=== PATIENT | female | born 1935 | race Caucasian/White ===

== ENCOUNTER → 2016-12-27 | Outpatient (CLI) | payer OTHER ==
[~2016-12-27] MED LIST: ASPI-435 PO; CALCTAB5 PO; CHOL100010 PO; FERR325T51 PO; GABA-112 PO; LSN/20125 PO; NIAC1TAB59 PO
--- NOTE | 2016-12-28 10:57 | MAMMOGRAPHY REPORT ---
BILATERAL DIGITAL SCREENING MAMMOGRAM WITH CAD: 12/27/2016 CLINICAL HISTORY: Routine screening. Patient has no complaints. TECHNIQUE: Bilateral CC and MLO views were obtained. Current study was also evaluated with a Comput er Aided Detection (CAD) system. COMPARISON: Comparison is made to exams dated: 11/27/2015 mammogram, 10/28/2014 mammogram, 10/25/2013 m ammogram, 11/07/2013 mammogram, 11/07/2013 ultrasound, and 10/24/2012 mammogram - [facility]. BREAST COMPOSITION: There are scattered areas of fibroglandular density in both breasts. FINDINGS: There are a few stable benign-appearing calcifications scattered in the breasts. Minimal vascular calcification. No suspicious mass, architectural distortion or cluster of suspicious micro calcifications is seen. IMPRESSION: ACR BI-RADS CATEGORY 1: NEGATIVE There is no mammographic evidence of malignancy. A 1 year screening mammogram is recommended. The p atient will receive written notification of the results. Approximately 10% of breast cancers are not detected with mammography. A negative mammographic repor t should not delay biopsy if a clinically suggestive mass is present. Mabel Sanchez M.D. ay/:12/27/2016 16:56:56 Boom Crane Operator: Danae ALONZO(Michael)(M), [facility] letter sent: Normal 1/2 BI-RADS Code: ACR BI-RADS Category 1: Negative
== END | disposition home or self-care (01) ==
LOC: C.MAMM 12:44
PROVIDERS: ATTEND Internal Medicine
DX: Z12.31 Encounter for screening mammogram for malignant neoplasm of breast (principal)

== ENCOUNTER → 2017-01-28 | Outpatient (CLI) | payer OTHER ==
[2017-01-28 12:38] LABS: BASO % 0.7 %; BASO ABS # 0.04 K/uL (0-0.2); COMPLETE YES; EOS % 3.6 %; HEMATOCRIT 34.2 % (37-47); IG% 0.2 %; LYMPH % 34.9 %; LYMPH ABS # 2.02 K/uL (1.2-3.4); MEAN CELL VOLUME 92.7 fL (80-100); MEAN CORPUSCULAR HEMOGLOBIN 30.1 pg (25-34); MEAN CORPUSCULAR HGB CONC 32.5 g/dl (32-36); MEAN PLATELET VOLUME 9.9 fL (7.4-10.4); MONO % 12.8 %; NEUT % 47.8 %; PLATELET COUNT 298 K/uL (130-400); RED BLOOD COUNT 3.69 M/uL (4.2-5.4); WHITE BLOOD COUNT 5.79 K/uL (4.8-10.8)
[2017-01-28 13:07] LABS: ALKALINE PHOSPHATASE 87 U/L (45-117); ALT/SGPT 17 U/L (12-78); AST/SGOT 15 U/L (15-37); BLOOD UREA NITROGEN 17 mg/dl (7-18); BUN/CREATININE RATIO 12.9 (10-20); CALCIUM 9.1 mg/dl (8.5-10.1); CARBON DIOXIDE 28 mmol/L (21-32); CHLORIDE 109 mmol/L (98-107); GLUCOSE 107 mg/dl (70-99); HDL CHOLESTEROL 74 mg/dl; POTASSIUM 3.9 mmol/L (3.5-5.1); SODIUM 142 mmol/L (136-145); TRIGLYCERIDES 126 mg/dl (0-150); VERY LOW DENSITY LIPOPROT CALC 25 mg/dl
[2017-01-28 13:12] LABS: CHOLESTEROL 200 mg/dl (0-200); CHOLESTEROL/HDL RATIO 2.7
[2017-01-28 13:34] LABS: ESTIMATED AVERAGE GLUCOSE 137 mg/dl; HA1C FLAG Normal (Normal)
== END | disposition home or self-care (01) ==
LOC: C.LABSPEC 12:22
PROVIDERS: ATTEND Internal Medicine
DX: D50.9 Iron deficiency anemia, unspecified (principal); N18.9 Chronic kidney disease, unspecified; I10 Essential (primary) hypertension; E11.9 Type 2 diabetes mellitus without complications; E78.5 Hyperlipidemia, unspecified

== ENCOUNTER → 2017-02-02 | Outpatient (CLI) | payer OTHER | END | disposition home or self-care (01) | LOC: C.PAPS 09:58 | PROVIDERS: ATTEND Internal Medicine | DX: Z12.4 Encounter for screening for malignant neoplasm of cervix (principal); Z78.0 Asymptomatic menopausal state ==

== ENCOUNTER → 2017-02-03 | Outpatient (CLI) | payer OTHER | END | disposition home or self-care (01) | LOC: C.LABSPEC 14:26 | PROVIDERS: ATTEND Internal Medicine | DX: Z12.11 Encounter for screening for malignant neoplasm of colon (principal) ==

== ENCOUNTER → 2017-07-28 | Outpatient (CLI) | payer OTHER ==
[2017-07-28 13:12] LABS: ALT/SGPT 17 U/L (12-78); AST/SGOT 17 U/L (15-37); BLOOD UREA NITROGEN 27 mg/dl (7-18); BUN/CREATININE RATIO 22.3 (10-20); CALCIUM 9.3 mg/dl (8.5-10.1); CARBON DIOXIDE 22 mmol/L (21-32); CHLORIDE 110 mmol/L (98-107); CHOLESTEROL 200 mg/dl (0-200); GLUCOSE 115 mg/dl (70-99); POTASSIUM 3.3 mmol/L (3.5-5.1); SODIUM 141 mmol/L (136-145); TRIGLYCERIDES 80 mg/dl (0-150); VERY LOW DENSITY LIPOPROT CALC 16 mg/dl
[2017-07-28 13:14] LABS: ALB/GLOB RATIO 1.1 (0.9-2); ALKALINE PHOSPHATASE 68 U/L (45-117); CHOLESTEROL/HDL RATIO 2.6; HDL CHOLESTEROL 78 mg/dl
[2017-07-28 14:15] LABS: ESTIMATED AVERAGE GLUCOSE 134 mg/dl; HA1C FLAG Normal (Normal)
== END | disposition home or self-care (01) ==
LOC: C.LABSPEC 12:19
PROVIDERS: ATTEND Internal Medicine
DX: I10 Essential (primary) hypertension (principal); E11.9 Type 2 diabetes mellitus without complications; N17.9 Acute kidney failure, unspecified

== ENCOUNTER → 2017-11-29 | Outpatient (CLI) | payer OTHER ==
[2017-11-29 14:16] LABS: ALBUMIN 3.5 gm/dl (3.4-5.0); ALT/SGPT 19 U/L (12-78); AST/SGOT 15 U/L (15-37); BLOOD UREA NITROGEN 35 mg/dl (7-18); CALCIUM 9.3 mg/dl (8.5-10.1); CARBON DIOXIDE 23 mmol/L (21-32); CREATININE 1.55 mg/dl (0.60-1.20); GLUCOSE 110 mg/dl (70-99); POTASSIUM 3.9 mmol/L (3.5-5.1); SODIUM 140 mmol/L (136-145)
[2017-11-29 14:17] LABS: HEMOGLOBIN A1C 6.6 % (4.5-5.6)
[2017-11-29 14:22] LABS: ALKALINE PHOSPHATASE 86 U/L (45-117); CHOLESTEROL 193 mg/dl (0-200); LDL CHOLESTEROL (DIRECT) 109 mg/dl; TOTAL PROTEIN 7.3 gm/dl (6.4-8.2)
== END | disposition home or self-care (01) ==
LOC: C.LABSPEC 12:38
PROVIDERS: ATTEND Internal Medicine
DX: I10 Essential (primary) hypertension (principal); E11.9 Type 2 diabetes mellitus without complications; N17.9 Acute kidney failure, unspecified

== ENCOUNTER → 2017-12-29 | Outpatient (CLI) | payer OTHER ==
--- NOTE | 2017-12-29 15:17 | MAMMOGRAPHY REPORT ---
BILATERAL DIGITAL SCREENING MAMMOGRAM TOMOSYNTHESIS WITH CAD: 12/29/2017 CLINICAL HISTORY: Routine screening. Patient has no complaints. TECHNIQUE: Breast tomosynthesis in addition to standard 2D mammography was performed. Current study was also evaluated with a Computer Aided Detection (CAD) system. COMPARISON: Comparison is made to exams dated: 12/27/2016 mammogram, 12/04/2015 mammogram, 11/27/2015 m ammogram, 10/28/2014 mammogram, 05/08/2014 mammogram, and 11/07/2013 mammogram - [facility]. BREAST COMPOSITION: There are scattered areas of fibroglandular density in both breasts. FINDINGS: No suspicious masses, calcifications, or areas of architectural distortion are noted in ei ther breast. There has been no significant interval change compared to prior exams. Scattered bilater al benign-appearing calcifications are not significantly changed. IMPRESSION: ACR BI-RADS CATEGORY 2: BENIGN There is no mammographic evidence of malignancy. A 1 year screening mammogram is recommended. The pa tient will receive written notification of the results. Approximately 10% of breast cancers are not detected with mammography. A negative mammographic report should not delay biopsy if a clinically suggestive mass is present. Margoth Dawson M.D. /:12/29/2017 12:40:50 Delivery Room Clerk: Didi BAER)(M), [facility] letter sent: Normal 1/2 BI-RADS Code: ACR BI-RADS Category 2: Benign
== END | disposition home or self-care (01) ==
LOC: C.MAMM 08:28
PROVIDERS: ATTEND Internal Medicine
DX: Z12.31 Encounter for screening mammogram for malignant neoplasm of breast (principal)

== ENCOUNTER → 2018-06-09 | Outpatient (CLI) | payer OTHER ==
[~2018-06-09] MED LIST changes: +LISI20TA8 PO; -LSN/20125 PO
--- NOTE | 2018-06-09 10:27 | DIAGNOSTIC IMAGING REPORT ---
R VENOUS DOPP LOWER EXT UNILAT CLINICAL HISTORY: 82 years-old Female presenting with RT LEG PAIN. TECHNIQUE: Real-time grayscale and color and spectral Doppler ultrasound imaging of the veins of the right lower extremity was performed. Compression and augmentation were also utilized. COMPARISON: None. FINDINGS: RIGHT: Common femoral vein: Patent. Greater saphenous vein: Patent. Deep femoral vein: Patent. Femoral vein: Patent. Popliteal vein: Patent. Calf veins: Patent. Other: None. IMPRESSION: No evidence of deep venous thrombosis. Electronically signed by: Americo Henson M.D. 06/09/2018 10:25 AM Dictated Date/Time: 06/09/2018 10:24 AM
== END | disposition home or self-care (01) ==
LOC: C.ULTR 09:48
PROVIDERS: ATTEND Internal Medicine
DX: M79.604 Pain in right leg (principal)

== ENCOUNTER 2022-06-04 17:34 | Inpatient (IN) ==
[2022-06-04 18:58] LABS: Basophils # (auto) 0.04 K/uL (0-0.2); Basophils % (auto) 0.5 %; Eosinophils # (auto) 0.02 K/uL (0-0.50); Eosinophils % (auto) 0.3 %; Hematocrit (blood only) 35.2 % (34.1-44.9); Hemoglobin 11.4 g/dl (12.0-16.0); Immature Granulocytes # (auto) 0.08 K/uL (0.00-0.02); Immature Granulocytes % (auto) 1.1 %; Lymphocytes # (auto) 0.71 K/uL (1.2-3.4); Lymphocytes % (auto) 9.8 %; Mean Corpuscular Hemoglobin 28.8 pg (25.0-34.0); Mean Corpuscular Hgb Conc 32.4 g/dL (32.0-36.0); Mean Corpuscular Volume 88.9 fL (80.0-100.0); Mean Platelet Volume 9.7 fL (9.4-12.3); Monocytes # (auto) 0.51 K/uL (0.24-0.82); Neutrophils # (auto) 5.92 K/uL (1.4-6.5); Neutrophils % (auto) 81.3 %; Platelet Count 302 K/uL (130-400); RDW Coefficient of Variation 14.1 % (11.5-14.5); RDW Standard Deviation 46.1 fL (36.4-46.3); Red Blood Count 3.96 M/uL (3.93-5.22); White Blood Count 7.28 K/ul (4.8-10.8)
[2022-06-04 19:20] LABS: INR 1.1 (0.9-1.1); Prothrombin Time 11.3 Seconds (9.0-12.0)
[2022-06-04] MEDS ORDERED: ACETAMINOPHEN 1,000 MG/100 ML VIAL IV STA (19:24)
[2022-06-04] MEDS ORDERED: SODIUM CHLORIDE 0.9% 1000ML 1,000 ML IV ONE ×2 (19:24→20:57)
[2022-06-04 19:26] LABS: Troponin I High Sensitivity 36.1 pg/ml (0-14)
[2022-06-04 19:32] LABS: Alanine Aminotransferase 19 U/L (7-52); Albumin Globulin Ratio 1.2 (0.9-2); Alkaline Phosphatase 80 U/L (34-104); Anion Gap 14 (3-11); Aspartate Aminotransferase 30 U/L (13-39); BUN Creatinine Ratio 19.5 (10-20); Bilirubin,Total 0.9 mg/dl (0.2-1.0); Blood Urea Nitrogen 25 mg/dl (6-23); Calcium 9.6 mg/dl (8.5-10.1); Carbon Dioxide 20 mmol/L (21-32); Chloride 102 mmol/L (98-107); Est GFR (African American) 44.5 ml/min; Est GFR (Non-African American) 38.4 ml/min; Globulin 3.4 gm/dl (2.5-4.0); Glucose 130 mg/dl (70-99(Fasting)); Magnesium 1.6 mg/dl (1.7-2.4); Phosphorus 2.2 mg/dl (2.5-4.9); Potassium 3.3 mmol/L (3.5-5.1); Sodium 136 mmol/L (136-145); Total Protein 7.4 gm/dl (6.0-8.3)
[2022-06-04 20:01] LABS: Appearance Urine Cloudy (Clear); Bacteria Urine Automated 4+ (Negative); Bilirubin Urine Negative (Negative); Blood Urine 2+ (Negative); Color Urine Yellow; Glucose Urine UA Negative (Negative); Ketones Urine 1+ (Negative); Leukocyte Esterase Urine 1+ (Negative); Nitrite Urine Positive (Negative); Protein Urine 3+ (Negative); RBC Urine Automated 0-4 /hpf (0-4); Specific Gravity Urine 1.012 (1.000-1.030); Urobilinogen Urine Negative (Negative); WBC Urine Automated >30 /hpf (0-5); pH Urine 5.5 (4.5-7.5)
[2022-06-04] MEDS ORDERED: cefTRIAXone SODIUM 2,000 MG/70 ML BAG IV STA (20:08)
--- NOTE | 2022-06-04 20:26 | XRay Report ---
XR chest 1V portable HISTORY: SEPSIS COMPARISON: Chest 07/25/2013. FINDINGS: There are low lung volumes. There are dense mitral anus calcifications. No focal lung conso lidations to suggest pneumonia. No evidence for pulmonary edema. The heart is top normal in size. No pleural effusions. No pneumothorax. Calcifications within the aortic knob. IMPRESSION: No acute process. ACT 112: Negative or not required by law. Electronically signed by: Júnior Lopez M.D. 06/04/2022 8:24 PM
[2022-06-04 20:48] LABS: Lyme Ab IgG w/WB Rflx Negative (Negative); Lyme Ab IgM w/WB Rflx Negative (Negative)
[2022-06-04] MEDS ORDERED: SODIUM CHLORIDE 0.9% 250 ML IV ONE (20:57)
[2022-06-04] MEDS ORDERED: ACETAMINOPHEN 325 MG TAB PO PRN (21:49)
[2022-06-04] MEDS ORDERED: POLYETHYLENE (MIRALAX) 17 GM PACK PO PRN (21:49)
[2022-06-04] MEDS ORDERED: ONDANSETRON INJ 2 MG/ML 2 ML VIAL IV PRN (21:49)
[2022-06-04] MEDS ORDERED: SODIUM CHLORIDE 0.9% 1000ML 1,000 ML IV SCH ×2 (22:00→23:54)
--- NOTE | 2022-06-04 22:21 | History & Physical Report ---
Date of Service June 04, 2022 Assessment & Plan (1) Sepsis: Plan: Patient is an 86-year-old female with past medical history of CKD, hyperlipidemia, diabetes, hypertension, gout, lower extremity edema, restless legs admitted for urinary tract infection. Sepsis likely secondary to urinary tract infection Patient meeting SIRS criteria due to tachycardia, tachypnea, fever Pro-Juan elevated to 7.12, UA consistent with likely infection Received ceftriaxone 2 g x 1 in ED continue daily NSS 1 L bolus x3 in ED continue IVF at 100 cc/h (1 bag ordered) Blood and urine cultures ordered Acetaminophen as needed for fevers Monitor daily CBC Elevated troponin Mild elevation to 36.1 Likely demand, no chest pain or cardiac complaints Monitor levels until downtrend Electrolyte disturbances Potassium 3.3, magnesium 1.6, Phos 2.2 Repleted upon admission Monitor levels in a.m. CKD Creatinine very slightly above baseline at 1.28 Likely due to dehydration in the setting of infection IV fluids as above Avoid nephrotoxins Hold Lasix at this time Leg edema Hold home Lasix as above Diabetes Hold home glipizide Sliding scale while admitted Hypertension Continue metoprolol tartrate 50 mg p.o. twice daily Hyperlipidemia Continue rosuvastatin 5 mg p.o. daily Restless legs Continue home pramipexole DVT prophylaxis: Heparin SQ Diet: Heart healthy, DM 2 Dispo: Admit to med telemetry CODE STATUS: Full (2) UTI (urinary tract infection): (3) Chronic kidney disease: (4) Hyperlipidemia: (5) Diabetes: (6) Hypertension: History of Present Illness Primary Care Provider: Gianna Ochoa MD Patient is an 86-year-old female with past medical history of CKD, hyperlipidemia, diabetes, hypertension, gout, lower extremity edema, restless legs who presents today for generalized malaise of several days duration. She states that she felt tired, somewhat weak, and had chills. Also reported some bilateral leg muscle aches. When asked about urinary symptoms, she states that she had been urinating more often but had thought nothing of it. Of note, the patient incidentally found out in her 70s that she had been born with only 1 kidney. Upon arrival to the ED, patient was found to be tachycardic, tachypneic, and febrile. She was given normal saline 1 L bolus x3 and acetaminophen 1000 mg IV x1. Work-up significant for procalcitonin of 7.12, potassium 3.3, Phos 2.2, mag 1.6, mild creatinine elevation to 1.28 with BUN of 25, mild high-sensitivity t roponin elevation of 36.1. UA showing cloudy appearance, 3+ protein, 1+ ketones, 2+ blood, positive nitrites, 1+ leuk esterase, 4+ bacteria. Chest x- ray showing no acute process. After UA, patient administered ceftriaxone 2 g x 1. At the time of my evaluation, patient is resting comfortably with well- controlled blood pressure, tachycardia and tachypnea resolved Still feels somewhat chilly, but denies nausea, vomiting, chest pain, palpitations, shortness of breath, headache, dizziness, neuro deficits. Allergies Allergy/AdvReac Type Severity Reaction Status Date / Time No Known Allergies Allergy Verified 06/04/22 18:22 Home Medications Medication Instructions Recorded Confirmed Type aspirin 81 mg tablet,delayed 81 mg PO DAILY 06/11/19 06/04/22 History release cholecalciferol (vitamin D3) 50 2,000 units PO DAILY 06/11/19 06/04/22 History mcg (2,000 unit) tablet potassium chloride 10 mEq 10 meq PO DAILY 06/11/19 06/04/22 History tablet,extended release furosemide 20 mg tablet 20 mg PO DAILY 04/27/22 06/04/22 History pramipexole 0.125 mg tablet 0.25 mg PO BID 04/27/22 06/04/22 History rosuvastatin 5 mg tablet 5 mg PO DAILY 04/27/22 06/04/22 History calcium carbonate 600 mg-vitamin 1 tab PO DAILY 06/04/22 06/04/22 History D3 10 mcg (400 unit) tablet (Calcium 600 + D(3)) glipizide 5 mg tablet 2.5 mg PO DAILY 06/04/22 06/04/22 History metoprolol tartrate 50 mg tablet 50 mg PO BID 06/04/22 06/04/22 History Past Med/Surg History Medical History (Updated 06/05/22 @ 03:58 by Bhargav Carter MD) Chronic kidney disease Diabetes Gout Hyperlipidemia Hypertension Peripheral neuropathy Family History Other No pertinent family history Social History Smoking Status: Never smoker Hx Alcohol Use: No Hx Substance Use: No Preferred Language: Croatian Visual Impairment: Partially Limited Hearing Ability: Use of Hearing Aid Tin Plater Required: No Beliefs That Will Affect Care: None Current Living Situation: Spouse current occupational status: retired Other Information That Helps Us Care for You: No Feels Safe at Home: Yes Safety Concerns: Feels Safe At This Time Assistive Devices: Hearing Aid - Bilateral Review of Systems Review of Systems: Per HPI Physical Exam Physical Exam: GENERAL: A&Ox3. NAD. HEENT: PERRL, EOMI. Moist mucous membranes. NECK: No JVD. No lymphadenopathy. CHEST/LUNGS: CTAB A/P. No crackles, wheezes, rales, rhonchi. HEART: RRR. No m/g/r. No carotid bruits. ABDOMEN: NT/ND, soft. BS+ x4 EXTREMITIES: No cyanosis, no clubbing, no edema SKIN: Warm and dry. No rashes or lesions. PSYCHIATRIC: Euthymic affect, no SI, no pressured speech, no hallucinations NEUROLOGIC: No FND. CN II-XII grossly intact. Results & Data Results & Data ([facility]) Vital Signs (Past 12 Hours) Vital Signs Temp Pulse Pulse Resp BP BP Pulse Ox 06/04/22 20:30 90 29 H 94 06/04/22 20:30 109/63 06/04/22 20:20 92 H 18 94 06/04/22 20:10 107 H 14 95 06/04/22 20:00 110 H 30 H 93 06/04/22 20:00 146/70 H 06/04/22 19:50 116 H 25 H 94 06/04/22 19:40 118 H 19 93 06/04/22 19:36 120 H 30 H 94 06/04/22 20:39 90 21 109/63 95 06/04/22 18:47 06/04/22 18:06 38 C H 150 H 18 182/84 H 94 O2 Del Method 06/04/22 20:30 06/04/22 20:30 06/04/22 20:20 06/04/22 20:10 06/04/22 20:00 06/04/22 20:00 06/04/22 19:50 06/04/22 19:40 06/04/22 19:36 06/04/22 20:39 Room Air 06/04/22 18:47 Room Air 06/04/22 18:06 Room Air Code Status & VTE Plan VTE Prophylaxis Plan VTE Prophylaxis will be ordered: Yes Supervising Physician Co-Signing Physician Notes Attending addendum: I have physically seen this patient, have supervised the medical residents activities, and agree with the H&P unless as otherwise noted. Assessment and Plan: Sepsis due to UTI- Follow urine culture and sensitivity Status post 3 L normal saline bolus in the ED Continue NSS at 100 mils per hour Follow blood culture sensitivity Ceftriaxone 2 g IV daily Follow serial CBC with differential and basic metabolic panel Elevated troponin- Highly sensitive troponin of 36.1 on admission Follow-up per protocol Likely supply demand mismatch Electrolyte disturbances/CKD Potassium 3.3, magnesium 1.6, phosphorus 2.2 on admission Creatinine 1.28 upon admission, with base 0.95 Replete IV and recheck Remaining orders and notations as noted Resident Activity Tracking Resident Involvement: Resident Care Provided Care Provided: Adult Hospital Medicine
[2022-06-04] MEDS ORDERED: GLUCOSE 10 TAB/TUBE PO PRN (22:47)
[2022-06-04] MEDS ORDERED: CARBOHYDRATES FOR HYPOGLYCEMIA PO PRN (22:47)
[2022-06-04] MEDS ORDERED: DEXTROSE 50% 50 ML SYRINGE IV PRN (22:47)
[2022-06-04] MEDS ORDERED: GLUCAGON FOR INJ 1 MG VIAL SQ PRN (22:47)
[2022-06-04] MEDS ORDERED: GLUCOSE 40% GEL 15 GM TUBE PO PRN (22:47)
[2022-06-04] MEDS ORDERED: POTASSIUM PHOS 3 MMOL/1 ML INFUSION IV STA (23:54)
[2022-06-04] MEDS ORDERED: POTASSIUM CHLORIDE CRTAB 20 MEQ TABCR PO STA (23:54)
--- NOTE | 2022-06-05 00:24 | Emergency Department Note ---
Impression & Plan Sepsis, Chronic kidney disease, UTI (urinary tract infection), KATY (acute kidney injury), Elevated troponin ED Provider Note NAME: CALE YADAV AGE: 86 SEX: F ARRIVES VIA: Walk-In INFORMANT: Patient ED PROVIDER(S): Bhargav Carter MD CHIEF COMPLAINT: fever, weakness, bodyaches PLAN: Disposition: Admit MEDICAL DECISION MAKING: The patient is a pleasant 86-year-old woman with a past medical history of hypertension, hyperlipidemia who presents to the emergency department accompanied by her for evaluation of fevers, weakness, and body aches that has been ongoing for the past 4 days. She denies any cough, congestion, nausea, vomiting, diarrhea or urinary symptoms. On arrival, the patient is uncomfortable but no acute distress, febrile to 38 with heart rate in the 150s and sinus tachycardia and blood pressure 180s/80s. She appears clinically dry. EKG without overt acute ischemia. CXR negative for acute cardiopulmonary proce ss. WBC and platelets within normal limits. H/H similar to prior range values. Chemistry without significant acidosis with bicarbonate of 20. Creatinine 1.28 increased from prior values consistent with patient's clinically dry appearance. Lactic acid 1.1, within normal limits. Potassium 3.3, phosphorus 2.2 magnesium 1.6. LFTs without significant abnormality. High-sensitivity troponin 36.1, nonspecific. Procalcitonin is elevated at 7. Patient's urinalysis is suspicious for infection with positive nitrites, leukoesterase and 4+. Lyme screen was negative. COVID-19 PCR was negative. The patient was treated with IV ceftriaxone as she has no history of resistant organisms. She was given 30 cc/kg for suspected sepsis though she is remained hemodynamically stable. The patient agrees with plan for admission for further management. Case was discussed with Dr. Abdul, [facility] [place], who will evaluate the patient for admission. Triage Nursing notes reviewed and agree them. Prior medical records reviewed Vital Signs: reviewed and remarkable for fever and tachycardia. Differential diagnosis: Viral syndrome, otitis, pharyngitis, pneumonia, influenza, meningitis, urinary tract infection, sepsis, bacteremia, as well as other pathologies. ER treatment provided: See below. Diagnostics interpreted by me: ECG: Sinus tachycardia, 127 bpm, no ectopy, LVH, no overt ST elevation or depression, QTC 453, QRS 76 Cardiac Monitoring: An order for continuous cardiac monitoring was placed and demonstrated Sinus tachycardia, 127 bpm, no ectopy. Laboratory studies: See below Imaging studies: See below Consultation(s): Case was discussed with Dr. Abdul, [facility] [place]ist, who will evaluate the patient for admission. HPI: The patient is a pleasant 86-year-old woman with a past medical history of hypertension, hyperlipidemia who presents to the emergency department accompanied by her for evaluation of fevers, weakness, and body aches that has been ongoing for the past 4 days. She denies any cough, congestion, nausea, vomiting, diarrhea or urinary symptoms. ROS: See above HPI for pertinent positives & negatives. A total of 10 systems reviewed and were otherwise negative. VITALS:See Below PHYSICAL EXAMINATION: GENERAL: Awake, alert, uncomfortable-appearing, in no distress HENT: Normocephalic, atraumatic. Oropharynx with dry mucous membranes and otherwise unremarkable. EYES: Normal conjunctiva. Sclera non-icteric. NECK: Supple. No nuchal rigidity. FROM. No JVD. RESPIRATORY: Clear to auscultation. CARDIAC: Tachycardic rate, normal rhythm. Extremities warm and well perfused. Pulses equal. ABDOMEN: Soft, non-distended. No tenderness to palpation. No rebound or guarding. No masses. RECTAL: Deferred. MUSCULOSKELETAL: Chest examination reveals no tenderness. The back is symmetrical on inspection without obvious abnormality. There is no CVA tenderness to palpation. Right knee with mild effusion with FROM intact. No significant warmth. Able to bear weight. LOWER EXTREMITIES: Calves are equal size bilaterally and non-tender. No edema. No discoloration. NEURO: Normal sensorium. No sensory or motor deficits noted. SKIN: No rash or jaundice noted. ED COURSE: Critical Care: I have personally spent greater than 35 minutes of critical care time in the direct management of this patient. This includes bedside care, interpretation of diagnostic studies, and testing, discussion with consultants, patient, and family members, and other required patient management activities. This 35 minutes is in excess of all separately billable procedures. 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 Beliefs That Will Affect Care: None Current Living Situation: Spouse current occupational status: retired Other Information That Helps Us Care for You: No Feels Safe at Home: Yes Safety Concerns: Feels Safe At This Time Assistive Devices: Hearing Aid - Bilateral Allergies Allergies Allergy/AdvReac Type Severity Reaction Status Date / Time No Known Allergies Allergy Verified 06/04/22 18:22 Home Meds Home Medications Medication Instructions Recorded Confirmed aspirin 81 mg tablet,delayed 81 mg PO DAILY 06/11/19 06/04/22 release cholecalciferol (vitamin D3) 50 2,000 units PO DAILY 06/11/19 06/04/22 mcg (2,000 unit) tablet potassium chloride 10 mEq 10 meq PO DAILY 06/11/19 06/04/22 tablet,extended release furosemide 20 mg tablet 20 mg PO DAILY 04/27/22 06/04/22 pramipexole 0.125 mg tablet 0.25 mg PO BID 04/27/22 06/04/22 rosuvastatin 5 mg tablet 5 mg PO DAILY 04/27/22 06/04/22 calcium carbonate 600 mg-vitamin 1 tab PO DAILY 06/04/22 06/04/22 D3 10 mcg (400 unit) tablet (Calcium 600 + D(3)) glipizide 5 mg tablet 2.5 mg PO DAILY 06/04/22 06/04/22 metoprolol tartrate 50 mg tablet 50 mg PO BID 06/04/22 06/04/22 Results & Data (ED) Vital Signs Vital Signs - 24 hr 06/04/22 18:06 06/04/22 18:47 06/04/22 20:39 Temperature 38 C H Temperature Source Temporal Artery Scan Pulse Rate 150 H Pulse Rate [Apical] 90 Pulse Rate from SpO2 Sensor Respiratory Rate 18 21 Respiratory Effort / Characteristics Non-Labored Spontaneous Respiratory Depth Normal Respiratory Pattern Regular Blood Pressure 182/84 H Blood Pressure [Right Arm] 109/63 Blood Pressure Mean 116 Blood Pressure Mean [Right Arm] 78 Pulse Oximetry 94 95 Oxygen Delivery Method Room Air Room Air Room Air Sepsis Recent Fever Within 48 Hours Yes Sepsis New/Unexplained Change in Mental Status No Sepsis Action Taken by Nursing No Action Required 06/04/22 19:36 06/04/22 19:40 06/04/22 19:50 Temperature Temperature Source Pulse Rate 120 H 118 H 116 H Pulse Rate [Apical] Pulse Rate from SpO2 Sensor 119 H 118 H 116 H Respiratory Rate 30 H 19 25 H Respiratory Effort / Characteristics Respiratory Depth Respiratory Pattern Blood Pressure Blood Pressure [Right Arm] Blood Pressure Mean Blood Pressure Mean [Right Arm] Pulse Oximetry 94 93 94 Oxygen Delivery Method Sepsis Recent Fever Within 48 Hours Sepsis New/Unexplained Change in Mental Status Sepsis Action Taken by Nursing 06/04/22 20:00 06/04/22 20:00 06/04/22 20:10 Temperature Temperature Source Pulse Rate 110 H 107 H Pulse Rate [Apical] Pulse Rate from SpO2 Sensor 110 H 107 H Respiratory Rate 30 H 14 Respiratory Effort / Characteristics Respiratory Depth Respiratory Pattern Blood Pressure 146/70 H Blood Pressure [Right Arm] Blood Pressure Mean 95 Blood Pressure Mean [Right Arm] Pulse Oximetry 93 95 Oxygen Delivery Method Sepsis Recent Fever Within 48 Hours Sepsis New/Unexplained Change in Mental Status Sepsis Action Taken by Nursing 06/04/22 20:20 06/04/22 20:30 06/04/22 20:30 Temperature Temperature Source Pulse Rate 92 H 90 Pulse Rate [Apical] Pulse Rate from SpO2 Sensor 93 H 90 Respiratory Rate 18 29 H Respiratory Effort / Characteristics Respiratory Depth Respiratory Pattern Blood Pressure 109/63 Blood Pressure [Right Arm] Blood Pressure Mean 78 Blood Pressure Mean [Right Arm] Pulse Oximetry 94 94 Oxygen Delivery Method Sepsis Recent Fever Within 48 Hours Sepsis New/Unexplained Change in Mental Status Sepsis Action Taken by Nursing 06/04/22 21:10 06/04/22 21:20 06/04/22 21:30 Temperature Temperature Source Pulse Rate 90 79 Pulse Rate [Apical] Pulse Rate from SpO2 Sensor 90 79 Respiratory Rate 20 25 H Respiratory Effort / Characteristics Respiratory Depth Respiratory Pattern Blood Pressure 100/45 L Blood Pressure [Right Arm] Blood Pressure Mean 63 Blood Pressure Mean [Right Arm] Pulse Oximetry 95 94 Oxygen Delivery Method Sepsis Recent Fever Within 48 Hours Sepsis New/Unexplained Change in Mental Status Sepsis Action Taken by Nursing 06/04/22 21:30 06/04/22 21:40 06/04/22 21:50 Temperature Temperature Source Pulse Rate 74 81 76 Pulse Rate [Apical] Pulse Rate from SpO2 Sensor 73 81 76 Respiratory Rate 26 H 27 H 19 Respiratory Effort / Characteristics Respiratory Depth Respiratory Pattern Blood Pressure Blood Pressure [Right Arm] Blood Pressure Mean Blood Pressure Mean [Right Arm] Pulse Oximetry 93 94 94 Oxygen Delivery Method Sepsis Recent Fever Within 48 Hours Sepsis New/Unexplained Change in Mental Status Sepsis Action Taken by Nursing Laboratory Data Attestation: I reviewed the patient's lab results. Result diagrams: 06/04/22 18:42 06/04/22 18:42 Lab Results 06/04/22 06/04/22 06/04/22 Range/Units 18:42 18:42 18:42 WBC 7.28 (4.8-10.8) K/ul RBC 3.96 (3.93-5.22) M/uL Hgb 11.4 L (12.0-16.0) g/dl Hct 35.2 (34.1-44.9) % MCV 88.9 (80.0-100.0) fL MCH 28.8 (25.0-34.0) pg MCHC 32.4 (32.0-36.0) g/dL RDW Std Deviation 46.1 (36.4-46.3) fL RDW Coeff of [place] 14.1 (11.5-14.5) % Plt Count 302 (130-400) K/uL MPV 9.7 (9.4-12.3) fL Immature Gran % (Auto) 1.1 % Neut % (Auto) 81.3 % Lymph % (Auto) 9.8 % [place] % (Auto) 7.0 % Eos % (Auto) 0.3 % Baso % (Auto) 0.5 % Neut # (Auto) 5.92 (1.4-6.5) K/uL Lymph # (Auto) 0.71 L (1.2-3.4) K/uL [place] # (Auto) 0.51 (0.24-0.82) K/uL Eos # (Auto) 0.02 (0-0.50) K/uL Baso # (Auto) 0.04 (0-0.2) K/uL Immature Gran # (Auto) 0.08 H (0.00-0.02) K/uL PT (9.0-12.0) Seconds INR (0.9-1.1) APTT (21.0-31.0) Seconds PTT Ratio Sodium 136 (136-145) mmol/L Potassium 3.3 L (3.5-5.1) mmol/L Chloride 102 (98-107) mmol/L Carbon Dioxide 20 L (21-32) mmol/L Anion Gap 14 H (3-11) BUN 25 H (6-23) mg/dl Creatinine 1.28 H (0.6-1.2) mg/dl Est Cr Clr Drug Dosing Not Reportable Est GFR ( Amer) 44.5 ml/min Est GFR (Non-Af Amer) 38.4 ml/min BUN/Creatinine Ratio 19.5 (10-20) Glucose 130 H (70-99(Fasting)) mg/dl Lactate (0.4-2.0) mmol/L Calcium 9.6 (8.5-10.1) mg/dl Phosphorus 2.2 L (2.5-4.9) mg/dl Magnesium 1.6 L (1.7-2.4) mg/dl Total Bilirubin 0.9 (0.2-1.0) mg/dl AST 30 (13-39) U/L ALT 19 (7-52) U/L Alkaline Phosphatase 80 (34-104) U/L Troponin I High Sens 36.1 H (0-14) pg/ml Total Protein 7.4 (6.0-8.3) gm/dl Albumin 4.0 (3.4-5.0) gm/dl Globulin 3.4 (2.5-4.0) gm/dl Albumin/Globulin Ratio 1.2 (0.9-2) Procalcitonin 7.12 H (0-0.5) ng/ml Urine Color Urine Appearance (Clear) Urine pH (4.5-7.5) Ur Specific [place] (1.000-1.030) Urine Protein (Negative) Urine Glucose (UA) (Negative) Urine Ketones (Negative) Urine Blood (Negative) Urine Nitrite (Negative) Urine Bilirubin (Negative) Urine Urobilinogen (Negative) Ur Leukocyte Esterase (Negative) Urine WBC (Auto) (0-5) /hpf Urine RBC (Auto) (0-4) /hpf U Hyaline Cast (Auto) (0-5) /lpf U Epithel Cells (Auto) (0-5) /lpf Urine Bacteria (Auto) (Negative) Lyme Disease IgG Ab (Negative) Lyme Disease IgM Ab (Negative) SARS-CoV-2 (PCR) (Negative) 06/04/22 06/04/22 06/04/22 Range/Units 18:42 18:42 18:42 WBC (4.8-10.8) K/ul RBC (3.93-5.22) M/uL Hgb (12.0-16.0) g/dl Hct (34.1-44.9) % MCV (80.0-100.0) fL MCH (25.0-34.0) pg MCHC (32.0-36.0) g/dL RDW Std Deviation (36.4-46.3) fL RDW Coeff of [place] (11.5-14.5) % Plt Count (130-400) K/uL MPV (9.4-12.3) fL Immature Gran % (Auto) % Neut % (Auto) % Lymph % (Auto) % [place] % (Auto) % Eos % (Auto) % Baso % (Auto) % Neut # (Auto) (1.4-6.5) K/uL Lymph # (Auto) (1.2-3.4) K/uL [place] # (Auto) (0.24-0.82) K/uL Eos # (Auto) (0-0.50) K/uL Baso # (Auto) (0-0.2) K/uL Immature Gran # (Auto) (0.00-0.02) K/uL PT 11.3 (9.0-12.0) Seconds INR 1.1 (0.9-1.1) APTT 28.0 (21.0-31.0) Seconds PTT Ratio 1.0 Sodium (136-145) mmol/L Potassium (3.5-5.1) mmol/L Chloride (98-107) mmol/L Carbon Dioxide (21-32) mmol/L Anion Gap (3-11) BUN (6-23) mg/dl Creatinine (0.6-1.2) mg/dl Est Cr Clr Drug Dosing Est GFR ( Amer) ml/min Est GFR (Non-Af Amer) ml/min BUN/Creatinine Ratio (10-20) Glucose (70-99(Fasting)) mg/dl Lactate 1.1 (0.4-2.0) mmol/L Calcium (8.5-10.1) mg/dl Phosphorus (2.5-4.9) mg/dl Magnesium (1.7-2.4) mg/dl Total Bilirubin (0.2-1.0) mg/dl AST (13-39) U/L ALT (7-52) U/L Alkaline Phosphatase (34-104) U/L Troponin I High Sens (0-14) pg/ml Total Protein (6.0-8.3) gm/dl Albumin (3.4-5.0) gm/dl Globulin (2.5-4.0) gm/dl Albumin/Globulin Ratio (0.9-2) Procalcitonin (0-0.5) ng/ml Urine Color Urine Appearance (Clear) Urine pH (4.5-7.5) Ur Specific [place] (1.000-1.030) Urine Protein (Negative) Urine Glucose (UA) (Negative) Urine Ketones (Negative) Urine Blood (Negative) Urine Nitrite (Negative) Urine Bilirubin (Negative) Urine Urobilinogen (Negative) Ur Leukocyte Esterase (Negative) Urine WBC (Auto) (0-5) /hpf Urine RBC (Auto) (0-4) /hpf U Hyaline Cast (Auto) (0-5) /lpf U Epithel Cells (Auto) (0-5) /lpf Urine Bacteria (Auto) (Negative) Lyme Disease IgG Ab Negative (Negative) Lyme Disease IgM Ab Negative (Negative) SARS-CoV-2 (PCR) (Negative) 06/04/22 06/04/22 Range/Units 19:20 19:20 WBC (4.8-10.8) K/ul RBC (3.93-5.22) M/uL Hgb (12.0-16.0) g/dl Hct (34.1-44.9) % MCV (80.0-100.0) fL MCH (25.0-34.0) pg MCHC (32.0-36.0) g/dL RDW Std Deviation (36.4-46.3) fL RDW Coeff of [place] (11.5-14.5) % Plt Count (130-400) K/uL MPV (9.4-12.3) fL Immature Gran % (Auto) % Neut % (Auto) % Lymph % (Auto) % [place] % (Auto) % Eos % (Auto) % Baso % (Auto) % Neut # (Auto) (1.4-6.5) K/uL Lymph # (Auto) (1.2-3.4) K/uL [place] # (Auto) (0.24-0.82) K/uL Eos # (Auto) (0-0.50) K/uL Baso # (Auto) (0-0.2) K/uL Immature Gran # (Auto) (0.00-0.02) K/uL PT (9.0-12.0) Seconds INR (0.9-1.1) APTT (21.0-31.0) Seconds PTT Ratio Sodium (136-145) mmol/L Potassium (3.5-5.1) mmol/L Chloride (98-107) mmol/L Carbon Dioxide (21-32) mmol/L Anion Gap (3-11) BUN (6-23) mg/dl Creatinine (0.6-1.2) mg/dl Est Cr Clr Drug Dosing Est GFR ( Amer) ml/min Est GFR (Non-Af Amer) ml/min BUN/Creatinine Ratio (10-20) Glucose (70-99(Fasting)) mg/dl Lactate (0.4-2.0) mmol/L Calcium (8.5-10.1) mg/dl Phosphorus (2.5-4.9) mg/dl Magnesium (1.7-2.4) mg/dl Total Bilirubin (0.2-1.0) mg/dl AST (13-39) U/L ALT (7-52) U/L Alkaline Phosphatase (34-104) U/L Troponin I High Sens (0-14) pg/ml Total Protein (6.0-8.3) gm/dl Albumin (3.4-5.0) gm/dl Globulin (2.5-4.0) gm/dl Albumin/Globulin Ratio (0.9-2) Procalcitonin (0-0.5) ng/ml Urine Color Yellow Urine Appearance Cloudy A (Clear) Urine pH 5.5 (4.5-7.5) Ur Specific [place] 1.012 (1.000-1.030) Urine Protein 3+ H (Negative) Urine Glucose (UA) Negative (Negative) Urine Ketones 1+ H (Negative) Urine Blood 2+ H (Negative) Urine Nitrite Positive A (Negative) Urine Bilirubin Negative (Negative) Urine Urobilinogen Negative (Negative) Ur Leukocyte Esterase 1+ H (Negative) Urine WBC (Auto) >30 H (0-5) /hpf Urine RBC (Auto) 0-4 (0-4) /hpf U Hyaline Cast (Auto) 1-5 (0-5) /lpf U Epithel Cells (Auto) 5-10 H (0-5) /lpf Urine Bacteria (Auto) 4+ H (Negative) Lyme Disease IgG Ab (Negative) Lyme Disease IgM Ab (Negative) SARS-CoV-2 (PCR) NEGATIVE (Negative) Administered Medications Magnesium Sulfate/Dextrose (Magnesium Sulfate / D5w) 1 gm in 100 mls @ 50 mls/hr IV Q2H JULIETTE Stop: 06/05/22 04:14 Last Admin: 06/05/22 03:17 Dose: 50 mls/hr Documented By: MED Sodium Chloride (Nss 1000ml) 1,000 mls @ 100 mls/hr IV .Q10H JULIETTE Stop: 06/05/22 09:53 Last Admin: 06/05/22 00:20 Dose: 100 mls/hr Documented By: MED Discontinued Medications Sodium Chloride (Nss 1000ml) 1,000 mls @ 999 mls/hr IV .Q1H1M ONE Stop: 06/04/22 20:24 Last Admin: 06/04/22 19:39 Dose: 999 mls/hr Documented By: MED Acetaminophen (Ofirmev) 1,000 mg in 100 mls @ 400 mls/hr IV NOW STA Stop: 06/04/22 19:38 Last Infusion: 06/04/22 20:30 Dose: 0 mls/hr Documented By: food server: 06/04/22 19:38 Dose: 400 mls/hr Documented By: MED Ceftriaxone Sodium (Rocephin) 2,000 mg in 70 mls @ 140 mls/hr IV NOW STA Stop: 06/04/22 20:37 Last Infusion: 06/04/22 23:33 Dose: 0 mls/hr Documented By: food server: 06/04/22 20:28 Dose: 140 mls/hr Documented By: MED Sodium Chloride (Nss 1000ml) 1,000 mls @ 999 mls/hr IV .Q1H1M ONE Stop: 06/04/22 21:57 Last Infusion: 06/04/22 23:33 Dose: 0 mls/hr Documented By: food server: 06/04/22 22:10 Dose: 999 mls/hr Documented By: MED Sodium Chloride (Nss) 250 mls @ 999 mls/hr IV .Q16M ONE Stop: 06/04/22 21:12 Last Infusion: 06/05/22 03:31 Dose: 0 mls/hr Documented By: food server: 06/04/22 23:30 Dose: 999 mls/hr Documented By: MED Potassium Phosphate 9 mmol/ (Sodium Chloride) 253 mls @ 170 mls/hr IV 0030 ONE Stop: 06/05/22 01:59 Last Infusion: 06/05/22 03:31 Dose: 0 mls/hr Documented By: food server: 06/05/22 01:32 Dose: 170 mls/hr Documented By: MED Potassium Chloride (Potassium Chloride Crtab 20 Meq Tabcr) 20 meq PO NOW STA Stop: 06/04/22 23:55 Last Admin: 06/05/22 00:19 Dose: 20 meq Documented By: MED Imaging Data Radiologist's Impression: Chest X-Ray 06/04/22 18:32 XR chest 1V portable HISTORY: SEPSIS COMPARISON: Chest 07/25/2013. FINDINGS: There are low lung volumes. There are dense mitral anus calcifications. No focal lung consolidations to suggest pneumonia. No evidence for pulmonary edema. The heart is top normal in size. No pleural effusions. No pneumothorax. Calcifications within the aortic knob. IMPRESSION: No acute process. ACT 112: Negative or not required by law. Electronically signed by: Júnior Lopez M.D. 06/04/2022 8:24 PM Discharge Plan Visit Data Chief Complaint: Illness Stated Complaint: COLD, WEAKNESS ED Provider: Bhargav Carter Discharge Problem: Sepsis, Chronic kidney disease, UTI (urinary tract infection), KATY (acute kidney injury), Elevated troponin Patient Disposition: Admitted As Inpatient Discharge Instructions Interventions: ED Discharge Assessment Last Done: 06/05/22 02:49 : Sepsis Qualifiers: Sepsis type: sepsis due to unspecified organism Sepsis acute organ dysfunction status: with acute organ dysfunction Severe sepsis acute organ dysfunction type: acute renal failure Acute renal failure type: unspecified Severe sepsis shock status: without septic shock Qualified Code(s): A41.9 - Sepsis, unspecified organism Chronic kidney disease Qualifiers: Chronic kidney disease stage: unspecified stage Qualified Code(s): N18.9 - Chronic kidney disease, unspecified
[2022-06-05] MEDS ORDERED: POTASSIUM PHOSPHATE 9 MMOL in SODIUM CHLORIDE 0.9% 250 ML IV ONE (00:30)
[2022-06-05] MEDS: MAGNESIUM SULFATE / D5W 1 GM/100 ML BAG IV SCH ×2 (03:17→05:14)
[2022-06-05 06:19] LABS: Basophils # (auto) 0.04 K/uL (0-0.2); Basophils % (auto) 0.3 %; Eosinophils # (auto) 0.01 K/uL (0-0.50); Eosinophils % (auto) 0.1 %; Hematocrit (blood only) 30.9 % (34.1-44.9); Hemoglobin 9.8 g/dl (12.0-16.0); Immature Granulocytes # (auto) 0.07 K/uL (0.00-0.02); Immature Granulocytes % (auto) 0.6 %; Lymphocytes # (auto) 1.28 K/uL (1.2-3.4); Lymphocytes % (auto) 10.9 %; Mean Corpuscular Hemoglobin 28.7 pg (25.0-34.0); Mean Corpuscular Hgb Conc 31.7 g/dL (32.0-36.0); Mean Corpuscular Volume 90.6 fL (80.0-100.0); Mean Platelet Volume 9.6 fL (9.4-12.3); Monocytes # (auto) 1.37 K/uL (0.24-0.82); Monocytes % (auto) 11.6 %; Neutrophils # (auto) 9.02 K/uL (1.4-6.5); Neutrophils % (auto) 76.5 %; Platelet Count 294 K/uL (130-400); RDW Coefficient of Variation 14.6 % (11.5-14.5); RDW Standard Deviation 48.8 fL (36.4-46.3); Red Blood Count 3.41 M/uL (3.93-5.22); White Blood Count 11.79 K/ul (4.8-10.8)
[2022-06-05 06:44] LABS: Calcium 8.3 mg/dl (8.5-10.1); Creatinine Clr Calc Pharmacy 38.8 ml/min; Est GFR (African American) 56.5 ml/min; Est GFR (Non-African American) 48.7 ml/min; Magnesium 2.2 mg/dl (1.7-2.4); Phosphorus 3.8 mg/dl (2.5-4.9); Potassium 3.2 mmol/L (3.5-5.1)
[2022-06-05] MEDS: ROSUVASTATIN CALCIUM 5 MG TAB PO SCH (08:02)
[2022-06-05] MEDS: POTASSIUM CHLORIDE 10 MEQ TABCR PO SCH (08:02)
[2022-06-05] MEDS: CHOLECALCIFEROL 1,000 UNITS 25 MCG TAB PO SCH (08:02)
[2022-06-05] MEDS: PRAMIPEXOLE DIHYDROCHLO 0.25 MG TAB PO SCH ×2 (08:02→21:51)
[2022-06-05] MEDS: CALCIUM 600MG + VIT D 400 IU TAB PO SCH (08:03)
[2022-06-05] MEDS: ASPIRIN 81 MG ECTAB PO SCH (08:03)
[2022-06-05] MEDS: HEPARIN SOD 5,000 UNIT/0.5 ML VIAL SQ SCH ×2 (08:03→22:24)
[2022-06-05] MEDS: METOPROLOL TARTRATE 50 MG TAB PO SCH ×2 (08:04→21:50)
[2022-06-05 08:06] LABS: A calco-baum cmplx NotReported Not Detected (NotDetected); Bact fragilis Not Reported Not Detected (NotDetected); C auris Not Reported Not Detected (NotDetected); CTX-M Resistant Gene Not Detected (NotDetected); Calbicans Not Reported Not Detected (NotDetected); Candida glabrata Not Reported Not Detected (NotDetected); Candida krusei Not Reported Not Detected (NotDetected); Cneoformans/gatti Not Reported Not Detected (NotDetected); Cparapsilosis Not Reported Not Detected (NotDetected); Ctropicalis Not Reported Not Detected (NotDetected); E cloacae compx Not Reported Not Detected (NotDetected); Efaecalis Not Reported Not Detected (NotDetected); Efaecium Not Reported Not Detected (NotDetected); Enterobacterales DETECTED (NotDetected); Enterobacterales Not Reported DETECTED (NotDetected); Escherichia coli Not Reported DETECTED (NotDetected); H influenzae Not Reported Not Detected (NotDetected); IMP Resistant Gene Not Detected (NotDetected); K aerogenes Not Reported Not Detected (NotDetected); KPC Resistant Gene Not Detected (NotDetected); Koxytoca Not Reported Not Detected (NotDetected); Kpneumoniae grp Not Reported Not Detected (NotDetected); Lmonocyt Not Reported Not Detected (NotDetected); N meningitidis Not Reported Not Detected (NotDetected); NDM Resistant Gene Not Detected (NotDetected); OXA 48 Like Resistant Gene Not Detected (NotDetected); P aeruginosa Not Reported Not Detected (NotDetected); Proteus spp Not Reported Not Detected (NotDetected); Salmonella spp Not Reported Not Detected (NotDetected); Smarcescens Not Reported Not Detected (NotDetected); Staph lugdunensis Not Reported Not Detected (NotDetected); Staph spp. Not Reported Not Detected (NotDetected); Staphaureus Not Reported Not Detected (NotDetected); Staphepi Not Reported Not Detected (NotDetected); Stenmaltophilia Not Reported Not Detected (NotDetected); Strep agal(GrpB) Not Reported Not Detected (NotDetected); Strep pneum Not Reported Not Detected (NotDetected); Strep pyog (GrpA) Not Reported Not Detected (NotDetected); Strep spp Not Reported Not Detected (NotDetected); VIM Resistant Gene Not Detected (NotDetected); mcr-1 Colistin Resistant Gene Not Detected (NotDetected)
[2022-06-05 08:16] LABS: Estimated Average Glucose 143 mg/dl; Hemoglobin A1C 6.6 % (4.5-5.6)
[2022-06-05] MEDS: INSULIN ASPART PER UNIT SC SCH ×4 (08:26→21:50)
--- NOTE | 2022-06-05 09:18 | Hospitalist Progress Note ---
Date of Service June 05, 2022 Assessment & Plan (1) Sepsis: Plan: Patient is an 86-year-old female with past medical history of CKD, hyperlipidemia, diabetes, hypertension, gout, lower extremity edema, restless legs admitted for urinary tract infection. Sepsis likely secondary to urinary tract infection Patient meeting SIRS criteria due to tachycardia, tachypnea, fever om admission; vital signs stable today afebrile, HR 60-80s, BP= 158/63 - Positive blood culture in both tubes: gram - bacilli - Urine culture also growing gram - bacilli Pro-Juan elevated to 7.12, UA consistent with likely infection Received ceftriaxone 2 g x 1 in ED continue daily NSS 1 L bolus x3 in ED, plus an additional 1L given at 100ml/hr - Maintenance fluids- NSS 60ml/hr Acetaminophen as needed for fevers Monitor daily CBC Elevated troponin Mild elevation to 36.1, peaked at 58.2 and now trending down. Most recent 37.5 Likely demand, no chest pain or cardiac complaints Electrolyte disturbances Potassium 3.2, magnesium 2.2, Phos 3.8 Potassium repleted. Mg and phosphorus were low on admission- were repleted. Continue to monitor CKD Creatinine on admission= 1.28, down to 1.05 with IV fluids Likely due to dehydration in the setting of infection Avoid nephrotoxins Hold Lasix at this time Leg edema Hold home Lasix as above Diabetes Hold home glipizide Sliding scale while admitted Hypertension Continue metoprolol tartrate 50 mg p.o. twice daily Hyperlipidemia Continue rosuvastatin 5 mg p.o. daily Restless legs Continue home pramipexole DVT prophylaxis: Heparin SQ Diet: Heart healthy, DM 2 Dispo: Admit to med telemetry CODE STATUS: Full (2) UTI (urinary tract infection): (3) Chronic kidney disease: (4) Hyperlipidemia: (5) Diabetes: (6) Hypertension: Admission and Anticipated Discharge Date Admission Date: June 04, 2022 Supervising Physician Co-Signing Physician Notes I personally examined the patient and verified all matthews points of history and exam, discussed case, and agree with decision making with Dr Preston. Still feeling malaise and occasional rigors Vitals noted, in general she is fatigued does have a rigor while I am in the room, but otherwise in no distress. HEENT normocephalic atraumatic mucous membranes moist. Abdomen soft nondistended nontender no masses organomegaly. SepsisUTI with subsequent gram-negative bacteremiastabilizing. Continue Rocephin pending ID and S. Continue supportive care Melena by historyabdominal exam benign vitals good, last colonoscopy within the last few yearscontinue to follow closely, otherwise outpatient follow-up DVT proph heparin SQ Subjective 86 year old female with a past medical history of CKD, HLD, diabetes, HTN, gout, LE edema, restless leg syndrome. She presented to the ED yesterday with generalized fatigue for the past several days. Upon presentation she was found to be tachycardic , tachypneic and febrile. She was given NS 1L bolus x3. Work- up significant for procalcitonin of 7.12, potassium 3.3, Phos 2.2, mag 1.6, mild creatinine elevation to 1.28 with BUN of 25, mild high-sensitivity troponin elevation of 36.1. UA showing cloudy appearance, 3+ protein, 1+ ketones, 2+ blood, positive nitrites, 1+ leuk esterase, 4+ bacteria. Chest x-ray showing no acute process. After UA, patient administered ceftriaxone 2 g x 1. She was resting comfortably this morning. She states that she has been having chills and increased urinary frequency. Denies nausea, vomiting, chest pain, dyspnea, abdominal/flank pain, hematuria, dysuria. Physical Exam Physical Exam: Constitutional: well-appearing, no acute distress HEENT: NCAT, no conjunctival injection CV: regular rhythm, no murmur appreciated, extremities well-perfused, no LE edema Resp: CTABL, no wheezes/rales/rhonchi appreciated, no increased work of breathing GI: soft, nondistended, nontender, BS normoactive, no CVA tenderness MSK: no gross deformities appreciated Skin: warm, dry, no rash appreciated Neuro: alert, oriented, no focal neurologic deficit appreciated Results & Data Results & Data ([facility]) Vital Signs (Past 12 Hours) Vital Signs Temp Pulse Pulse Resp BP BP Pulse Ox 06/05/22 06:23 36.7 C 79 22 159/79 H 97 06/05/22 05:10 82 25 H 97 06/05/22 05:00 66 16 97 06/05/22 05:00 134/70 06/05/22 04:50 58 L 19 98 06/05/22 04:40 73 19 97 06/05/22 04:30 63 14 97 06/05/22 04:30 115/45 L 06/05/22 04:20 58 L 22 97 06/05/22 04:10 57 L 19 96 06/05/22 04:00 62 26 H 98 06/05/22 04:00 106/56 L 06/05/22 03:50 54 L 22 96 06/05/22 03:40 56 L 20 96 06/05/22 03:30 55 L 23 98 06/05/22 03:30 120/48 L 06/05/22 03:20 61 23 98 06/05/22 03:10 61 15 98 06/05/22 03:01 104/55 L 06/05/22 03:01 56 L 20 95 06/05/22 03:00 49 L 11 L 98 06/05/22 02:50 61 23 97 06/05/22 02:40 98 06/05/22 02:30 61 17 99 06/05/22 02:30 100/48 L 06/05/22 02:20 58 L 23 100 06/05/22 02:10 56 L 21 100 06/05/22 02:00 61 14 97 06/05/22 02:00 114/55 L 06/05/22 01:50 53 L 22 98 06/05/22 01:40 66 15 98 06/05/22 01:30 64 23 98 06/05/22 01:30 111/47 L 06/05/22 01:27 62 14 06/05/22 01:10 66 22 94 06/05/22 01:00 62 21 96 06/05/22 01:00 109/54 L 06/05/22 00:50 73 20 97 06/05/22 00:40 70 23 96 06/05/22 00:30 71 18 96 06/05/22 00:30 120/61 06/05/22 00:25 97 06/05/22 00:10 62 27 H 94 06/05/22 00:00 69 22 94 06/04/22 23:53 73 06/04/22 23:40 72 23 92 06/04/22 23:30 77 23 93 06/04/22 23:30 99/58 L 06/04/22 23:29 71 21 06/04/22 22:50 72 23 96 08/19/22 22:40 95 06/04/22 22:40 106/52 L 06/04/22 22:31 95 06/04/22 22:30 95/53 L 06/04/22 22:29 95 06/04/22 22:20 95 06/04/22 22:13 93 06/04/22 22:13 109/46 L 06/04/22 22:00 84 18 93 06/04/22 22:00 118/59 L 06/04/22 21:50 76 19 94 06/04/22 21:40 81 27 H 94 06/04/22 21:30 74 26 H 93 06/04/22 21:30 100/45 L 06/04/22 21:20 79 25 H 94 06/04/22 21:10 90 20 95 06/05/22 03:27 06/05/22 03:25 20 98 06/05/22 03:25 67 20 104/55 L 98 06/05/22 02:49 06/05/22 00:37 62 20 120/61 97 Pulse Ox O2 Del Method O2 Del Method 06/05/22 06:23 Room Air 06/05/22 05:10 06/05/22 05:00 06/05/22 05:00 06/05/22 04:50 06/05/22 04:40 06/05/22 04:30 06/05/22 04:30 06/05/22 04:20 06/05/22 04:10 06/05/22 04:00 06/05/22 04:00 06/05/22 03:50 06/05/22 03:40 06/05/22 03:30 06/05/22 03:30 06/05/22 03:20 06/05/22 03:10 06/05/22 03:01 06/05/22 03:01 06/05/22 03:00 06/05/22 02:50 06/05/22 02:40 06/05/22 02:30 06/05/22 02:30 06/05/22 02:20 06/05/22 02:10 06/05/22 02:00 06/05/22 02:00 06/05/22 01:50 06/05/22 01:40 06/05/22 01:30 06/05/22 01:30 06/05/22 01:27 06/05/22 01:10 06/05/22 01:00 06/05/22 01:00 06/05/22 00:50 06/05/22 00:40 06/05/22 00:30 06/05/22 00:30 06/05/22 00:25 06/05/22 00:10 06/05/22 00:00 06/04/22 23:53 06/04/22 23:40 06/04/22 23:30 06/04/22 23:30 06/04/22 23:29 06/04/22 22:50 06/04/22 22:40 06/04/22 22:40 06/04/22 22:31 06/04/22 22:30 06/04/22 22:29 06/04/22 22:20 06/04/22 22:13 06/04/22 22:13 06/04/22 22:00 06/04/22 22:00 06/04/22 21:50 06/04/22 21:40 06/04/22 21:30 06/04/22 21:30 06/04/22 21:20 06/04/22 21:10 06/05/22 03:27 97 Room Air 06/05/22 03:25 Room Air 06/05/22 03:25 Room Air 06/05/22 02:49 Room Air 06/05/22 00:37 Room Air Laboratory Results 06/05/22 06/05/22 06/05/22 Range/Units 11:39 08:09 06:07 WBC (4.8-10.8) K/ul RBC (3.93-5.22) M/uL Hgb (12.0-16.0) g/dl Hct (34.1-44.9) % MCV (80.0-100.0) fL MCH (25.0-34.0) pg MCHC (32.0-36.0) g/dL RDW Std Deviation (36.4-46.3) fL RDW Coeff of Chito (11.5-14.5) % Plt Count (130-400) K/uL MPV (9.4-12.3) fL Immature Gran % (Auto) % Neut % (Auto) % Lymph % (Auto) % Lipscomb % (Auto) % Eos % (Auto) % Baso % (Auto) % Neut # (Auto) (1.4-6.5) K/uL Lymph # (Auto) (1.2-3.4) K/uL [place]comb # (Auto) (0.24-0.82) K/uL Eos # (Auto) (0-0.50) K/uL Baso # (Auto) (0-0.2) K/uL Immature Gran # (Auto) (0.00-0.02) K/uL PT (9.0-12.0) Seconds INR (0.9-1.1) APTT (21.0-31.0) Seconds PTT Ratio Sodium (136-145) mmol/L Potassium (3.5-5.1) mmol/L Chloride (98-107) mmol/L Carbon Dioxide (21-32) mmol/L Anion Gap (3-11) BUN (6-23) mg/dl Creatinine (0.6-1.2) mg/dl Est Cr Clr Drug Dosing Est GFR ( Amer) ml/min Est GFR (Non-Af Amer) ml/min BUN/Creatinine Ratio (10-20) Glucose (70-99(Fasting)) mg/dl POC Glucose 150 H 114 H (70-99) mg/dl Estimat Average Glucose mg/dl Hemoglobin A1c (4.5-5.6) % Lactate (0.4-2.0) mmol/L Calcium (8.5-10.1) mg/dl Phosphorus (2.5-4.9) mg/dl Magnesium (1.7-2.4) mg/dl Total Bilirubin (0.2-1.0) mg/dl AST (13-39) U/L ALT (7-52) U/L Alkaline Phosphatase (34-104) U/L Troponin I High Sens 37.5 H D (0-14) pg/ml Total Protein (6.0-8.3) gm/dl Albumin (3.4-5.0) gm/dl Globulin (2.5-4.0) gm/dl Albumin/Globulin Ratio (0.9-2) Procalcitonin (0-0.5) ng/ml Urine Color Urine Appearance (Clear) Urine pH (4.5-7.5) Ur Specific [place] (1.000-1.030) Urine Protein (Negative) Urine Glucose (UA) (Negative) Urine Ketones (Negative) Urine Blood (Negative) Urine Nitrite (Negative) Urine Bilirubin (Negative) Urine Urobilinogen (Negative) Ur Leukocyte Esterase (Negative) Urine WBC (Auto) (0-5) /hpf Urine RBC (Auto) (0-4) /hpf U Hyaline Cast (Auto) (0-5) /lpf U Epithel Cells (Auto) (0-5) /lpf Urine Bacteria (Auto) (Negative) Lyme Disease IgG Ab (Negative) Lyme Disease IgM Ab (Negative) SARS-CoV-2 (PCR) (Negative) Enterobacterales (PCR) (NotDetected) E. coli (PCR) (NotDetected) mcr-1 Colistin Res Gene PCR (NotDetected) blaIMP Car res Gene PCR (NotDetected) KPC-Carbap Res Gene PCR (NotDetected) blaNDM Car Res Gene PCR (NotDetected) OXA-48 Carbapenem Resis Gene (PCR) (NotDetected) blaVIM Car Res Gene PCR (NotDetected) CTX-M Gene Resistance (PCR) (NotDetected) Bld Cult ID Panel PCR (NotDetected) 06/05/22 06/05/22 06/05/22 Range/Units 06:07 06:07 06:07 WBC 11.79 H (4.8-10.8) K/ul RBC 3.41 L (3.93-5.22) M/uL Hgb 9.8 L (12.0-16.0) g/dl Hct 30.9 L (34.1-44.9) % MCV 90.6 (80.0-100.0) fL MCH 28.7 (25.0-34.0) pg MCHC 31.7 L (32.0-36.0) g/dL RDW Std Deviation 48.8 H (36.4-46.3) fL RDW Coeff of Chito 14.6 H (11.5-14.5) % Plt Count 294 (130-400) K/uL MPV 9.6 (9.4-12.3) fL Immature Gran % (Auto) 0.6 % Neut % (Auto) 76.5 % Lymph % (Auto) 10.9 % Lipscomb % (Auto) 11.6 % Eos % (Auto) 0.1 % Baso % (Auto) 0.3 % Neut # (Auto) 9.02 H (1.4-6.5) K/uL Lymph # (Auto) 1.28 (1.2-3.4) K/uL Lipscomb # (Auto) 1.37 H (0.24-0.82) K/uL Eos # (Auto) 0.01 (0-0.50) K/uL Baso # (Auto) 0.04 (0-0.2) K/uL Immature Gran # (Auto) 0.07 H (0.00-0.02) K/uL PT (9.0-12.0) Seconds INR (0.9-1.1) APTT (21.0-31.0) Seconds PTT Ratio Sodium 141 (136-145) mmol/L Potassium 3.2 L (3.5-5.1) mmol/L Chloride 110 H (98-107) mmol/L Carbon Dioxide 20 L (21-32) mmol/L Anion Gap 11 (3-11) BUN 21 (6-23) mg/dl Creatinine 1.05 (0.6-1.2) mg/dl Est Cr Clr Drug Dosing 38.8 Est GFR ( Amer) 56.5 ml/min Est GFR (Non-Af Amer) 48.7 ml/min BUN/Creatinine Ratio 20.0 (10-20) Glucose 122 H (70-99(Fasting)) mg/dl POC Glucose (70-99) mg/dl Estimat Average Glucose 143 mg/dl Hemoglobin A1c 6.6 H (4.5-5.6) % Lactate (0.4-2.0) mmol/L Calcium 8.3 L (8.5-10.1) mg/dl Phosphorus 3.8 D (2.5-4.9) mg/dl Magnesium 2.2 (1.7-2.4) mg/dl Total Bilirubin (0.2-1.0) mg/dl AST (13-39) U/L ALT (7-52) U/L Alkaline Phosphatase (34-104) U/L Troponin I High Sens (0-14) pg/ml Total Protein (6.0-8.3) gm/dl Albumin (3.4-5.0) gm/dl Globulin (2.5-4.0) gm/dl Albumin/Globulin Ratio (0.9-2) Procalcitonin (0-0.5) ng/ml Urine Color Urine Appearance (Clear) Urine pH (4.5-7.5) Ur Specific [place] (1.000-1.030) Urine Protein (Negative) Urine Glucose (UA) (Negative) Urine Ketones (Negative) Urine Blood (Negative) Urine Nitrite (Negative) Urine Bilirubin (Negative) Urine Urobilinogen (Negative) Ur Leukocyte Esterase (Negative) Urine WBC (Auto) (0-5) /hpf Urine RBC (Auto) (0-4) /hpf U Hyaline Cast (Auto) (0-5) /lpf U Epithel Cells (Auto) (0-5) /lpf Urine Bacteria (Auto) (Negative) Lyme Disease IgG Ab (Negative) Lyme Disease IgM Ab (Negative) SARS-CoV-2 (PCR) (Negative) Enterobacterales (PCR) (NotDetected) E. coli (PCR) (NotDetected) mcr-1 Colistin Res Gene PCR (NotDetected) blaIMP Car res Gene PCR (NotDetected) KPC-Carbap Res Gene PCR (NotDetected) blaNDM Car Res Gene PCR (NotDetected) OXA-48 Carbapenem Resis Gene (PCR) (NotDetected) blaVIM Car Res Gene PCR (NotDetected) CTX-M Gene Resistance (PCR) (NotDetected) Bld Cult ID Panel PCR (NotDetected) 06/05/22 06/04/22 06/04/22 Range/Units 00:24 19:20 19:20 WBC (4.8-10.8) K/ul RBC (3.93-5.22) M/uL Hgb (12.0-16.0) g/dl Hct (34.1-44.9) % MCV (80.0-100.0) fL MCH (25.0-34.0) pg MCHC (32.0-36.0) g/dL RDW Std Deviation (36.4-46.3) fL RDW Coeff of Chito (11.5-14.5) % Plt Count (130-400) K/uL MPV (9.4-12.3) fL Immature Gran % (Auto) % Neut % (Auto) % Lymph % (Auto) % [place]comb % (Auto) % Eos % (Auto) % Baso % (Auto) % Neut # (Auto) (1.4-6.5) K/uL Lymph # (Auto) (1.2-3.4) K/uL [place]comb # (Auto) (0.24-0.82) K/uL Eos # (Auto) (0-0.50) K/uL Baso # (Auto) (0-0.2) K/uL Immature Gran # (Auto) (0.00-0.02) K/uL PT (9.0-12.0) Seconds INR (0.9-1.1) APTT (21.0-31.0) Seconds PTT Ratio Sodium (136-145) mmol/L Potassium (3.5-5.1) mmol/L Chloride (98-107) mmol/L Carbon Dioxide (21-32) mmol/L Anion Gap (3-11) BUN (6-23) mg/dl Creatinine (0.6-1.2) mg/dl Est Cr Clr Drug Dosing Est GFR ( Amer) ml/min Est GFR (Non-Af Amer) ml/min BUN/Creatinine Ratio (10-20) Glucose (70-99(Fasting)) mg/dl POC Glucose (70-99) mg/dl Estimat Average Glucose mg/dl Hemoglobin A1c (4.5-5.6) % Lactate (0.4-2.0) mmol/L Calcium (8.5-10.1) mg/dl Phosphorus (2.5-4.9) mg/dl Magnesium (1.7-2.4) mg/dl Total Bilirubin (0.2-1.0) mg/dl AST (13-39) U/L ALT (7-52) U/L Alkaline Phosphatase (34-104) U/L Troponin I High Sens 58.2 H* D (0-14) pg/ml Total Protein (6.0-8.3) gm/dl Albumin (3.4-5.0) gm/dl Globulin (2.5-4.0) gm/dl Albumin/Globulin Ratio (0.9-2) Procalcitonin (0-0.5) ng/ml Urine Color Yellow Urine Appearance Cloudy A (Clear) Urine pH 5.5 (4.5-7.5) Ur Specific [place] 1.012 (1.000-1.030) Urine Protein 3+ H (Negative) Urine Glucose (UA) Negative (Negative) Urine Ketones 1+ H (Negative) Urine Blood 2+ H (Negative) Urine Nitrite Positive A (Negative) Urine Bilirubin Negative (Negative) Urine Urobilinogen Negative (Negative) Ur Leukocyte Esterase 1+ H (Negative) Urine WBC (Auto) >30 H (0-5) /hpf Urine RBC (Auto) 0-4 (0-4) /hpf U Hyaline Cast (Auto) 1-5 (0-5) /lpf U Epithel Cells (Auto) 5-10 H (0-5) /lpf Urine Bacteria (Auto) 4+ H (Negative) Lyme Disease IgG Ab (Negative) Lyme Disease IgM Ab (Negative) SARS-CoV-2 (PCR) NEGATIVE (Negative) Enterobacterales (PCR) (NotDetected) E. coli (PCR) (NotDetected) mcr-1 Colistin Res Gene PCR (NotDetected) blaIMP Car res Gene PCR (NotDetected) KPC-Carbap Res Gene PCR (NotDetected) blaNDM Car Res Gene PCR (NotDetected) OXA-48 Carbapenem Resis Gene (PCR) (NotDetected) blaVIM Car Res Gene PCR (NotDetected) CTX-M Gene Resistance (PCR) (NotDetected) Bld Cult ID Panel PCR (NotDetected) 06/04/22 06/04/22 06/04/22 Range/Units 18:42 18:42 18:42 WBC (4.8-10.8) K/ul RBC (3.93-5.22) M/uL Hgb (12.0-16.0) g/dl Hct (34.1-44.9) % MCV (80.0-100.0) fL MCH (25.0-34.0) pg MCHC (32.0-36.0) g/dL RDW Std Deviation (36.4-46.3) fL RDW Coeff of Chito (11.5-14.5) % Plt Count (130-400) K/uL MPV (9.4-12.3) fL Immature Gran % (Auto) % Neut % (Auto) % Lymph % (Auto) % [place] % (Auto) % Eos % (Auto) % Baso % (Auto) % Neut # (Auto) (1.4-6.5) K/uL Lymph # (Auto) (1.2-3.4) K/uL [place] # (Auto) (0.24-0.82) K/uL Eos # (Auto) (0-0.50) K/uL Baso # (Auto) (0-0.2) K/uL Immature Gran # (Auto) (0.00-0.02) K/uL PT (9.0-12.0) Seconds INR (0.9-1.1) APTT (21.0-31.0) Seconds PTT Ratio Sodium (136-145) mmol/L Potassium (3.5-5.1) mmol/L Chloride (98-107) mmol/L Carbon Dioxide (21-32) mmol/L Anion Gap (3-11) BUN (6-23) mg/dl Creatinine (0.6-1.2) mg/dl Est Cr Clr Drug Dosing Est GFR ( Amer) ml/min Est GFR (Non-Af Amer) ml/min BUN/Creatinine Ratio (10-20) Glucose (70-99(Fasting)) mg/dl POC Glucose (70-99) mg/dl Estimat Average Glucose mg/dl Hemoglobin A1c (4.5-5.6) % Lactate 1.1 (0.4-2.0) mmol/L Calcium (8.5-10.1) mg/dl Phosphorus (2.5-4.9) mg/dl Magnesium (1.7-2.4) mg/dl Total Bilirubin (0.2-1.0) mg/dl AST (13-39) U/L ALT (7-52) U/L Alkaline Phosphatase (34-104) U/L Troponin I High Sens (0-14) pg/ml Total Protein (6.0-8.3) gm/dl Albumin (3.4-5.0) gm/dl Globulin (2.5-4.0) gm/dl Albumin/Globulin Ratio (0.9-2) Procalcitonin (0-0.5) ng/ml Urine Color Urine Appearance (Clear) Urine pH (4.5-7.5) Ur Specific [place] (1.000-1.030) Urine Protein (Negative) Urine Glucose (UA) (Negative) Urine Ketones (Negative) Urine Blood (Negative) Urine Nitrite (Negative) Urine Bilirubin (Negative) Urine Urobilinogen (Negative) Ur Leukocyte Esterase (Negative) Urine WBC (Auto) (0-5) /hpf Urine RBC (Auto) (0-4) /hpf U Hyaline Cast (Auto) (0-5) /lpf U Epithel Cells (Auto) (0-5) /lpf Urine Bacteria (Auto) (Negative) Lyme Disease IgG Ab Negative (Negative) Lyme Disease IgM Ab Negative (Negative) SARS-CoV-2 (PCR) (Negative) Enterobacterales (PCR) DETECTED A (NotDetected) E. coli (PCR) DETECTED A (NotDetected) mcr-1 Colistin Res Gene PCR Not Detected (NotDetected) blaIMP Car res Gene PCR Not Detected (NotDetected) KPC-Carbap Res Gene PCR Not Detected (NotDetected) blaNDM Car Res Gene PCR Not Detected (NotDetected) OXA-48 Carbapenem Resis Gene (PCR) Not Detected (NotDetected) blaVIM Car Res Gene PCR Not Detected (NotDetected) CTX-M Gene Resistance (PCR) Not Detected (NotDetected) Bld Cult ID Panel PCR See PCR Comment (NotDetected) 06/04/22 06/04/22 06/04/22 Range/Units 18:42 18:42 18:42 WBC 7.28 (4.8-10.8) K/ul RBC 3.96 (3.93-5.22) M/uL Hgb 11.4 L (12.0-16.0) g/dl Hct 35.2 (34.1-44.9) % MCV 88.9 (80.0-100.0) fL MCH 28.8 (25.0-34.0) pg MCHC 32.4 (32.0-36.0) g/dL RDW Std Deviation 46.1 (36.4-46.3) fL RDW Coeff of Chito 14.1 (11.5-14.5) % Plt Count 302 (130-400) K/uL MPV 9.7 (9.4-12.3) fL Immature Gran % (Auto) 1.1 % Neut % (Auto) 81.3 % Lymph % (Auto) 9.8 % [place]comb % (Auto) 7.0 % Eos % (Auto) 0.3 % Baso % (Auto) 0.5 % Neut # (Auto) 5.92 (1.4-6.5) K/uL Lymph # (Auto) 0.71 L (1.2-3.4) K/uL [place] # (Auto) 0.51 (0.24-0.82) K/uL Eos # (Auto) 0.02 (0-0.50) K/uL Baso # (Auto) 0.04 (0-0.2) K/uL Immature Gran # (Auto) 0.08 H (0.00-0.02) K/uL PT 11.3 (9.0-12.0) Seconds INR 1.1 (0.9-1.1) APTT 28.0 (21.0-31.0) Seconds PTT Ratio 1.0 Sodium (136-145) mmol/L Potassium (3.5-5.1) mmol/L Chloride (98-107) mmol/L Carbon Dioxide (21-32) mmol/L Anion Gap (3-11) BUN (6-23) mg/dl Creatinine (0.6-1.2) mg/dl Est Cr Clr Drug Dosing Est GFR ( Amer) ml/min Est GFR (Non-Af Amer) ml/min BUN/Creatinine Ratio (10-20) Glucose (70-99(Fasting)) mg/dl POC Glucose (70-99) mg/dl Estimat Average Glucose mg/dl Hemoglobin A1c (4.5-5.6) % Lactate (0.4-2.0) mmol/L Calcium (8.5-10.1) mg/dl Phosphorus (2.5-4.9) mg/dl Magnesium (1.7-2.4) mg/dl Total Bilirubin (0.2-1.0) mg/dl AST (13-39) U/L ALT (7-52) U/L Alkaline Phosphatase (34-104) U/L Troponin I High Sens (0-14) pg/ml Total Protein (6.0-8.3) gm/dl Albumin (3.4-5.0) gm/dl Globulin (2.5-4.0) gm/dl Albumin/Globulin Ratio (0.9-2) Procalcitonin 7.12 H (0-0.5) ng/ml Urine Color Urine Appearance (Clear) Urine pH (4.5-7.5) Ur Specific [place] (1.000-1.030) Urine Protein (Negative) Urine Glucose (UA) (Negative) Urine Ketones (Negative) Urine Blood (Negative) Urine Nitrite (Negative) Urine Bilirubin (Negative) Urine Urobilinogen (Negative) Ur Leukocyte Esterase (Negative) Urine WBC (Auto) (0-5) /hpf Urine RBC (Auto) (0-4) /hpf U Hyaline Cast (Auto) (0-5) /lpf U Epithel Cells (Auto) (0-5) /lpf Urine Bacteria (Auto) (Negative) Lyme Disease IgG Ab (Negative) Lyme Disease IgM Ab (Negative) SARS-CoV-2 (PCR) (Negative) Enterobacterales (PCR) (NotDetected) E. coli (PCR) (NotDetected) mcr-1 Colistin Res Gene PCR (NotDetected) blaIMP Car res Gene PCR (NotDetected) KPC-Carbap Res Gene PCR (NotDetected) blaNDM Car Res Gene PCR (NotDetected) OXA-48 Carbapenem Resis Gene (PCR) (NotDetected) blaVIM Car Res Gene PCR (NotDetected) CTX-M Gene Resistance (PCR) (NotDetected) Bld Cult ID Panel PCR (NotDetected) 06/04/22 Range/Units 18:42 WBC (4.8-10.8) K/ul RBC (3.93-5.22) M/uL Hgb (12.0-16.0) g/dl Hct (34.1-44.9) % MCV (80.0-100.0) fL MCH (25.0-34.0) pg MCHC (32.0-36.0) g/dL RDW Std Deviation (36.4-46.3) fL RDW Coeff of Chito (11.5-14.5) % Plt Count (130-400) K/uL MPV (9.4-12.3) fL Immature Gran % (Auto) % Neut % (Auto) % Lymph % (Auto) % [place]comb % (Auto) % Eos % (Auto) % Baso % (Auto) % Neut # (Auto) (1.4-6.5) K/uL Lymph # (Auto) (1.2-3.4) K/uL [place]comb # (Auto) (0.24-0.82) K/uL Eos # (Auto) (0-0.50) K/uL Baso # (Auto) (0-0.2) K/uL Immature Gran # (Auto) (0.00-0.02) K/uL PT (9.0-12.0) Seconds INR (0.9-1.1) APTT (21.0-31.0) Seconds PTT Ratio Sodium 136 (136-145) mmol/L Potassium 3.3 L (3.5-5.1) mmol/L Chloride 102 (98-107) mmol/L Carbon Dioxide 20 L (21-32) mmol/L Anion Gap 14 H (3-11) BUN 25 H (6-23) mg/dl Creatinine 1.28 H (0.6-1.2) mg/dl Est Cr Clr Drug Dosing Not Reportable Est GFR ( Amer) 44.5 ml/min Est GFR (Non-Af Amer) 38.4 ml/min BUN/Creatinine Ratio 19.5 (10-20) Glucose 130 H (70-99(Fasting)) mg/dl POC Glucose (70-99) mg/dl Estimat Average Glucose mg/dl Hemoglobin A1c (4.5-5.6) % Lactate (0.4-2.0) mmol/L Calcium 9.6 (8.5-10.1) mg/dl Phosphorus 2.2 L (2.5-4.9) mg/dl Magnesium 1.6 L (1.7-2.4) mg/dl Total Bilirubin 0.9 (0.2-1.0) mg/dl AST 30 (13-39) U/L ALT 19 (7-52) U/L Alkaline Phosphatase 80 (34-104) U/L Troponin I High Sens 36.1 H (0-14) pg/ml Total Protein 7.4 (6.0-8.3) gm/dl Albumin 4.0 (3.4-5.0) gm/dl Globulin 3.4 (2.5-4.0) gm/dl Albumin/Globulin Ratio 1.2 (0.9-2) Procalcitonin (0-0.5) ng/ml Urine Color Urine Appearance (Clear) Urine pH (4.5-7.5) Ur Specific [place] (1.000-1.030) Urine Protein (Negative) Urine Glucose (UA) (Negative) Urine Ketones (Negative) Urine Blood (Negative) Urine Nitrite (Negative) Urine Bilirubin (Negative) Urine Urobilinogen (Negative) Ur Leukocyte Esterase (Negative) Urine WBC (Auto) (0-5) /hpf Urine RBC (Auto) (0-4) /hpf U Hyaline Cast (Auto) (0-5) /lpf U Epithel Cells (Auto) (0-5) /lpf Urine Bacteria (Auto) (Negative) Lyme Disease IgG Ab (Negative) Lyme Disease IgM Ab (Negative) SARS-CoV-2 (PCR) (Negative) Enterobacterales (PCR) (NotDetected) E. coli (PCR) (NotDetected) mcr-1 Colistin Res Gene PCR (NotDetected) blaIMP Car res Gene PCR (NotDetected) KPC-Carbap Res Gene PCR (NotDetected) blaNDM Car Res Gene PCR (NotDetected) OXA-48 Carbapenem Resis Gene (PCR) (NotDetected) blaVIM Car Res Gene PCR (NotDetected) CTX-M Gene Resistance (PCR) (NotDetected) Bld Cult ID Panel PCR (NotDetected) Resident Activity Tracking Resident Involvement: Resident Care Provided Care Provided: Adult Hospital Medicine (1) Chronic kidney disease Chronic kidney disease stage: unspecified stage Qualified Code(s): N18.9 - Chronic kidney disease, unspecified (2) Sepsis Acute renal failure type: unspecified Sepsis acute organ dysfunction status: with acute organ dysfunction Sepsis type: sepsis due to unspecified organism Severe sepsis acute organ dysfunction type: acute renal failure Severe sepsis shock status: without septic shock Qualified Code(s): A41.9 - Sepsis, unspecified organism; R65.20 - Severe sepsis without septic shock; N17.9 - Acute kidney failure, unspecified
[2022-06-05] MEDS ORDERED: POTASSIUM CHLORIDE CRTAB 20 MEQ TABCR PO STA (10:29)
[2022-06-05] MEDS: SODIUM CHLORIDE 0.9% 1000ML 1,000 ML IV SCH (12:52)
--- NOTE | 2022-06-05 19:54 | Billing Data ---
Date of Service June 05, 2022 Coding Level of Care Code 39243 Subseq Hosp Care Lvl 3
[2022-06-05] MEDS ORDERED: cefTRIAXone SODIUM 2,000 MG in DEXTROSE 5% 50 ML IV SCH (20:00)
--- NOTE | 2022-06-05 20:28 | Billing Data ---
Date of Service June 05, 2022 Coding Level of Care Code 12376 Initial Inpt Care Lvl 3
--- NOTE | 2022-06-05 22:33 | Electrocardiogram Report ---
Test Reason : Blood Pressure : / mmHG Vent. Rate : 127 BPM Atrial Rate : 127 BPM P-R Int : 148 ms QRS Dur : 076 ms QT Int : 312 ms P-R-T Axes : 009 -22 018 degrees QTc Int : 453 ms Poor data quality, interpretation may be adversely affected Sinus tachycardia Possible Left atrial enlargement Left ventricular hypertrophy Abnormal ECG When compared with ECG of 25-JUL-2013 10:37, Vent. rate has increased BY 74 BPM Confirmed by Tremaine Zeng ([id number]) on 06/05/2022 10:33:44 PM Referred By: REFERRED SELF Confirmed By:Tremaine Zeng
[2022-06-06 05:35] LABS: Basophils # (auto) 0.05 K/uL (0-0.2); Basophils % (auto) 0.4 %; Eosinophils # (auto) 0.02 K/uL (0-0.50); Eosinophils % (auto) 0.2 %; Hematocrit (blood only) 29.7 % (34.1-44.9); Hemoglobin 9.8 g/dl (12.0-16.0); Immature Granulocytes # (auto) 0.05 K/uL (0.00-0.02); Immature Granulocytes % (auto) 0.4 %; Lymphocytes # (auto) 1.31 K/uL (1.2-3.4); Lymphocytes % (auto) 10.9 %; Mean Corpuscular Hemoglobin 29.1 pg (25.0-34.0); Mean Corpuscular Volume 88.1 fL (80.0-100.0); Mean Platelet Volume 10.3 fL (9.4-12.3); Monocytes # (auto) 1.48 K/uL (0.24-0.82); Monocytes % (auto) 12.3 %; Neutrophils # (auto) 9.13 K/uL (1.4-6.5); Neutrophils % (auto) 75.8 %; Platelet Count 278 K/uL (130-400); RDW Coefficient of Variation 14.5 % (11.5-14.5); RDW Standard Deviation 46.8 fL (36.4-46.3); Red Blood Count 3.37 M/uL (3.93-5.22); White Blood Count 12.04 K/ul (4.8-10.8)
[2022-06-06 06:11] LABS: BUN Creatinine Ratio 13.5 (10-20); Calcium 8.5 mg/dl (8.5-10.1); Creatinine Clr Calc Pharmacy 39.2 ml/min; Est GFR (African American) 57.1 ml/min; Est GFR (Non-African American) 49.3 ml/min; Magnesium 1.9 mg/dl (1.7-2.4)
[2022-06-06] MEDS ORDERED: POTASSIUM CHLORIDE CRTAB 20 MEQ TABCR PO STA (06:44)
[2022-06-06] MEDS: SODIUM CHLORIDE 0.9% 1000ML 1,000 ML IV SCH (08:40)
[2022-06-06] MEDS: ROSUVASTATIN CALCIUM 5 MG TAB PO SCH (08:41)
[2022-06-06] MEDS: PRAMIPEXOLE DIHYDROCHLO 0.25 MG TAB PO SCH ×2 (08:41→20:14)
[2022-06-06] MEDS: CHOLECALCIFEROL 1,000 UNITS 25 MCG TAB PO SCH (08:41)
[2022-06-06] MEDS: CALCIUM 600MG + VIT D 400 IU TAB PO SCH (08:42)
[2022-06-06] MEDS: POTASSIUM CHLORIDE 10 MEQ TABCR PO SCH (08:42)
[2022-06-06] MEDS: HEPARIN SOD 5,000 UNIT/0.5 ML VIAL SQ SCH ×2 (08:43→20:16)
[2022-06-06] MEDS: METOPROLOL TARTRATE 50 MG TAB PO SCH ×2 (08:43→20:14)
[2022-06-06] MEDS: ASPIRIN 81 MG ECTAB PO SCH (08:49)
[2022-06-06] MEDS: INSULIN ASPART PER UNIT SC SCH ×4 (09:00→22:14)
--- NOTE | 2022-06-06 13:00 | Hospitalist Progress Note ---
Date of Service June 06, 2022 Assessment & Plan (1) Sepsis: Plan: Patient is an 86-year-old female with past medical history of CKD, hyperlipidemia, diabetes, hypertension, gout, lower extremity edema, restless legs admitted for urinary tract infection. Sepsis likely secondary to urinary tract infection Patient meeting SIRS criteria due to tachycardia, tachypnea, fever om admission; vital signs stable today afebrile, HR 60-80s, BP= 158/63 - Positive blood culture in both tubes:gram - bacilli - Urine culture also growing E coli, resistant to Rocephin, will switch to Ertapenem 1g q24 Pro-Juan elevated to 7.12, UA consistent with likely infection NSS 1 L bolus x3 in ED, plus an additional 1L given at 100ml/hr - Improving clinically, tolerating oral intake, plan to stop maintenance fluids Acetaminophen as needed for fevers Monitor daily CBC Elevated troponin Mild elevation to 36.1, peaked at 58.2 and now trending down. Most recent 37.5 Likely demand, no chest pain or cardiac complaints Electrolyte disturbances Potassium= 3.0, replete: gave 60meq this morning in admission to her 10meq she receives daily Mg and phosphorus were low on admission- were repleted. Continue to monitor CKD Creatinine on admission= 1.28, down to 1.04 with IV fluids Likely due to dehydration in the setting of infection Avoid nephrotoxins Hold Lasix at this time Leg edema Hold home Lasix as above Diabetes Hold home glipizide Sliding scale while admitted Hypertension Continue metoprolol tartrate 50 mg p.o. twice daily Hyperlipidemia Continue rosuvastatin 5 mg p.o. daily Restless legs Continue home pramipexole DVT prophylaxis: Heparin SQ Diet: Heart healthy, DM 2 Dispo: Admit to med telemetry CODE STATUS: Full (2) UTI (urinary tract infection): (3) Chronic kidney disease: (4) Hyperlipidemia: (5) Diabetes: (6) Hypertension: Admission and Anticipated Discharge Date Admission Date: June 04, 2022 Supervising Physician Co-Signing Physician Notes I personally examined the patient and verified all matthews points of history and exam, discussed case, and agree with decision making with Dr Preston. Malaise and rigors persistsbut less intense, less long-lasting, and less often. Vitals noted, in general she is fatigued but less ill-appearing, and in no distress. HEENT normocephalic atraumatic mucous membranes moist. Breathing unlabored no accessory muscle use good effort. Skin shows no rashes no pallor or icterus. Neuro without focal deficits. SepsisUTI with subsequent gram-negative bacteremiacultures yielded ESBL, and resistant to ceftriaxonewhich was surprising given her clinical improvement and spite of ceftriaxone treatment. That said, changing to ertapenem, continue supportive care otherwise. Melena by historyabdominal exam benign vitals good, last colonoscopy within the last few yearsno complaints of this today, and her hemoglobin is now stable, follow clinically and follow Hgb, otherwise outpatient follow-up DVT proph heparin SQ Subjective 86 year old female with a past medical history of CKD, HLD, diabetes, HTN, gout, LE edema, restless leg syndrome that presents with bacteremia secondary to UTI. She was resting comfortably this morning. No longer having chills. Urinary frequency has decreased. Denies nausea, vomiting, chest pain, dyspnea, abdominal/flank pain, hematuria, dysuria. Physical Exam Physical Exam: Constitutional: well-appearing, no acute distress HEENT: NCAT, no conjunctival injection CV: regular rhythm, no murmur appreciated, extremities well-perfused, no LE edema Resp: CTABL, no wheezes/rales/rhonchi appreciated, no increased work of breathing GI: soft, nondistended, nontender, BS normoactive, no CVA tenderness MSK: no gross deformities appreciated Skin: warm, dry, no rash appreciated Neuro: alert, oriented, no focal neurologic deficit appreciated Results & Data Results & Data ([facility]) Vital Signs (Past 12 Hours) Vital Signs Temp Pulse Resp BP BP Pulse Ox O2 Del Method 06/06/22 11:15 Room Air 06/06/22 11:00 36.7 C 76 18 155/68 H 97 Room Air 06/06/22 08:50 80 18 145/72 H 98 Room Air 06/06/22 07:00 58 L 16 95 Room Air 06/06/22 07:00 95 Room Air 06/06/22 05:00 90 06/06/22 04:30 93 06/06/22 04:30 119/47 L 06/06/22 04:00 91 06/06/22 04:00 121/52 L 06/06/22 03:30 93 06/06/22 03:30 121/49 L 06/06/22 03:00 90 06/06/22 03:00 120/47 L 06/06/22 02:30 16 122/50 L 94 Room Air 06/06/22 02:00 11 L 139/64 94 Room Air 06/06/22 01:53 139/62 93 Room Air 06/06/22 01:56 37.1 C 64 24 139/62 93 Room Air Laboratory Results 06/06/22 06/06/22 06/06/22 Range/Units 11:58 08:39 05:07 WBC (4.8-10.8) K/ul RBC (3.93-5.22) M/uL Hgb (12.0-16.0) g/dl Hct (34.1-44.9) % MCV (80.0-100.0) fL MCH (25.0-34.0) pg MCHC (32.0-36.0) g/dL RDW Std Deviation (36.4-46.3) fL RDW Coeff of Chito (11.5-14.5) % Plt Count (130-400) K/uL MPV (9.4-12.3) fL Immature Gran % (Auto) % Neut % (Auto) % Lymph % (Auto) % Carver % (Auto) % Eos % (Auto) % Baso % (Auto) % Neut # (Auto) (1.4-6.5) K/uL Lymph # (Auto) (1.2-3.4) K/uL Carver # (Auto) (0.24-0.82) K/uL Eos # (Auto) (0-0.50) K/uL Baso # (Auto) (0-0.2) K/uL Immature Gran # (Auto) (0.00-0.02) K/uL Sodium 137 (136-145) mmol/L Potassium 3.0 L (3.5-5.1) mmol/L Chloride 107 (98-107) mmol/L Carbon Dioxide 18 L (21-32) mmol/L Anion Gap 12 H (3-11) BUN 14 (6-23) mg/dl Creatinine 1.04 (0.6-1.2) mg/dl Est Cr Clr Drug Dosing 39.2 ml/min Est GFR ( Amer) 57.1 ml/min Est GFR (Non-Af Amer) 49.3 ml/min BUN/Creatinine Ratio 13.5 (10-20) Glucose 103 H (70-99(Fasting)) mg/dl POC Glucose 135 H 90 (70-99) mg/dl Calcium 8.5 (8.5-10.1) mg/dl Magnesium 1.9 (1.7-2.4) mg/dl 06/06/22 06/05/22 06/05/22 Range/Units 05:07 21:48 16:33 WBC 12.04 H (4.8-10.8) K/ul RBC 3.37 L (3.93-5.22) M/uL Hgb 9.8 L (12.0-16.0) g/dl Hct 29.7 L (34.1-44.9) % MCV 88.1 (80.0-100.0) fL MCH 29.1 (25.0-34.0) pg MCHC 33.0 (32.0-36.0) g/dL RDW Std Deviation 46.8 H (36.4-46.3) fL RDW Coeff of Chito 14.5 (11.5-14.5) % Plt Count 278 (130-400) K/uL MPV 10.3 (9.4-12.3) fL Immature Gran % (Auto) 0.4 % Neut % (Auto) 75.8 % Lymph % (Auto) 10.9 % Carver % (Auto) 12.3 % Eos % (Auto) 0.2 % Baso % (Auto) 0.4 % Neut # (Auto) 9.13 H (1.4-6.5) K/uL Lymph # (Auto) 1.31 (1.2-3.4) K/uL Carver # (Auto) 1.48 H (0.24-0.82) K/uL Eos # (Auto) 0.02 (0-0.50) K/uL Baso # (Auto) 0.05 (0-0.2) K/uL Immature Gran # (Auto) 0.05 H (0.00-0.02) K/uL Sodium (136-145) mmol/L Potassium (3.5-5.1) mmol/L Chloride (98-107) mmol/L Carbon Dioxide (21-32) mmol/L Anion Gap (3-11) BUN (6-23) mg/dl Creatinine (0.6-1.2) mg/dl Est Cr Clr Drug Dosing ml/min Est GFR ( Amer) ml/min Est GFR (Non-Af Amer) ml/min BUN/Creatinine Ratio (10-20) Glucose (70-99(Fasting)) mg/dl POC Glucose 96 93 (70-99) mg/dl Calcium (8.5-10.1) mg/dl Magnesium (1.7-2.4) mg/dl Resident Activity Tracking Resident Involvement: Resident Care Provided Care Provided: Adult Hospital Medicine (1) Chronic kidney disease Chronic kidney disease stage: unspecified stage Qualified Code(s): N18.9 - Chronic kidney disease, unspecified (2) Sepsis Acute renal failure type: unspecified Sepsis acute organ dysfunction status: with acute organ dysfunction Sepsis type: sepsis due to unspecified organism Severe sepsis acute organ dysfunction type: acute renal failure Severe sepsis shock status: without septic shock Qualified Code(s): A41.9 - Sepsis, unspecified organism; R65.20 - Severe sepsis without septic shock; N17.9 - Acute kidney failure, unspecified
[2022-06-06] MEDS: ERTAPENEM SODIUM 1,000 MG in SYRINGE 0 ML IV SCH (14:21)
--- NOTE | 2022-06-06 17:51 | Billing Data ---
Date of Service June 06, 2022 Coding Level of Care Code 05457 Subseq Hosp Care Lvl 3
--- NOTE | 2022-06-06 17:51 | Billing Data ---
Date of Service June 06, 2022 Coding Level of Care Code 07605 Subseq Hosp Care Lvl 3
[2022-06-07 06:30] LABS: Basophils # (auto) 0.04 K/uL (0-0.2); Basophils % (auto) 0.6 %; Eosinophils % (auto) 1.4 %; Hematocrit (blood only) 29.2 % (34.1-44.9); Hemoglobin 9.5 g/dl (12.0-16.0); Immature Granulocytes # (auto) 0.07 K/uL (0.00-0.02); Lymphocytes % (auto) 16.7 %; Mean Corpuscular Hemoglobin 28.4 pg (25.0-34.0); Mean Corpuscular Hgb Conc 32.5 g/dL (32.0-36.0); Mean Corpuscular Volume 87.4 fL (80.0-100.0); Mean Platelet Volume 9.9 fL (9.4-12.3); Monocytes # (auto) 1.13 K/uL (0.24-0.82); Monocytes % (auto) 15.8 %; Neutrophils # (auto) 4.63 K/uL (1.4-6.5); Neutrophils % (auto) 64.5 %; Platelet Count 287 K/uL (130-400); RDW Coefficient of Variation 14.5 % (11.5-14.5); RDW Standard Deviation 46.3 fL (36.4-46.3); Red Blood Count 3.34 M/uL (3.93-5.22); White Blood Count 7.17 K/ul (4.8-10.8)
[2022-06-07 06:55] LABS: BUN Creatinine Ratio 14.7 (10-20); Calcium 8.8 mg/dl (8.5-10.1); Creatinine Clr Calc Pharmacy 42.9 ml/min; Est GFR (African American) 63.7 ml/min; Magnesium 1.7 mg/dl (1.7-2.4); Potassium 3.1 mmol/L (3.5-5.1)
--- NOTE | 2022-06-07 07:04 | Hospitalist Progress Note ---
Date of Service June 07, 2022 Assessment & Plan (1) Sepsis: Plan: Pt is an 86 yo female with past medical history of CKD, hyperlipidemia, diabetes, hypertension, gout, lower extremity edema, restless legs admitted for UTI. Bacteremia likely secondary to UTI + SIRS criteria on admission - Blood cx E.coli x 2 - Urine culture also growing E coli, resistant to Rocephin, switched to ertapenem 1g q24 yesterday (x7 days) - Received second dose of ertapenem at 13:39 today Significant urinary frequency last night. Never had it before admission. anticipate improvement with continued abx. Acetaminophen as needed for fevers Monitor daily CBC Demand ischemia in the setting of suspected sepsis, UTI, and dehydration Mild elevation to 36.1, peaked at 58.2 and now trending down. Most recent 37.5 no chest pain or cardiac complaints - stable Electrolyte disturbances Potassium= 3.1, replete: gave 40meq this morning in addition to her 10meq she receives daily Mg and phosphorus were low on admission- were repleted. Stable today. Continue to monitor CKD Creatinine on admission= 1.28, down to 0.95 today Likely due to dehydration in the setting of infection Avoid nephrotoxins Hold Lasix at this time Leg edema - stable - Hold home Lasix as above Diabetes Hold home glipizide Sliding scale while admitted Hypertension Continue metoprolol tartrate 50 mg PO twice daily Hyperlipidemia Continue rosuvastatin 5 mg PO daily Restless legs Continue home pramipexole DVT prophylaxis: Heparin SQ Diet: Heart healthy, DM 2 Dispo: Med telemetry, consider d/c tomorrow. will need to arrange IV abx at home. CODE STATUS: Full (2) UTI (urinary tract infection): (3) Chronic kidney disease: (4) Hyperlipidemia: (5) Diabetes: (6) Hypertension: Admission and Anticipated Discharge Date Admission Date: June 04, 2022 Supervising Physician Co-Signing Physician Notes Resident Physician Supervision Note: I independently interviewed and examined the patient and verified the matthews history and physical, reviewed labs and image studies and agree with resident Dr. Trimble findings and care plan. Subjective Pt is an 86 yo female with a PMH of CKD, HLD, diabetes, HTN, gout, LE edema, restless leg syndrome that presents with bacteremia most likely secondary to UTI. 06/07/2022: Pt feeling well this morning but not "back to her normal self." No longer having chills as bad as before but they still occur infrequently. Urinary frequency had decreased over the last two days but last night it seemed to increase again. She went to the bathroom 9-10x overnight. She never had issues w ith urinary frequency before this infection. She denies nausea, vomiting, chest pain, dyspnea, abdominal/flank pain, hematuria, dysuria. Physical Exam Constitutional: NAD, afebrile, vitals WNL Respiratory: CTA bilaterally. no rhonchi, rales, or crackles. No increased work of breathing Cardiovascular: RRR. No murmurs. Normal S1 and S2. No LL edema. Gastrointestinal (Abdomen): Nontender, + BS. No masses noted. Results & Data Results & Data ([facility]) Vital Signs (Past 12 Hours) Vital Signs Temp Pulse Pulse Resp BP BP Pulse Ox 06/07/22 01:49 36.8 C 71 20 131/57 L 93 06/07/22 00:34 59 L 06/06/22 22:59 36.8 C 69 20 125/68 95 06/06/22 19:21 37.4 C 74 18 137/70 91 O2 Del Method 06/07/22 01:49 Room Air 06/07/22 00:34 06/06/22 22:59 Room Air 06/06/22 19:21 Room Air Resident Activity Tracking Resident Involvement: Resident Care Provided Care Provided: Adult Hospital Medicine (1) Chronic kidney disease Chronic kidney disease stage: unspecified stage Qualified Code(s): N18.9 - Chronic kidney disease, unspecified (2) Sepsis Acute renal failure type: unspecified Sepsis acute organ dysfunction status: with acute organ dysfunction Sepsis type: sepsis due to unspecified organism Severe sepsis acute organ dysfunction type: acute renal failure Severe sepsis shock status: without septic shock Qualified Code(s): A41.9 - Sepsis, unspecified organism; R65.20 - Severe sepsis without septic shock; N17.9 - Acute kidney failure, unspecified
[2022-06-07] MEDS ORDERED: POTASSIUM CHLORIDE CRTAB 20 MEQ TABCR PO STA (07:07)
[2022-06-07] MEDS: ASPIRIN 81 MG ECTAB PO SCH (09:06)
[2022-06-07] MEDS: CHOLECALCIFEROL 1,000 UNITS 25 MCG TAB PO SCH (09:06)
[2022-06-07] MEDS: ROSUVASTATIN CALCIUM 5 MG TAB PO SCH (09:06)
[2022-06-07] MEDS: PRAMIPEXOLE DIHYDROCHLO 0.25 MG TAB PO SCH ×2 (09:07→22:09)
[2022-06-07] MEDS: CALCIUM 600MG + VIT D 400 IU TAB PO SCH (09:07)
[2022-06-07] MEDS: METOPROLOL TARTRATE 50 MG TAB PO SCH ×2 (09:07→22:09)
[2022-06-07] MEDS: INSULIN ASPART PER UNIT SC SCH ×4 (09:13→22:19)
[2022-06-07] MEDS: POTASSIUM CHLORIDE 10 MEQ TABCR PO SCH (09:13)
[2022-06-07] MEDS: HEPARIN SOD 5,000 UNIT/0.5 ML VIAL SQ SCH ×2 (10:10→22:10)
[2022-06-07] MEDS: ERTAPENEM SODIUM 1,000 MG in SYRINGE 0 ML IV SCH (13:39)
--- NOTE | 2022-06-08 07:32 | Hospitalist Progress Note ---
Date of Service June 08, 2022 Assessment & Plan (1) Sepsis: Plan: Pt is an 86 yo female with past medical history of CKD, hyperlipidemia, diabetes, hypertension, gout, lower extremity edema, restless legs admitted for UTI. Bacteremia secondary to UTI + SIRS criteria on admission - Blood cx E.coli x 2 - Urine culture also growing E coli, resistant to Rocephin, switched to ertapenem 1g q24 (x7 days) - Received third dose of ertapenem today, plan for 4th dose tomorrow before discharge Improved urinary frequency from previous night, no remaining urinary symptoms Acetaminophen as needed for fevers - ABX set up for outpatient administration x3 days through peripheral site at [facility] CKD Cr on admission: 1.28 - Cr 1.07 today (baseline) Hold Lasix at this time Electrolyte disturbances Potassium repleted previous 2 days - Potassium= 3.9 today. No repletion necessary. Mg and phosphorus were low on admission- were repleted. Stable today. Continue to monitor Demand ischemia in the setting of suspected sepsis, UTI, and dehydration Mild elevation to 36.1, peaked at 58.2 and now trending down. Most recent 37.5 no chest pain or cardiac complaints - stable Leg edema - stable - Hold home Lasix as above Diabetes Hold home glipizide Sliding scale while admitted Hypertension Continue metoprolol tartrate 50 mg PO twice daily Hyperlipidemia Continue rosuvastatin 5 mg PO daily Restless legs Continue home pramipexole DVT prophylaxis: Heparin SQ Diet: Heart healthy, DM 2 Dispo: Med telemetry, plan to d/c home tomorrow. Arranging for IV abx at [facility]. CODE STATUS: Full (2) UTI (urinary tract infection): (3) Chronic kidney disease: (4) Hyperlipidemia: (5) Diabetes: (6) Hypertension: Admission and Anticipated Discharge Date Admission Date: June 04, 2022 Supervising Physician Co-Signing Physician Notes Resident Physician Supervision Note: I independently interviewed and examined the patient and verified the matthews history and physical, reviewed labs and image studies and agree with resident Dr. Trimble findings and care plan. Subjective Pt is an 86 yo female with a PMH of CKD, HLD, diabetes, HTN, gout, LE edema, restless leg syndrome that presents with bacteremia most likely secondary to UTI. 06/07/2022: Pt feeling well this morning but not "back to her normal self." No longer having chills as bad as before but they still occur infrequently. Urinary frequency had decreased over the last two days but last night it seemed to increase again. She went to the bathroom 9-10x overnight. She never had issues with urinary frequency before this infection. She denies nausea, vomiting, chest pain, dyspnea, abdominal/flank pain, hematuria, and dysuria. 06/08/2022: Pt feeling better this morning. She did not have as many overnight bathroom trips as the night before. No more fevers or chills. She denies nausea, vomiting, chest pain, dyspnea, abdominal/flank pain, hematuria, and dysuria. Pt is eager to go home but she does not have a ride today as her is home waiting for a repair man and he will be unable to pick her up. She agrees with discharge tomorrow. Physical Exam Constitutional: NAD, afebrile. Vitals WNL. Respiratory: CTA, no rhonchi, rales, or wheezing. No increased work of breathing. Cardiovascular: RRR. No murmur noted. Normal S1 and S2. Gastrointestinal (Abdomen): Nontender, +BS. No masses noted. Results & Data Results & Data ([facility]) Vital Signs (Past 12 Hours) Vital Signs Temp Pulse Pulse Resp BP Pulse Ox O2 Del Method 06/08/22 07:06 58 L 06/08/22 03:50 37.0 C 65 18 129/56 L 96 Room Air 06/07/22 23:59 88 06/07/22 22:08 36.8 C 84 20 131/69 96 Resident Activity Tracking Resident Involvement: Resident Care Provided Care Provided: Adult Hospital Medicine (1) Chronic kidney disease Chronic kidney disease stage: unspecified stage Qualified Code(s): N18.9 - Chronic kidney disease, unspecified (2) Sepsis Acute renal failure type: unspecified Sepsis acute organ dysfunction status: with acute organ dysfunction Sepsis type: sepsis due to unspecified organism Severe sepsis acute organ dysfunction type: acute renal failure Severe sepsis shock status: without septic shock Qualified Code(s): A41.9 - Sepsis, unspecified organism; R65.20 - Severe sepsis without septic shock; N17.9 - Acute kidney failure, unspecified
[2022-06-08] MEDS: INSULIN ASPART PER UNIT SC SCH ×4 (08:33→21:17)
[2022-06-08] MEDS: HEPARIN SOD 5,000 UNIT/0.5 ML VIAL SQ SCH ×2 (08:34→21:40)
[2022-06-08] MEDS: ASPIRIN 81 MG ECTAB PO SCH (08:35)
[2022-06-08] MEDS: METOPROLOL TARTRATE 50 MG TAB PO SCH ×2 (08:35→21:39)
[2022-06-08] MEDS: PRAMIPEXOLE DIHYDROCHLO 0.25 MG TAB PO SCH ×2 (08:36→21:39)
[2022-06-08] MEDS: CHOLECALCIFEROL 1,000 UNITS 25 MCG TAB PO SCH (08:36)
[2022-06-08] MEDS: ROSUVASTATIN CALCIUM 5 MG TAB PO SCH (08:36)
[2022-06-08] MEDS: CALCIUM 600MG + VIT D 400 IU TAB PO SCH (08:37)
[2022-06-08] MEDS: POTASSIUM CHLORIDE 10 MEQ TABCR PO SCH (08:45)
[2022-06-08 11:09] LABS: Basophils # (auto) 0.03 K/uL (0-0.2); Basophils % (auto) 0.5 %; Eosinophils # (auto) 0.11 K/uL (0-0.50); Eosinophils % (auto) 1.8 %; Hematocrit (blood only) 31.9 % (34.1-44.9); Hemoglobin 10.4 g/dl (12.0-16.0); Immature Granulocytes # (auto) 0.06 K/uL (0.00-0.02); Lymphocytes # (auto) 1.22 K/uL (1.2-3.4); Lymphocytes % (auto) 20.1 %; Mean Corpuscular Hemoglobin 28.4 pg (25.0-34.0); Mean Corpuscular Hgb Conc 32.6 g/dL (32.0-36.0); Mean Corpuscular Volume 87.2 fL (80.0-100.0); Mean Platelet Volume 9.8 fL (9.4-12.3); Monocytes # (auto) 0.75 K/uL (0.24-0.82); Monocytes % (auto) 12.4 %; Neutrophils % (auto) 64.2 %; Platelet Count 368 K/uL (130-400); RDW Coefficient of Variation 14.3 % (11.5-14.5); RDW Standard Deviation 45.8 fL (36.4-46.3); Red Blood Count 3.66 M/uL (3.93-5.22); White Blood Count 6.07 K/ul (4.8-10.8)
[2022-06-08 11:41] LABS: BUN Creatinine Ratio 16.8 (10-20); Calcium 9.3 mg/dl (8.5-10.1); Creatinine Clr Calc Pharmacy 38.1 ml/min; Est GFR (African American) 55.2 ml/min; Est GFR (Non-African American) 47.6 ml/min; Potassium 3.9 mmol/L (3.5-5.1)
[2022-06-08] MEDS: ERTAPENEM SODIUM 1,000 MG in SYRINGE 0 ML IV SCH (12:17)
[2022-06-09 06:54] LABS: Hematocrit (blood only) 31.9 % (34.1-44.9); Hemoglobin 10.3 g/dl (12.0-16.0); Mean Corpuscular Hemoglobin 28.8 pg (25.0-34.0); Mean Corpuscular Hgb Conc 32.3 g/dL (32.0-36.0); Mean Corpuscular Volume 89.1 fL (80.0-100.0); Mean Platelet Volume 9.9 fL (9.4-12.3); Platelet Count 384 K/uL (130-400); RDW Coefficient of Variation 14.3 % (11.5-14.5); RDW Standard Deviation 46.7 fL (36.4-46.3); Red Blood Count 3.58 M/uL (3.93-5.22); White Blood Count 6.54 K/ul (4.8-10.8)
[2022-06-09 07:26] LABS: BUN Creatinine Ratio 18.8 (10-20); Calcium 9.3 mg/dl (8.5-10.1); Creatinine Clr Calc Pharmacy 42.4 ml/min; Est GFR (African American) 62.9 ml/min; Est GFR (Non-African American) 54.3 ml/min; Potassium 4.1 mmol/L (3.5-5.1)
--- NOTE | 2022-06-09 07:44 | Discharge Summary ---
Date of Service June 09, 2022 Admission HPI Per Admitting Provider Patient is an 86-year-old female with past medical history of CKD, hyperlipidemia, diabetes, hypertension, gout, lower extremity edema, restless legs who presents today for generalized malaise of several days duration. She states that she felt tired, somewhat weak, and had chills. Also reported some bilateral leg muscle aches. When asked about urinary symptoms, she states that she had been urinating more often but had thought nothing of it. Of note, the patient incidentally found out in her 70s that she had been born with only 1 kidney. Upon arrival to the ED, patient was found to be tachycardic, tachypneic, and febrile. She was given normal saline 1 L bolus x3 and acetaminophen 1000 mg IV x1. Work-up significant for procalcitonin of 7.12, potassium 3.3, Phos 2.2, mag 1.6, mild creatinine elevation to 1.28 with BUN of 25, mild high-sensitivity troponin elevation of 36.1. UA showing cloudy appearance, 3+ protein, 1+ ketones, 2+ blood, positive nitrites, 1+ leuk esterase, 4+ bacteria. Chest x-ray showing no acute process. After UA, patient administered ceftriaxone 2 g x 1. At the time of my evaluation, patient is resting comfortably with well- controlled blood pressure, tachycardia and tachypnea resolved Still feels somewhat chilly, but denies nausea, vomiting, chest pain, palpitations, shortness of breath, headache, dizziness, neuro deficits. Principal Diagnosis sepsis secondary to UTI Discharge Exam Constitutional NAD, afebrile, vitals WNL Respiratory CTA bilaterally. No rhonchi, rales, or wheezing. No increased work of breathing. Cardiovascular RRR. No murmur noted. Gastrointestinal (Abdomen) Non tender, +BS. No masses noted. Musculoskeletal Right great toe tender to palpation and PROM. Restricted AROM. Minimal swelling compared to left toe. No skin changes. Discharge Data Allergies Allergy/AdvReac Type Severity Reaction Status Date / Time No Known Allergies Allergy Verified 06/04/22 18:22 Consultations 06/04/22 20:57 ED Decision to Admit Stat Hospital Course (1) Sepsis: Pt is an 86 yo female with past medical history of CKD, hyperlipidemia, d iabetes, hypertension, gout, lower extremity edema, restless legs who was admitted for UTI. Bacteremia secondary to UTI + SIRS criteria on admission - Blood cx E.coli x 2 - Urine cx with E coli, resistant to Rocephin, switched to ertapenem 1g q24 (x7 days) - Received 4th dose of ertapenem today before discharge, plan for 3 doses at [facility] outpatient - per IV team, pt will not go home with IV but a new one will be started at [facility] tomorrow and left in for the duration of her treatment Pain of right great toe - gout - Chart says hx of gout but pt does not recall and previous flare ups - Pt Cr 0.96 today, eGFR= 54.3- not a good candidate for NSAID treatment - Avoidance of steroids d/t DM and recent infection - Will send pt home with colchicine 0.6 mg BID for 2-3 days after the flare resolves - Also given Voltaren gel to use PRN up to 4x per day CKD Cr on admission: 1.28 Held Lasix during admission d/t elevation - Cr 0.96 upon discharge (baseline) Electrolyte disturbances- Resolved Potassium repleted multiple times throughout stay - Potassium= 4.1 upon discharge Mg and phosphorus were low on admission- were repleted. Stable afterwards. Demand ischemia in the setting of suspected sepsis, UTI, and dehydration Mild elevation to 36.1, peaked at 58.2 and now trending down. Most recent 37.5 no chest pain or cardiac complaints - stable Leg edema - stable - Held home Lasix as above while in hospital, resumed on discharge Diabetes Held home glipizide and kept on Sliding scale insulin while admitted - resumed on discharge Hypertension Continue metoprolol tartrate 50 mg PO twice daily Hyperlipidemia Continue rosuvastatin 5 mg PO daily Restless legs Continue home pramipexole DVT prophylaxis: Received Heparin SQ while admitted Diet: Heart healthy, DM 2 Dispo: home CODE STATUS: Full (2) UTI (urinary tract infection): (3) Chronic kidney disease: (4) Hyperlipidemia: (5) Diabetes: (6) Hypertension: (7) Pain of right great toe: Total Time Total Time Spent Total Time Spent (In Minutes): As per attending attestation Discharge Plan Discharge Items Patient Disposition: Home - Self-Care Reason For Visit: UTI Discharge Diagnosis: Sepsis secondary to UTI Activity: Per Instructions section Non-emergency contact: Primary Care Provider Call non-emergency contact if: you have any medication questions and your symptoms worsen Follow-up/Referrals: Gianna Ochoa MD [Primary Care Provider] - 06/18/22 3:00 pm Diet: Heart Healthy Addtl Attending Provider Instructions: You were admitted to the hospital for sepsis secondary to a urinary tract infection. You were treated with the antibiotic ceftriaxone originally but you were switched to ertapenem, a different antibiotic that was better suited for the bacteria causing your infection. A discharge summary will be sent to your primary care physician to ensure continuity of care. Please bring this discharge summary with you to your next office appointment so that your provider can review it at that time. Medications: - Your ertapenem medication is to be for 7 days total. You received 4 doses while in the hospital. - You have been set up at the [facility] Unit at [facility] to receive your ertapenem antibiotic. You will receive 3 doses (one each day) at this location beginning tomorrow (, 06/10/2022). - You were prescribed the medication colchicine 0.6 mg two times per day for a possible gout flare. Take this medication for 2-3 days after the pain seems to have resolved. - You were given Voltaren gel to use on your right big toe as well. Apply this gel as needed up to 4x per day. - Otherwise, continue your home medications as before your admission. Follow up appointments: Make a follow up appointment with your PCP within the next week. It is very important that you follow up with them shortly after discharge from the hospital. Don't forget to mention the status of your right big toe at this appointment. Call your primary care provider if: - you have a recurrence of your urinary symptoms without severe pain, fevers, chills, or back pain CALL 911 OR GO TO THE EMERGENCY DEPARTMENT if you experience any of the following: - Recurrence of your urinary symptoms with associated fevers/chills and/or back pain - Sudden, severe abdominal pain or nausea/vomiting - Severe chest pain or chest pain that radiates to your jaw or arm - Sudden, severe shortness of breath or difficulty breathing Pending Studies at Discharge: No Stand-Alone Forms: My [facility], Smoking Cessation Medications and DC Order Prescriptions: New colchicine 0.6 mg tablet 0.6 mg PO BID Qty: 14 1RF Rx Instructions: Continue 2-3 days after pain in right great toe (gout flare) has resolved diclofenac sodium [Voltaren Arthritis Pain] 1 % gel 4 g topical QID PRN (Reason: right great toe pain) Qty: 100 1RF Rx Instructions: apply to right big toe as need for pain Continued aspirin 81 mg tablet,delayed release (DR/EC) 81 mg PO DAILY cholecalciferol (vitamin D3) 2,000 unit tablet 2,000 units PO DAILY potassium chloride 10 mEq tablet extended release 10 meq PO DAILY rosuvastatin 5 mg tablet 5 mg PO DAILY pramipexole 0.125 mg tablet 0.25 mg PO BID Rx Instructions: 2 tablet dose furosemide 20 mg tablet 20 mg PO DAILY glipizide 5 mg tablet 2.5 mg PO DAILY Rx Instructions: 1/2 tablet dose metoprolol tartrate 50 mg tablet 50 mg PO BID calcium carbonate-vitamin D3 [Calcium 600 + D(3)] 600 mg-10 mcg (400 unit) Tablet 1 tab PO DAILY Discharge Orders: Discharge Order (Routine); Ordered 06/09/22 Ordered By: Yany Velasquez/Other Patient Handouts: High Blood Sugar (Hyperglycemia), Hypoglycemia (Low Blood Sugar), Managing Type 2 Diabetes Admission Data Admit Date/Time: 06/04/22 21:51 Attending Provider: Umm Mojica Admit Provider: Luis Boswell Primary Care Provider: Gianna Ochoa Other Providers: Librado Abdul ; Guy Gonzalez Other Interventions: Discharge Summary Assessment (RN) Last Done: 06/09/22 12:38 Supervising Physician Co-Signing Physician Notes Resident Physician Supervision Note: I independently interviewed and examined the patient and verified the matthews history and physical, reviewed labs and image studies and agree with resident Dr. Trimble findings and care plan. Resident Activity Tracking Resident Involvement: Resident Care Provided Care Provided: Adult Hospital Medicine
[2022-06-09] MEDS: METOPROLOL TARTRATE 50 MG TAB PO SCH (08:10)
[2022-06-09] MEDS: PRAMIPEXOLE DIHYDROCHLO 0.25 MG TAB PO SCH (08:10)
[2022-06-09] MEDS: CALCIUM 600MG + VIT D 400 IU TAB PO SCH (08:11)
[2022-06-09] MEDS: ROSUVASTATIN CALCIUM 5 MG TAB PO SCH (08:11)
[2022-06-09] MEDS: CHOLECALCIFEROL 1,000 UNITS 25 MCG TAB PO SCH (08:11)
[2022-06-09] MEDS: HEPARIN SOD 5,000 UNIT/0.5 ML VIAL SQ SCH (08:12)
[2022-06-09] MEDS: ASPIRIN 81 MG ECTAB PO SCH (08:12)
[2022-06-09] MEDS: INSULIN ASPART PER UNIT SC SCH ×2 (08:22→12:25)
[2022-06-09] MEDS: POTASSIUM CHLORIDE 10 MEQ TABCR PO SCH (08:22)
[2022-06-09 08:32] LABS: Basophils # (auto) 0.04 K/uL (0-0.2); Basophils % (auto) 0.6 %; Eosinophils # (auto) 0.22 K/uL (0-0.50); Eosinophils % (auto) 3.4 %; Immature Granulocytes % (auto) 1.5 %; Lymphocytes # (auto) 1.64 K/uL (1.2-3.4); Lymphocytes % (auto) 25.1 %; Monocytes # (auto) 0.72 K/uL (0.24-0.82); Neutrophils # (auto) 3.82 K/uL (1.4-6.5); Neutrophils % (auto) 58.4 %
[2022-06-09] MEDS: ERTAPENEM SODIUM 1,000 MG in SYRINGE 0 ML IV SCH (13:30)
== END 2022-06-09 14:37 | disposition home or self-care (01) | DRG 872 ==
LOC: ED 17:34 → EDINP 21:51 → SUATTDRO 21:51 → EDINP 06-06 02:49 → 2N 06-06 10:42

== ENCOUNTER 2024-07-20 09:02 | Inpatient (IN) ==
[2024-07-20] MEDS: SODIUM CHLORIDE 0.9% 1,000 ML IV ONE (09:57)
--- NOTE | 2024-07-20 10:00 | Emergency Department Note ---
ED Provider Note History of Present Illness Chief Complaint: Weakness Stated Complaint: WEAKNESS Time Seen by Provider: 07/20/24 09:36 Source: patient Mode of arrival: ambulatory Limitations: no limitations This patient is an 88-year-old female who presents to the emergency department for evaluation of generalized weakness. Patient reports that she feels very weak and like she is unable to get up and do anything. This has been worsening over the past week but is very severe today. She states that she has been having issues with a UTI over the past month. She has been on different medications for this but is unable to completely clear it. She reports she has been seeing [facility] in [place] for this. She states that she has not been eating or drinking much unless her son comes to give her something. She lives by herself and her is currently in [facility]. Her son lives nearby and does check on her frequently. He states that she has not been doing well this week. He says that someone called from [place] and was concerned that she was not drinking enough fluids. She had an appointment with them scheduled for today but came here instead. Patient denies any chest pain, shortness of breath, headaches, fevers or chills. She does note some diarrhea over the past few days. Denies any blood in her stool. Home Medications Medication Instructions Recorded Confirmed Type cholecalciferol (vitamin D3) 50 2,000 units PO DAILY 06/11/19 07/25/24 History mcg (2,000 unit) tablet calcium 600 mg (as 1 tab PO DAILY 06/04/22 07/25/24 History carbonate)-vitamin D3 10 mcg (400 unit) tablet (Calcium 600 + D(3)) multivitamin 1 tab PO DAILY 08/23/22 07/25/24 History metformin 500 mg tablet,extended 500 mg PO DAILY 90 days #90 tabs 12/20/23 07/25/24 Rx release 24hr (osmotic) metoprolol tartrate 50 mg tablet 50 mg PO BID #180 tabs 02/24/24 07/25/24 Rx gabapentin 300 mg capsule 300 mg PO DAILY #90 caps 03/13/24 07/25/24 Rx doxycycline hyclate 50 mg capsule 50 mg PO BID 30 days #60 caps 03/30/24 07/25/24 Rx potassium chloride 10 mEq 10 meq PO DAILY #90 tabs 05/17/24 07/25/24 Rx tablet,extended release rosuvastatin 5 mg tablet 5 mg PO DAILY 90 days #90 tabs 05/17/24 07/25/24 Rx cyanocobalamin (vitamin B-12) 1,000 mcg PO DAILY #30 caps 07/23/24 07/25/24 Rx 1,000 mcg capsule famotidine 20 mg tablet 20 mg PO DAILY #30 tabs 07/23/24 07/25/24 Rx magnesium chloride 64 mg 64 mg PO QAM #30 tabs 07/23/24 07/25/24 Rx (magnesium chloride) tablet,delayed release (Mag 64) methenamine hippurate 1 gram tablet 1 g PO BID #60 tabs 07/23/24 07/25/24 Rx phenazopyridine 100 mg tablet 100 mg PO Q8H PRN pain #20 tabs 07/23/24 07/25/24 Rx (Pyridium) sulfamethoxazole 800 1 tab PO BID 4 days #8 tabs 07/23/24 07/25/24 Rx mg-trimethoprim 160 mg tablet (Bactrim DS) Allergies Allergy/AdvReac Type Severity Reaction Status Date / Time No Known Allergies Allergy Verified 07/25/24 11:52 Past Med/Surg History Problem List (Updated 07/26/24 @ 00:09 by Serjio Hernandez) Pancolitis Hypomagnesemia Renal insufficiency Acute UTI Acute seborrheic otitis externa 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 Hypertension (Chronic) Peripheral neuropathy (Chronic) Hyperlipidemia (Chronic) Gout (Chronic) 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, right knee Right knee DJD Anemia Medical History Elevated troponin KATY (acute kidney injury) UTI (urinary tract infection) Sepsis Surgical History H/O bilateral oophorectomy S/P appendectomy Family History Father Stroke Son Tonsil cancer Mother Ovarian cancer Other No pertinent family history Denies family history of Sudden Prostate cancer Diabetes Coronary heart disease Cerebral aneurysm Depression Heart disease Breast cancer Lung cancer Colorectal cancer Lung disease Social History Smoking Status: Never smoker Second Hand Exposure: No; Do You Dip or Chew Tobacco: No; Hx Alcohol Use: No Hx Substance Use: No Preferred Language: Estonian Communication Ability: Effective Visual Impairment: Partially Limited Hearing Ability: Use of Hearing Aid [employer]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 Beliefs That Will Affect Care: None marital status: Current Living Situation: Alone current occupational status: retired Feels Safe at Home: Yes Childhood Exposure to Second-Hand Smoke: Yes Diet: regular caffeine: No Physical Activity Frequency: 1-2 Times per Week Seatbelt Use: always Sunscreen Use: Yes Assistive Devices: Walker Physical Exam Vital Signs Vital Signs - 24 hr 07/20/24 09:13 07/20/24 09:36 Temperature 36.3 C L Temperature Source Skin Pulse Rate 79 Respiratory Rate 20 Respiratory Effort / Characteristics Non-Labored Spontaneous Respiratory Depth Normal Respiratory Pattern Regular Blood Pressure 134/83 Blood Pressure Mean 100 Pulse Oximetry 100 100 Oxygen Delivery Method Room Air Room Air Oxygen Flow Rate 0 Sepsis Recent Fever Within 48 Hours No Sepsis New/Unexplained Change in Mental Status N/A Sepsis Action Taken by Nursing No Action Required VITALS: Vitals are noted on the nurse's note and reviewed by myself. GENERAL: This is an 88-year-old female, tearful, anxious appearing. SKIN: The skin was without rashes. EYES: Pupils equal round and reactive to light and accommodation. MOUTH: Mucous membranes dry. NECK: Supple without nuchal rigidity. No lymphadenopathy. HEART: Regular rate and rhythm without murmurs gallops or rubs. LUNGS: Clear to auscultation bilaterally without wheezes, rales or rhonchi. ABDOMEN: Positive bowel sounds x 4. Tenderness in the right upper quadrant. No guarding or rebound tenderness. NEURO: Patient was alert and oriented to person place and time. Course Administered Medications Discontinued Medications Acetaminophen (Acetaminophen 325 Mg Tab) 650 mg PO Q4H PRN PRN Reason: pain/fever Stop: 08/19/24 18:02 Last Admin: 07/22/24 08:25 Dose: 650 mg Documented By: N Cyanocobalamin (Cyanocobalamin (B-12) 500 Mcg Tablet) 500 mcg PO QAM [facility] Stop: 08/21/24 08:59 Last Admin: 07/23/24 09:34 Dose: 500 mcg Documented By: Admin: 07/22/24 12:31 Dose: 500 mcg Documented By: LEATHA Enoxaparin Sodium (Enoxaparin Inj 40 Mg/0.4 Ml Syr) 40 mg SQ Q24H J[facility]TE Stop: 08/19/24 18:02 Last Admin: 07/22/24 18:42 Dose: 40 mg Documented By: Admin: 07/21/24 18:44 Dose: 40 mg Documented By: Admin: 07/20/24 20:29 Dose: 40 mg Documented By: DAVID Famotidine (Famotidine 10 Mg Tablet) 10 mg PO BID JULIETTE Stop: 08/20/24 20:59 Last Admin: 07/23/24 09:35 Dose: 10 mg Documented By: Admin: 07/22/24 20:12 Dose: 10 mg Documented By: Admin: 07/22/24 08:23 Dose: 10 mg Documented By: Admin: 07/21/24 20:32 Dose: 10 mg Documented By: STAN Gabapentin (Gabapentin 300 Mg Cap) 300 mg PO DAILY JULIETTE Stop: 08/20/24 08:59 Last Admin: 07/23/24 09:35 Dose: 300 mg Documented By: Admin: 07/22/24 08:23 Dose: 300 mg Documented By: Admin: 07/21/24 08:16 Dose: 300 mg Documented By: LEATHA Sodium Chloride (Nss) 1,000 mls @ 999 mls/hr IV .Q1H1M ONE Stop: 07/20/24 10:51 Last Infusion: 07/20/24 11:54 Dose: Infused Documented By: Admin: 07/20/24 09:57 Dose: 999 mls/hr Documented By: TIESHA Magnesium Sulfate/Dextrose (Magnesium Sulfate / D5w) 1 gm in 100 mls @ 100 mls/hr IV NOW STA Stop: 07/20/24 13:25 Last Infusion: 07/20/24 13:50 Dose: Infused Documented By: Admin: 07/20/24 12:40 Dose: 100 mls/hr Documented By: SONIA Cefepime HCl (Maxipime 2000mg) 1,000 mg in 10 mls @ 5 mls/min IV NOW STA; Protocol Stop: 07/20/24 12:27 Last Admin: 07/20/24 12:50 Dose: Not Given Documented By: SONIA Magnesium Sulfate/Dextrose (Magnesium Sulfate / D5w) 1 gm in 100 mls @ 50 mls/hr IV ONE ONE Stop: 07/20/24 15:29 Last Infusion: 07/20/24 15:40 Dose: Infused Documented By: Admin: 07/20/24 13:43 Dose: 50 mls/hr Documented By: DENISE Ceftriaxone Sodium (Rocephin) 2,000 mg in 50 mls @ 100 mls/hr IV Q24H JULIETTE Stop: 07/30/24 20:59 Last Infusion: 07/22/24 21:18 Dose: Infused Documented By: Admin: 07/22/24 20:11 Dose: 100 mls/hr Documented By: Infusion: 07/21/24 21:02 Dose: Infused Documented By: Admin: 07/21/24 20:32 Dose: 100 mls/hr Documented By: Infusion: 07/20/24 21:04 Dose: Infused Documented By: Admin: 07/20/24 20:29 Dose: 100 mls/hr Documented By: DAVID Sodium Chloride (Nss) 1,000 mls @ 80 mls/hr IV .[id number] JULIETTE Stop: 07/22/24 07:32 Last Infusion: 07/21/24 09:40 Dose: Infused Documented By: Admin: 07/21/24 04:58 Dose: 80 mls/hr Documented By: Infusion: 07/21/24 04:58 Dose: Infused Documented By: Admin: 07/20/24 18:46 Dose: 80 mls/hr Documented By: BHUMIKA Magnesium Sulfate/Dextrose (Magnesium Sulfate / D5w) 1 gm in 100 mls @ 50 mls/hr IV Q2H JUL[facility]ETTE Stop: 07/21/24 13:14 Last Infusion: 07/21/24 14:31 Dose: Infused Documented By: Admin: 07/21/24 12:20 Dose: 50 mls/hr Documented By: Infusion: 07/21/24 11:36 Dose: Infused Documented By: Admin: 07/21/24 09:36 Dose: 50 mls/hr Documented By: LEATHA Magnesium Sulfate/Dextrose (Magnesium Sulfate / D5w) 1 gm in 100 mls @ 50 mls/hr IV ONE ONE Stop: 07/23/24 10:44 Last Infusion: 07/23/24 11:55 Dose: Infused Documented By: Admin: 07/23/24 09:25 Dose: 50 mls/hr Documented By: ALBERT Influenza Virus Vacc Triv Types A&B (Influenza Vacc [id number](65y+)/Pf (Iiv3) 0.5ml Syr) 0.5 ml IM .ONCE ONE Stop: 07/20/24 18:17 Last Admin: 07/23/24 13:30 Dose: 0.5 ml Documented By: ALBERT Ioversol (Optiray 320 100ml) 94 ml IV ONCE ONE Stop: 07/20/24 11:03 Last Admin: 07/20/24 11:02 Dose: 94 ml Documented By: SHANDRA Lactobacillus Acidophilus (Advanced Probiotic 625 Mg Capsule) 1,250 mg PO DAILY [facility]TE Stop: 08/20/24 10:59 Last Admin: 07/23/24 09:35 Dose: 1,250 mg Documented By: Admin: 07/22/24 08:23 Dose: 1,250 mg Documented By: Admin: 07/21/24 12:50 Dose: 1,250 mg Documented By: LEATHA Lidocaine (Lidocaine 5% 1 Patch) [facility] [place] Stop: 08/21/24 09:59 Last Admin: 07/23/24 09:39 Dose: 1 patch Documented By: Admin: 07/22/24 11:34 Dose: 1 patch Documented By: LEATHA Magnesium Chloride (Magnesium Chloride W/Calcium 64mg Delayed Rel Tab) 64 mg PO QAM [facility] Stop: 08/22/24 08:59 Last Admin: 07/23/24 10:17 Dose: 64 mg Documented By: ALBERT Metoprolol Tartrate (Metoprolol Tartrate 50 Mg Tab) 50 mg PO BID JUL[facility]ETTE Stop: 08/19/24 20:59 Last Admin: 07/23/24 09:35 Dose: 50 mg Documented By: Admin: 07/22/24 20:12 Dose: 50 mg Documented By: Admin: 07/22/24 08:24 Dose: 50 mg Documented By: Admin: 07/21/24 20:32 Dose: 50 mg Documented By: Admin: 07/21/24 08:16 Dose: 50 mg Documented By: Admin: 07/20/24 20:29 Dose: 50 mg Documented By: DAVID Miscellaneous (Remove Lidoderm Patch) 1 each N/A DAILY@2100 [facility] Stop: 08/21/24 21:59 Last Admin: 07/22/24 20:12 Dose: 1 each Documented By: LINSEY Phenazopyridine HCl (Phenazopyridine Hcl 200 Mg Tab) 200 mg PO NOW STA Stop: 07/20/24 17:15 Last Admin: 07/20/24 17:34 Dose: 200 mg Documented By: TIESHA Phenazopyridine HCl (Phenazopyridine Hcl 100 Mg Tab) 100 mg PO TID PRN PRN Reason: dysuria Stop: 08/19/24 22:15 Last Admin: 07/22/24 10:16 Dose: 100 mg Documented By: LEATHA Potassium Chloride (Potassium Chloride 10 Meq Tabcr) 10 meq PO DAILY [facility] Stop: 08/20/24 08:59 Last Admin: 07/23/24 09:24 Dose: 10 meq Documented By: Admin: 07/22/24 08:25 Dose: 10 meq Documented By: Admin: 07/21/24 08:19 Dose: 10 meq Documented By: LEATHA Potassium Chloride (Potassium Chloride 10 Meq Tabcr) 10 meq PO NOW STA Stop: 07/21/24 09:16 Last Admin: 07/21/24 09:36 Dose: 10 meq Documented By: LEATHA Potassium Chloride (Potassium Chloride 10 Meq Tabcr) 10 meq PO NOW STA Stop: 07/23/24 08:42 Last Admin: 07/23/24 09:24 Dose: 10 meq Documented By: ALBERT Rosuvastatin Calcium (Rosuvastatin Calcium 5 Mg Tab) 5 mg PO DAILY J[facility]ETTE Stop: 08/20/24 08:59 Last Admin: 07/23/24 09:35 Dose: 5 mg Documented By: Admin: 07/22/24 08:23 Dose: 5 mg Documented By: Admin: 07/21/24 08:16 Dose: 5 mg Documented By: LEATHA Vitamin D (Cholecalciferol 25 Mcg (1000 Units) Tab) 50 mcg PO DAILY J[facility]TE Stop: 08/20/24 08:59 Last Admin: 07/23/24 09:34 Dose: 50 mcg Documented By: Admin: 07/22/24 08:23 Dose: 50 mcg Documented By: Admin: 07/21/24 08:16 Dose: 50 mcg Documented By: LEATHA Medical Decision Making Differential Diagnosis Infection, dehydration, metabolic abnormality, hypo/hyperglycemia, electrolyte disturbance, anemia, hypoxia, cardiac sources, intracerebral event, toxicologic, neurologic, as well as other pathologies. Laboratory Data Attestation: I reviewed the patient's lab results. 07/22/24 06:58 07/23/24 07:39 Lab Results 07/20/24 07/20/24 07/20/24 Range/Units 09:49 09:57 11:39 WBC 10.37 (4.8-10.8) K/ul RBC 4.04 L (4.20-5.40) M/uL Hgb 12.0 (12.0-16.0) g/dl Hct 36.0 L (37.0-47.0) % MCV 89.1 (80.0-100.0) fL MCH 29.7 (25.0-34.0) pg MCHC 33.3 (32.0-36.0) g/dL RDW Std Deviation 47.4 H (36.4-46.3) fL RDW Coeff of Chito 14.6 H (11.5-14.5) % Plt Count 343 (130-400) K/uL MPV 10.6 (9.4-12.4) fL Immature Gran % (Auto) 0.7 % Neut % (Auto) 69.7 % Lymph % (Auto) 16.7 % [place] % (Auto) 12.0 % Eos % (Auto) 0.5 % Baso % (Auto) 0.4 % Neut # (Auto) 7.24 H (1.40-6.50) K/uL Lymph # (Auto) 1.73 (1.20-3.40) K/uL [place] # (Auto) 1.24 H (0.11-0.59) K/uL Eos # (Auto) 0.05 (0.00-0.50) K/uL Baso # (Auto) 0.04 (0.00-0.20) K/uL Immature Gran # (Auto) 0.07 (0.01-0.20) K/uL Sodium 139 (136-145) mmol/L Potassium 3.6 (3.5-5.1) mmol/L Chloride 105 (98-107) mmol/L Carbon Dioxide 22 (21-32) mmol/L Anion Gap 12 H (3-11) BUN 19 (6-23) mg/dl Creatinine 1.21 H (0.6-1.2) mg/dl Est Cr Clr Drug Dosing 32.5 ml/min eGFR 43.65 BUN/Creatinine Ratio 15.7 (10-20) Glucose 191 H (70-99(Fasting)) mg/dl Lactate 2.7 H* (0.4-2.0) mmol/L Calcium 9.6 (8.6-10.3) mg/dl Magnesium 1.2 L (1.7-2.4) mg/dl Total Bilirubin 1.6 H (0.2-1.0) mg/dl AST 20 (13-39) U/L ALT 18 (7-52) U/L Alkaline Phosphatase 61 (34-104) U/L Total Protein 6.8 (6.0-8.3) gm/dl Albumin 3.7 (3.4-5.0) gm/dl Globulin 3.1 (2.5-4.0) gm/dl Albumin/Globulin Ratio 1.2 (0.9-2) Urine Color Yellow Urine Appearance Turbid A (Clear) Urine pH 5.5 (4.5-7.5) Ur Specific [place] 1.029 (1.000-1.030) Urine Protein 1+ H (Negative) Urine Glucose (UA) Negative (Negative) Urine Ketones Negative (Negative) Urine Blood 2+ H (Negative) Urine Nitrite Negative (Negative) Urine Bilirubin Negative (Negative) Urine Urobilinogen Negative (Negative) Ur Leukocyte Esterase 3+ H (Negative) Urine WBC (Auto) >50 H (0-5) /hpf Urine RBC (Auto) 0-2 (0-2) /hpf U Hyaline Cast (Auto) 0-2 (0-2) /lpf U Epithel Cells (Auto) 6-10 H (0-2) /hpf Urine Bacteria (Auto) 2+ H (None Seen) Adenovirus (PCR) Not Detected (NotDetected) B. pertussis DNA (PCR) Not Detected (NotDetected) B.parapertussis DNA PCR Not Detected (NotDetected) C. pneumoniae DNA (PCR) Not Detected (NotDetected) Coronavirus OC43 (PCR) Not Detected (NotDetected) Coronavirus HKU1 (PCR) Not Detected (NotDetected) Coronavirus 229E (PCR) Not Detected (NotDetected) SARS-CoV-2 (PCR) Not Detected (NotDetected) Coronavirus NL63 (PCR) Not Detected (NotDetected) Human Metapneumovir PCR Not Detected (NotDetected) Influenza Type A (PCR) Not Detected (NotDetected) Influenza Type B (PCR) Not Detected (NotDetected) M. pneumoniae (PCR) Not Detected (NotDetected) Parainfluenza 1 (PCR) Not Detected (NotDetected) Parainfluenza 2 (PCR) Not Detected (NotDetected) Parainfluenza 3 (PCR) Not Detected (NotDetected) Parainfluenza 4 (PCR) Not Detected (NotDetected) RSV (PCR) Not Detected (NotDetected) Entero/Rhino (PCR) Not Detected (NotDetected) 07/20/24 Range/Units 11:52 WBC (4.8-10.8) K/ul RBC (4.20-5.40) M/uL Hgb (12.0-16.0) g/dl Hct (37.0-47.0) % MCV (80.0-100.0) fL MCH (25.0-34.0) pg MCHC (32.0-36.0) g/dL RDW Std Deviation (36.4-46.3) fL RDW Coeff of Chito (11.5-14.5) % Plt Count (130-400) K/uL MPV (9.4-12.4) fL Immature Gran % (Auto) % Neut % (Auto) % Lymph % (Auto) % [place] % (Auto) % Eos % (Auto) % Baso % (Auto) % Neut # (Auto) (1.40-6.50) K/uL Lymph # (Auto) (1.20-3.40) K/uL [place] # (Auto) (0.11-0.59) K/uL Eos # (Auto) (0.00-0.50) K/uL Baso # (Auto) (0.00-0.20) K/uL Immature Gran # (Auto) (0.01-0.20) K/uL Sodium (136-145) mmol/L Potassium (3.5-5.1) mmol/L Chloride (98-107) mmol/L Carbon Dioxide (21-32) mmol/L Anion Gap (3-11) BUN (6-23) mg/dl Creatinine (0.6-1.2) mg/dl Est Cr Clr Drug Dosing ml/min eGFR BUN/Creatinine Ratio (10-20) Glucose (70-99(Fasting)) mg/dl Lactate 0.9 (0.4-2.0) mmol/L Calcium (8.6-10.3) mg/dl Magnesium (1.7-2.4) mg/dl Total Bilirubin (0.2-1.0) mg/dl AST (13-39) U/L ALT (7-52) U/L Alkaline Phosphatase (34-104) U/L Total Protein (6.0-8.3) gm/dl Albumin (3.4-5.0) gm/dl Globulin (2.5-4.0) gm/dl Albumin/Globulin Ratio (0.9-2) Urine Color Urine Appearance (Clear) Urine pH (4.5-7.5) Ur Specific [place] (1.000-1.030) Urine Protein (Negative) Urine Glucose (UA) (Negative) Urine Ketones (Negative) Urine Blood (Negative) Urine Nitrite (Negative) Urine Bilirubin (Negative) Urine Urobilinogen (Negative) Ur Leukocyte Esterase (Negative) Urine WBC (Auto) (0-5) /hpf Urine RBC (Auto) (0-2) /hpf U Hyaline Cast (Auto) (0-2) /lpf U Epithel Cells (Auto) (0-2) /hpf Urine Bacteria (Auto) (None Seen) Adenovirus (PCR) (NotDetected) B. pertussis DNA (PCR) (NotDetected) B.parapertussis DNA PCR (NotDetected) C. pneumoniae DNA (PCR) (NotDetected) Coronavirus OC43 (PCR) (NotDetected) Coronavirus HKU1 (PCR) (NotDetected) Coronavirus 229E (PCR) (NotDetected) SARS-CoV-2 (PCR) (NotDetected) Coronavirus NL63 (PCR) (NotDetected) Human Metapneumovir PCR (NotDetected) Influenza Type A (PCR) (NotDetected) Influenza Type B (PCR) (NotDetected) M. pneumoniae (PCR) (NotDetected) Parainfluenza 1 (PCR) (NotDetected) Parainfluenza 2 (PCR) (NotDetected) Parainfluenza 3 (PCR) (NotDetected) Parainfluenza 4 (PCR) (NotDetected) RSV (PCR) (NotDetected) Entero/Rhino (PCR) (NotDetected) MDM Narrative This patient is an 88-year-old female who presents to the emergency department for evaluation of generalized weakness. Patient is extremely weak, not getting around well and not taking care of herself at home. Labs revealed an elevated lactate. Patient is hypomagnesemic. She does appear to have a UTI. Given the extent of her weakness I do feel she will require admission and possibly transfer to a rehab or skilled nerve at same facility. Patient treated with IV fluids and magnesium repletion. I did order cefepime for her UTI based on prior cultures, however this was canceled by the hospitalist service. Patient was evaluated by the hospitalist service and admitted for further care. Discharge Plan Visit Data Chief Complaint: Weakness Stated Complaint: WEAKNESS ED Provider: Allyn Moya ED Midlevel Provider: Suzi Ramsey Patient Disposition: Admitted As Inpatient Discharge Instructions Interventions: ED Discharge Assessment Last Done: 07/20/24 17:47
[2024-07-20 10:23] LABS: Basophils # (auto) 0.04 K/uL (0.00-0.20); Basophils % (auto) 0.4 %; Eosinophils # (auto) 0.05 K/uL (0.00-0.50); Eosinophils % (auto) 0.5 %; Immature Granulocytes # (auto) 0.07 K/uL (0.01-0.20); Immature Granulocytes % (auto) 0.7 %; Lymphocytes # (auto) 1.73 K/uL (1.20-3.40); Lymphocytes % (auto) 16.7 %; Mean Corpuscular Hemoglobin 29.7 pg (25.0-34.0); Mean Corpuscular Hgb Conc 33.3 g/dL (32.0-36.0); Mean Corpuscular Volume 89.1 fL (80.0-100.0); Mean Platelet Volume 10.6 fL (9.4-12.4); Monocytes # (auto) 1.24 K/uL (0.11-0.59); Neutrophils # (auto) 7.24 K/uL (1.40-6.50); Neutrophils % (auto) 69.7 %; Platelet Count 343 K/uL (130-400); RDW Coefficient of Variation 14.6 % (11.5-14.5); RDW Standard Deviation 47.4 fL (36.4-46.3); Red Blood Count 4.04 M/uL (4.20-5.40); White Blood Count 10.37 K/ul (4.8-10.8)
--- NOTE | 2024-07-20 10:31 | XRay Report ---
XR chest 1V portable HISTORY: 88 years-old Female weakness COMPARISON: 06/04/2022 TECHNIQUE: AP view of the chest FINDINGS: Cardiomediastinal and hilar silhouettes are within normal limits. Atherosclerosis of the aorta. No pn eumothorax, pleural effusion or airspace consolidation. Bones appear grossly intact. IMPRESSION: No acute process. ACT 112: Negative or not required by law. The above report was generated using voice recognition software. It may contain grammatical, syntax o r spelling errors. Electronically signed by: Liam Francis M.D. 07/20/2024 10:30 AM
[2024-07-20 10:42] LABS: Albumin Globulin Ratio 1.2 (0.9-2); Albumin Level 3.7 gm/dl (3.4-5.0); BUN Creatinine Ratio 15.7 (10-20); Bilirubin,Total 1.6 mg/dl (0.2-1.0); Calcium 9.6 mg/dl (8.6-10.3); Creatinine Clr Calc Pharmacy 32.5 ml/min; Globulin 3.1 gm/dl (2.5-4.0); Magnesium 1.2 mg/dl (1.7-2.4); Potassium 3.6 mmol/L (3.5-5.1); Total Protein 6.8 gm/dl (6.0-8.3)
[2024-07-20] MEDS: OPTIRAY 320 100ml IV ONE (11:02)
[2024-07-20 11:07] LABS: Adenovirus PCR Not Detected (NotDetected); Bordetella parapertussis PCR Not Detected (NotDetected); Bordetella pertussis PCR Not Detected (NotDetected); Chlamydia pneumoniae PCR Not Detected (NotDetected); Coronavirus 229E PCR Not Detected (NotDetected); Coronavirus CoV-2 (COVID19)PCR Not Detected (NotDetected); Coronavirus HKU1 PCR Not Detected (NotDetected); Coronavirus NL63 PCR Not Detected (NotDetected); Coronavirus OC43PCR Not Detected (NotDetected); Human Metapneumovirus PCR Not Detected (NotDetected); Influenza A PCR Not Detected (NotDetected); Influenza B PCR Not Detected (NotDetected); Mycoplasma pneumoniae PCR Not Detected (NotDetected); Parainfluenza Virus 1 PCR Not Detected (NotDetected); Parainfluenza Virus 2 PCR Not Detected (NotDetected); Parainfluenza Virus 3 PCR Not Detected (NotDetected); Parainfluenza Virus 4 PCR Not Detected (NotDetected); Respiratory Syncytial VirusPCR Not Detected (NotDetected); Rhinovirus/Enterovirus PCR Not Detected (NotDetected)
--- NOTE | 2024-07-20 11:51 | CT Scan Report ---
ABDOMEN AND PELVIS CT WITH IV CONTRAST CT DOSE: 868.75 mGy.cm HISTORY: Acute upper quadrant abdominal pain ruq pain TECHNIQUE: Multiaxial CT images of the abdomen and pelvis were performed following the IV administrat ion of 94 cc of Optiray, A dose lowering technique was utilized adhering to the principles of ALARA. COMPARISON STUDY: None. FINDINGS: Mild bibasilar atelectasis. No free air. 6 mm age-indeterminate, perisplenic collection pos teriorly. Atrophic pancreas. Unremarkable adrenal glands. Cholelithiasis without evidence of acute ch olecystitis. Unremarkable liver. The cortical thickening of the right kidney with subcentimeter indet erminate hypodense lesions in, likely cysts. Severely atrophic left kidney. Decompressed urinary blad darcie wall thickening. Atherosclerosis of the aorta and branch vessels with multifocal branch stenoses. Small hiatal hernia with distal esophageal wall thickening. Rectal varicosities. Circumferential wall thickening is noted throughout the majority of the rectum and sigmoid with mild adjacent inflammator y stranding. No acute fracture. IMPRESSION: 1. No bowel obstruction or pneumoperitoneum. 2. There is wall thickening of the majority of the large bowel and rectum which may represent a nonsp ecific proctocolitis. 3. Cholelithiasis. 4. Internal hemorrhoids. 5. Severely atrophic left kidney. 6. Additional findings as above. ACT 112: Negative or not required by law. The above report was generated using voice recognition software. It may contain grammatical, syntax o r spelling errors. Electronically signed by: Liam Francis M.D. 07/20/2024 11:48 AM
[2024-07-20 12:05] LABS: Appearance Urine Turbid (Clear); Bacteria Urine Automated 2+ (None Seen); Bilirubin Urine Negative (Negative); Blood Urine 2+ (Negative); Cast Urine Automated 0-2 /lpf (0-2); Color Urine Yellow; Glucose Urine UA Negative (Negative); Ketones Urine Negative (Negative); Leukocyte Esterase Urine 3+ (Negative); Nitrite Urine Negative (Negative); Protein Urine 1+ (Negative); RBC Urine Automated 0-2 /hpf (0-2); Specific Gravity Urine 1.029 (1.000-1.030); Urobilinogen Urine Negative (Negative); WBC Urine Automated >50 /hpf (0-5); pH Urine 5.5 (4.5-7.5)
[2024-07-20] MEDS: MAGNESIUM SULFATE / D5W 1 GM/100 ML BAG IV STA (12:40)
[2024-07-20] MEDS: CEFEPIME 1000MG 1,000 MG/10 ML SYR IV STA (12:50)
[2024-07-20] MEDS: MAGNESIUM SULFATE / D5W 1 GM/100 ML BAG IV ONE (13:43)
--- NOTE | 2024-07-20 13:50 | History & Physical Report ---
Date of Service July 20, 2024 Assessment & Plan (1) Acute UTI: Plan: Acute/recurrent with this being her 3rd UTI in the past 3 months - Admit to med/surg - Diabetic diet ordered - Vital signs per unit protocol - Based on prior cultures, will treat/cover for klebsiella which was sensitive to ceftriaxone, first dose to be given this evening (2100) - Stop bactrim ds, uncertain why she is taking doxycycline - Urine culture ordered/pending - Consider urology referral on d/c due to recurrent UTIs and consider methenamine hippurate 1g q12h on d/c for UTI ppx - Gently hydrate with NSS at 80 ml/hr (2) Renal insufficiency: Plan: Mildly elevated from baseline, but does not meet criteria for KATY - Gently hydrate as noted above with NSS at 80 ml/hr - Repeat BMP to trend creatinine in AM - Avoid nephrotoxic meds and renally adjust med where appropriate - received IV contrast with CTAP today, therefore hydrating to prevent contrast induced nephropathy (3) Pancolitis: Plan: Acute - In setting of watery diarrhea and multiple recent course of antibiotics - High-risk and high index of suspicion for c. diff - Toxin ordered and is pending - If positive, initiate Vancomycin 125mg PO q6 x10 days [address] place in isolation (4) Hypomagnesemia: Plan: Acute - Magnesium sulfate 1g x1 ordered/administered by ED - Ordered another gram of Mag Sulfate 1gx1 now - Repeat mag level in AM (5) Hyperbilirubinemia: Plan: Acute - With noted cholelithiasis on CT - Neg roldan's sign and not endorsing abd pain or n/v - Consider RUQ ultrasound if these symptoms should develop or develops transaminitis - Trend with hepatic function panel in AM Plan Chronic medical issues: 1. HTN - controlled, continue metoprolol tartrate 2. HLD - continue crestor 3. Peripheral neuropathy - resume gabapentin 4. DMT2 - hold metformin. diabetic diet ordered. Accuchecks ordered, add short acting coverage with meals if BSG >180 Lovenox ordered for VTE ppx. AM labs ordered including cbc, bmp, hepatic function panel, and mag level. PT/OT eval ordered. Above plan of care has been d/w Dr. Ta, further orders as warranted by attending. History of Present Illness Chief Complaint: Weakness Primary Care Provider: MD Janis Garcia is an 88 yo F with a pmhx of HLD, HTN, NIDDM, gout, congenital solitary functioning kidney and peripheral neuropathy who presents to the ER today c/o generalized weakness. She reports that this has been going on for the past few weeks but today her son came to the house and convinced her to seek evaluation in the ER. She endorses dysuria and frequency for the past few days in addition to watery diarrhea. She denies hematochezia or melena. She denies abdominal pain, fever, chills, nausea or vomiting. She reports poor oral intake. She has recently been treated twice for UTIs in the past 3 months, once in May and once in June of this year, both with klebsiella. Her work up in the ER today demonstrated a grossly infected appearing UA, normal wbc count, afebrile and otherwise hemodynamically stable. She is noted to have some renal insufficiency with a creatinine of 1.2 which is slightly above her baseline of 1.0. She has a mag of 1.2 and a total bilirubin of 1.6. Remaining LFTs normal. Her biofire was negative. She underwent CTAP and is noted to have bladder wall thickening in addition to pancolitis and cholelithiasis. She was treated with a dose of IV cefepime 1g x1, one liter of NSS, and a dose of Mag sulfate 1gx1. She is currently living alone as her was recently transitioned to a snf. She has been referred for admission to the hospital medicine team. Allergies Allergy/AdvReac Type Severity Reaction Status Date / Time No Known Allergies Allergy Verified 07/20/24 10:11 Home Medications Medication Instructions Recorded Confirmed Type cholecalciferol (vitamin D3) 50 2,000 units PO DAILY 06/11/19 07/20/24 History mcg (2,000 unit) tablet calcium 600 mg (as 1 tab PO DAILY 06/04/22 07/20/24 History carbonate)-vitamin D3 10 mcg (400 unit) tablet (Calcium 600 + D(3)) multivitamin 1 tab PO DAILY 08/23/22 07/20/24 History metformin 500 mg tablet,extended 500 mg PO DAILY 90 days #90 tabs 12/20/23 07/20/24 Rx release 24hr (osmotic) metoprolol tartrate 50 mg tablet 50 mg PO BID #180 tabs 02/24/24 07/20/24 Rx gabapentin 300 mg capsule 300 mg PO DAILY #90 caps 03/13/24 07/20/24 Rx doxycycline hyclate 50 mg capsule 50 mg PO BID 30 days #60 caps 03/30/24 07/20/24 Rx potassium chloride 10 mEq 10 meq PO DAILY #90 tabs 05/17/24 07/20/24 Rx tablet,extended release rosuvastatin 5 mg tablet 5 mg PO DAILY 90 days #90 tabs 05/17/24 07/20/24 Rx sulfamethoxazole 800 1 tab PO BID 10 days #20 tabs 06/21/24 07/20/24 Rx mg-trimethoprim 160 mg tablet (Bactrim DS) Past Med/Surg History Problem List (Updated 07/20/24 @ 13:45 by Viri Posada PA-C) Hyperbilirubinemia Pancolitis Hypomagnesemia Renal insufficiency Acute UTI Acute seborrheic otitis externa 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 Hypertension (Chronic) Peripheral neuropathy (Chronic) Hyperlipidemia (Chronic) Gout (Chronic) 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, right knee Right knee DJD Anemia Medical History Elevated troponin KATY (acute kidney injury) UTI (urinary tract infection) Sepsis Surgical History H/O bilateral oophorectomy S/P appendectomy Family History Father Stroke Son Tonsil cancer Mother Ovarian cancer Other No pertinent family history Denies family history of Sudden Prostate cancer Diabetes Coronary heart disease Cerebral aneurysm Depression Heart disease Breast cancer Lung cancer Colorectal cancer Lung disease Social History Smoking Status: Never smoker Second Hand Exposure: No; Do You Dip or Chew Tobacco: No; Hx Alcohol Use: No Hx Substance Use: No Preferred Language: Irish Communication Ability: Effective Visual Impairment: Partially Limited Hearing Ability: Use of Hearing Aid Screen Print Operator Required: No Beliefs That Will Affect Care: None marital status: Current Living Situation: Alone current occupational status: retired Other Information That Helps Us Care for You: No Feels Safe at Home: Yes Safety Concerns: Feels Safe At This Time Childhood Exposure to Second-Hand Smoke: Yes Diet: regular caffeine: No Physical Activity Frequency: 1-2 Times per Week Seatbelt Use: always Sunscreen Use: Yes Assistive Devices: Walker Review of Systems 2 Review of Systems: All systems reviewed and are unremarkable except as noted in HPI and below. Denies fever, chills, fatigue, headache, nasal congestion, sore throat, cough, chest pain, shortness of breath, palpitations, orthopnea, PND, abdominal pain, n/v, constipation, hematuria, frequency, back pain, joint pain or swelling, easy bruising or bleeding, skin lesions or rashes. Physical Exam 2 Physical Exam: GENERAL: 88 yo well-nourished elderly F. NAD. EYES: EOMI. PERRLA. Anicteric. HENT: Moist mucous membranes. No scleral icterus. No cervical lymphadenopathy. LUNGS: Clear to auscultation bilaterally. No W/R/R. CARDIOVASCULAR: Regular rate and rhythm. ABDOMEN: Soft, non-tender and non-distended. BS normoactive x 4 quad. -CVA tenderness. EXTREMITIES: No edema. Non-tender. Peripheral pulses +2/4. NEUROLOGIC: A&O x3. No focal neurological deficits. CN II-XII grossly intact. PSYCHIATRIC: Cooperative. Appropriate mood and affect. SKIN: Warm, dry, intact. No rashes or lesions. Results & Data Results & Data Vital Signs (Past 12 Hours) Vital Signs Temp Pulse Pulse Resp BP BP Pulse Ox 07/20/24 12:30 78 21 125/67 96 07/20/24 11:22 77 28 H 117/57 L 96 07/20/24 10:28 70 07/20/24 09:56 78 18 97 07/20/24 09:36 100 07/20/24 09:13 36.3 C L 79 20 134/83 100 O2 Del Method O2 Flow Rate 07/20/24 12:30 Room Air 07/20/24 11:22 Room Air 07/20/24 10:28 07/20/24 09:56 Room Air 07/20/24 09:36 Room Air 0 07/20/24 09:13 Room Air Laboratory Results 07/20/24 09:49 07/20/24 09:49 Diagnostic Findings Chest X-Ray 07/20/24 09:54 XR chest 1V portable HISTORY: 88 years-old Female weakness COMPARISON: 06/04/2022 TECHNIQUE: AP view of the chest FINDINGS: Cardiomediastinal and hilar silhouettes are within normal limits. Atherosclerosis of the aorta. No pneumothorax, pleural effusion or airspace consolidation. Bones appear grossly intact. IMPRESSION: No acute process. ACT 112: Negative or not required by law. The above report was generated using voice recognition software. It may contain grammatical, syntax or spelling errors. Electronically signed by: Liam Francis M.D. 07/20/2024 10:30 AM Abdomen/Pelvis CT 07/20/24 10:[address] WITH IV CONTRAST CT DOSE: 868.75 mGy.cm HISTORY: Acute upper quadrant abdominal pain ruq pain TECHNIQUE: Multiaxial CT images of the abdomen and pelvis were performed following the IV administration of 94 cc of Optiray, A dose lowering technique was utilized adhering to the principles of ALARA. COMPARISON STUDY: None. FINDINGS: Mild bibasilar atelectasis. No free air. 6 mm age-indeterminate, perisplenic collection posteriorly. Atrophic pancreas. Unremarkable adrenal glands. Cholelithiasis without evidence of acute cholecystitis. Unremarkable liver. The cortical thickening of the right kidney with subcentimeter indeterminate hypodense lesions in, likely cysts. Severely atrophic left kidney. Decompressed urinary bladder wall thickening. Atherosclerosis of the aorta and branch vessels with multifocal branch stenoses. Small hiatal hernia with distal esophageal wall thickening. Rectal varicosities. Circumferential wall thickening is noted throughout the majority of the rectum and sigmoid with mild adjacent inflammatory stranding. No acute fracture. IMPRESSION: 1. No bowel obstruction or pneumoperitoneum. 2. There is wall thickening of the majority of the large bowel and rectum which may represent a nonspecific proctocolitis. 3. Cholelithiasis. 4. Internal hemorrhoids. 5. Severely atrophic left kidney. 6. Additional findings as above. ACT 112: Negative or not required by law. The above report was generated using voice recognition software. It may contain grammatical, syntax or spelling errors. Electronically signed by: Liam Francis M.D. 07/20/2024 11:48 AM Code Status & VTE Plan Code Status Full - confirmed with patient VTE Prophylaxis Plan VTE Prophylaxis will be ordered: Yes Supervising Physician Co-Signing Physician Notes I personally saw and examined the patient. I independently reviewed the labs, EKG, imaging, problem list, medication list, past medical history and family history. I verified all matthews points and agree with Viri Posada PA-C with the following exceptions and/or additions: 88 year old female presents to the ER with ongoing dysuria and now a few days of diarrhea. O/E HS RRR, no murmurs, Chest CTAB, Abdo SNT, no CVA tenderness A/P UTI - ceftriaxone, follow up culture, prior ESBL although this was only one culture and not septic therefore no need to empirically treat for this. Note she was not given cefepime in the ER, this was cancelled prior to being given Pancolitis - suspected antibiotic associated, c. diff remains in differential but not clear enough picture to empirically treat, will await c. diff and stool PCR testing PG Care Time/CCT Total # of Minutes Spent Total Time Spent with Patient: Total time spent is greater than 50% in coordination of care (as documented) at patient's floor/unit and/or counseling patient: 77 minutes Coding Level of Care Code 23325 INT INP/OBS CARE 3/75MIN Diagnoses Acute UTI N39.0 Renal insufficiency N28.9 Pancolitis K51.00 Hypomagnesemia E83.42 Hyperbilirubinemia E80.6
--- NOTE | 2024-07-20 15:32 | Emergency Department Note ---
ED Visit Note I was consulted by the Advanced Practice Provider. I personally approved the management plan and take responsibility for the patient management. This includes the aspects of: -History/Physical/Personally seeing the patient -MDM -I independently interpreted the following studies:Studies and results .
[2024-07-20] MEDS: PHENAZOPYRIDINE HCL 200 MG TAB PO STA (17:34)
[2024-07-20] MEDS ORDERED: CARBOHYDRATES FOR HYPOGLYCEMIA PO PRN (18:03)
[2024-07-20] MEDS ORDERED: GLUCOSE 10 TAB/TUBE PO PRN (18:03)
[2024-07-20] MEDS ORDERED: MELATONIN 3 MG TAB PO PRN (18:03)
[2024-07-20] MEDS ORDERED: GLUCAGON FOR INJ 1 MG VIAL SQ PRN (18:03)
[2024-07-20] MEDS ORDERED: ALUMINUM/MAGNESIUM SUSP 30 ML UDC PO PRN (18:03)
[2024-07-20] MEDS ORDERED: DEXTROSE 50% 50 ML SYRINGE IV PRN (18:03)
[2024-07-20] MEDS ORDERED: GLUCOSE 40% GEL 15 GM TUBE PO PRN (18:03)
[2024-07-20] MEDS: SODIUM CHLORIDE 0.9% 1,000 ML IV SCH (18:46)
--- NOTE | 2024-07-20 18:49 | Electrocardiogram Report ---
Test Reason : Blood Pressure : */* mmHG Vent. Rate : 93 BPM Atrial Rate : 93 BPM P-R Int : 144 ms QRS Dur : 66 ms QT Int : 378 ms P-R-T Axes : 24 -10 31 degrees QTcB Int : 469 ms Normal sinus rhythm with sinus arrhythmia Minimal voltage criteria for LVH, may be normal variant possible Inferior infarct , age undetermined Abnormal ECG When compared with ECG of 04-Jun-2022 18:33, No significant change was found Confirmed by Camilo Wood ([id number]) on 07/20/2024 6:49:18 PM Referred By: REFERRED SELF Confirmed By: Camilo Wood
[2024-07-20] MEDS: METOPROLOL TARTRATE 50 MG TAB PO SCH (20:29)
[2024-07-20] MEDS: cefTRIAXone SODIUM 2,000 MG/50 ML BAG IV SCH (20:29)
[2024-07-20] MEDS: ENOXAPARIN INJ 40 MG/0.4 ML SYR SQ SCH (20:29)
[2024-07-21 00:57] LABS: Adenovirus F 40/41 PCR Not Detected (NotDetected); Astrovirus PCR Not Detected (NotDetected); Campylobacter PCR Not Detected (NotDetected); Cryptosporidium PCR Not Detected (NotDetected); Cyclospora cayetanensis PCR Not Detected (NotDetected); Entamoeba histolytica PCR Not Detected (NotDetected); Enteroaggregative E.coli(EAEC) Not Detected (NotDetected); Enteropathogenic E.coli (EPEC) Not Detected (NotDetected); Enterotoxigenic E.coli (ETEC) Not Detected (NotDetected); Giardia lamblia PCR Not Detected (NotDetected); Norovirus GI/GII PCR Not Detected (NotDetected); Plesiomonas shigelloides PCR Not Detected (NotDetected); Rotavirus A PCR Not Detected (NotDetected); Salmonella PCR Not Detected (NotDetected); Sapovirus PCR Not Detected (NotDetected); Shiga-like Toxin E.coli (STEC) Not Detected (NotDetected); Shigella/Enteroinvasive E.coli Not Detected (NotDetected); Vibrio cholerae PCR Not Detected (NotDetected); Vibrio species PCR Not Detected (NotDetected); Yersinia enterocolitica PCR Not Detected (NotDetected)
[2024-07-21 08:02] LABS: Basophils # (auto) 0.05 K/uL (0.00-0.20); Basophils % (auto) 0.6 %; Eosinophils # (auto) 0.13 K/uL (0.00-0.50); Eosinophils % (auto) 1.5 %; Hematocrit (blood only) 30.3 % (37.0-47.0); Hemoglobin 9.5 g/dl (12.0-16.0); Immature Granulocytes # (auto) 0.08 K/uL (0.01-0.20); Immature Granulocytes % (auto) 0.9 %; Lymphocytes # (auto) 1.62 K/uL (1.20-3.40); Lymphocytes % (auto) 18.7 %; Mean Corpuscular Hgb Conc 31.4 g/dL (32.0-36.0); Mean Corpuscular Volume 92.4 fL (80.0-100.0); Mean Platelet Volume 10.7 fL (9.4-12.4); Monocytes # (auto) 1.09 K/uL (0.11-0.59); Monocytes % (auto) 12.6 %; Neutrophils # (auto) 5.68 K/uL (1.40-6.50); Neutrophils % (auto) 65.7 %; Platelet Count 294 K/uL (130-400); RDW Coefficient of Variation 14.7 % (11.5-14.5); RDW Standard Deviation 50.1 fL (36.4-46.3); Red Blood Count 3.28 M/uL (4.20-5.40); White Blood Count 8.65 K/ul (4.8-10.8)
[2024-07-21] MEDS: ROSUVASTATIN CALCIUM 5 MG TAB PO SCH (08:16)
[2024-07-21] MEDS: CHOLECALCIFEROL 25 MCG (1000 UNITS) TAB PO SCH (08:16)
[2024-07-21] MEDS: GABAPENTIN 300 MG CAP PO SCH (08:16)
--- NOTE | 2024-07-21 08:16 | Hospitalist Progress Note ---
Date of Service July 21, 2024 Assessment & Plan (1) Acute UTI: Plan: Reported generalized weakness for several weeks, convinced by son to come to ER for evaluation Acute/recurrent with this being her 3rd UTI in the past 3 months. -->Had been given abx w/ Keflex for UTI on 06/05, Bactrim on 06/21 and both cx w/ klebsiella x 2 (resistant to Unasyn, nitrofurantoin) On admission, WBC 10.3k with left shift. Lactic 2.7--> 0.9 following 1L NSS on admission. Does report poor PO intake at baseline but does try and stay hydrated CTAP noting thickening of the majority of the large bowel and rectum which may represent a nonspecific proctocolitis. Cholelithiasis. Internal hemorrhoids. Severely atrophic left kidney. No bowel obstruction or pneumoperitoneum. Biofire/cdiff testing NEGATIVE given abx use Ordered dose Cefepime on admission but notable NOT GIVEN and instead placed on Ceftriaxone IV. NSS @ 80cc/hr for hydration given contrast w/ CT, 1gm IV mag for mag 1.5 . BUN/Cr 14/1.12 on repeat, tolerating PO intake and will STOP IVF given ordered x 3 bags to prevent overload. Anion gap closed Mag 1.5 and additional 2gm IV ordered and K 3.3 and additional 10meq with usual qam 10meq to be provided Will monitor repeat labs/electrolyte replacement as indicated but hopefully with normalization of magnesium potassium in normal range. Will add phos to AM labs/consult nutrition as well Did add procal to AM labs, blood cx x 1 but noting did get 1 dose IV Ceftriaxone and discussed with patient if repeat infection would recommend those be obtained prior to antibiotic therapy initiation but will monitor given prior bacteremia was resistant to CTX and will grow if any continued infection with that regard given bacteremia in May 2022 required carbapenem for treatment given ESBL/resistance and given repeat infections/not appearing to clear, ?underlying stone vs possible bacteremia Pyridium prn for spasm/dysuria w/ improvement and can continue as needed PT/OT consulted given weakness in elderly female with UTI to ensure no needs at dischrge DVT Proph: Lovenox SQ Monitor labs in AM At discharge, likely benefit from referral to Urology given recurrent UTIs/consideration for methenamine hippurate 1g q12h on d/c for UTI ppx (2) Renal insufficiency: Plan: BUN/Cr 19/1.21 on admission with anion gap 12, possible related to poor PO intake/infection as above IV abx for UTI, IVF provided but will discontinue further as given to prevent worsening KATY w/ contrast for CT as BUN/Cr improved 14/1.12 and dose not appear significantly dehydrated/able to tolerate PO intake with improvement in pain control from dysuria Renal dose meds/avoid nephrotoxins BMP in AM (3) Pancolitis: Plan: Noted on CTAP on admission Given repeat abx for UTI as above, obtained Cdiff testing which was NEGATIVE. Stool biofire/respiratory biofire negative BM x 2 overnight, added probiotic while on continued abx for above Monitor/repeat testing if any new/worsening diarrhea (4) Hypomagnesemia: Plan: LOW, suspect 2nd to POOR po intake/diarrheal losses on admission at 1.5 . Not on PPI at baseline s/p 1gm IV but only improved to 1.6 and ordered additonal 2gm IV and will continue to monitor/replete as needed. Suspect (5) Hyperbilirubinemia: Plan: TB elevated w/ noted cholelithiasis on CTAP on admission. ?related to infection as no RUQ pain and normalized with IVF/abx for UTI. LFTs normalized on repeat but will need to monitor for any RUQ pain/issues for further eval Plan Chronic medical issues: 1. HTN - controlled, continue metoprolol tartrate 2. HLD - continue crestor 3. Peripheral neuropathy - gabapentin continued 300mg daily. given on metformin and prior B12 borderline in 2021 not on supplementation will check w/ AM labs 4. DMT2 - hold metformin. diabetic diet ordered. Accuchecks ordered, add short acting coverage with meals if BSG >180 Dispo: continued inpatient stay on IV abx, monitor final urine cx (and added blood culture). PT/OT consults pending DVT proph: Lovenox SQ ordered while inpatient (monitor w/ renal function if any issues can switch) Admission and Anticipated Discharge Date Admission Date: July 20, 2024 Supervising Physician Co-Signing Physician Notes The patient was not seen by me. The chart was reviewed. Case discussed with JOHN Howard. Agree with assessment and plan Subjective Evaluated this morning, resting in bed. Reports feeling better than on admission, less suprapubic pain/burning. Loose stools x 2 overnight, cdiff to be collected given antibiotics for recent infections but discussed obtaining blood cultures but if not positive and having any repeat infection would please request cultures prior to repeat antibiotics. Will add probiotic in the meantime. Discussed mag/K replacement. She inquires what is causing repeat infections -- did discuss has poor PO intake despite her efforts, but has been having. Physical Exam 2 Physical Exam: General: 88 yo female resting in bed, NAD, reports feeling better than yesterday HEENT: head atraumatic, normocephalic, mm slightly dry but improved, trachea midline Resp: even/unlabored, slightly diminished in the bases, no w/c/r, on room air CV: RRR, no significant m/r/g, no LE edema/calf tenderness GI: +BS, soft but slight distension, +suprapubic discomfort reported improved MSK/Neuro: generalized weakness but nonfocal and answering questions appropriately, moving all extremities, nonfocal Psych: AOx3, cooperative with exam Results & Data Results & Data Vital Signs (Past 12 Hours) Vital Signs Temp Pulse Resp BP Pulse Ox O2 Del Method 07/21/24 07:52 36.7 C 69 16 149/78 H 96 Room Air 07/20/24 20:42 36.8 C 89 18 151/78 H 92 Room Air 07/20/24 20:30 Room Air Laboratory Results 07/21/24 07:27 07/21/24 07:27 Mag 1.5 TB 0.6 AST 24 ALT 17 ALP 50 Albumin 3.0 Procalcitonin pending Lactic 2.7--> 0.9 Diagnostic Findings Chest X-Ray 07/20/24 09:54 XR chest 1V portable HISTORY: 88 years-old Female weakness COMPARISON: 06/04/2022 TECHNIQUE: AP view of the chest FINDINGS: Cardiomediastinal and hilar silhouettes are within normal limits. Atherosclerosis of the aorta. No pneumothorax, pleural effusion or airspace consolidation. Bones appear grossly intact. IMPRESSION: No acute process. ACT 112: Negative or not required by law. The above report was generated using voice recognition software. It may contain grammatical, syntax or spelling errors. Electronically signed by: Liam Francis M.D. 07/20/2024 10:30 AM Abdomen/Pelvis CT 07/20/24 10:[address] WITH IV CONTRAST CT DOSE: 868.75 mGy.cm HISTORY: Acute upper quadrant abdominal pain ruq pain TECHNIQUE: Multiaxial CT images of the abdomen and pelvis were performed following the IV administration of 94 cc of Optiray, A dose lowering technique was utilized adhering to the principles of ALARA. COMPARISON STUDY: None. FINDINGS: Mild bibasilar atelectasis. No free air. 6 mm age-indeterminate, perisplenic collection posteriorly. Atrophic pancreas. Unremarkable adrenal glands. Cholelithiasis without evidence of acute cholecystitis. Unremarkable liver. The cortical thickening of the right kidney with subcentimeter indeterminate hypodense lesions in, likely cysts. Severely atrophic left kidney. Decompressed urinary bladder wall thickening. Atherosclerosis of the aorta and branch vessels with multifocal branch stenoses. Small hiatal hernia with distal esophageal wall thickening. Rectal varicosities. Circumferential wall thickening is noted throughout the majority of the rectum and sigmoid with mild adjacent inflammatory stranding. No acute fracture. IMPRESSION: 1. No bowel obstruction or pneumoperitoneum. 2. There is wall thickening of the majority of the large bowel and rectum which may represent a nonspecific proctocolitis. 3. Cholelithiasis. 4. Internal hemorrhoids. 5. Severely atrophic left kidney. 6. Additional findings as above. ACT 112: Negative or not required by law. The above report was generated using voice recognition software. It may contain grammatical, syntax or spelling errors. Electronically signed by: Liam Francis M.D. 07/20/2024 11:48 AM PG Care Time/CCT Total # of Minutes Spent Total Time Spent with Patient: Total time spent is greater than 50% in coordination of care (as documented) at patient's floor/unit and/or counseling patient: Coding Level of Care Code 20419 SUB INP/OBS CARE 3/50MIN Diagnoses Acute UTI N39.0 Renal insufficiency N28.9 Pancolitis K51.00 Hypomagnesemia E83.42 Hyperbilirubinemia E80.6
[2024-07-21] MEDS: POTASSIUM CHLORIDE 10 MEQ TABCR PO SCH (08:19)
[2024-07-21 08:21] LABS: Estimated Average Glucose 146 mg/dl; Hemoglobin A1C 6.7 % (4.5-5.6)
[2024-07-21 08:39] LABS: BUN Creatinine Ratio 12.5 (10-20); Bilirubin Direct 0.1 mg/dl (0-0.2); Bilirubin,Total 0.6 mg/dl (0.2-1.0); Calcium 8.1 mg/dl (8.6-10.3); Creatinine Clr Calc Pharmacy 33.8 ml/min; Magnesium 1.5 mg/dl (1.7-2.4); Potassium 3.3 mmol/L (3.5-5.1); Total Protein 5.6 gm/dl (6.0-8.3)
[2024-07-21] MEDS: MAGNESIUM SULFATE / D5W 1 GM/100 ML BAG IV SCH (09:36)
[2024-07-21] MEDS: POTASSIUM CHLORIDE 10 MEQ TABCR PO STA (09:36)
[2024-07-21] MEDS: ADVANCED PROBIOTIC 625 MG CAPSULE PO SCH (12:50)
[2024-07-21] MEDS: FAMOTIDINE 10 MG TABLET PO SCH (20:32)
[2024-07-22 07:34] LABS: Hematocrit (blood only) 35.8 % (37.0-47.0); Hemoglobin 10.9 g/dl (12.0-16.0); Mean Corpuscular Hemoglobin 29.1 pg (25.0-34.0); Mean Corpuscular Hgb Conc 30.4 g/dL (32.0-36.0); Mean Corpuscular Volume 95.5 fL (80.0-100.0); Mean Platelet Volume 10.4 fL (9.4-12.4); Platelet Count 358 K/uL (130-400); RDW Coefficient of Variation 14.6 % (11.5-14.5); RDW Standard Deviation 51.4 fL (36.4-46.3); Red Blood Count 3.75 M/uL (4.20-5.40); White Blood Count 7.45 K/ul (4.8-10.8)
[2024-07-22 07:54] LABS: BUN Creatinine Ratio 15.5 (10-20); Calcium 8.8 mg/dl (8.6-10.3); Creatinine Clr Calc Pharmacy 36.7 ml/min; Magnesium 1.9 mg/dl (1.7-2.4); Phosphorus 2.6 mg/dl (2.5-4.9); Potassium 3.6 mmol/L (3.5-5.1)
[2024-07-22] MEDS: ACETAMINOPHEN 325 MG TAB PO PRN (08:25)
--- NOTE | 2024-07-22 08:55 | Hospitalist Progress Note ---
Date of Service July 22, 2024 Assessment & Plan (1) Acute UTI: Plan: Reported generalized weakness for several weeks, convinced by son to come to ER for evaluation, poor PO intake at baseline despite efforts to stay hydrated per patient, also suspect diarrheal losses contributing given Mag 1.5 Acute/recurrent with this being her 3rd UTI in the past 3 months -Had been given abx w/ Keflex for UTI on 06/05, Bactrim on 06/21 and both cx w/ klebsiella x 2 (resistant to Unasyn, nitrofurantoin). --Hx bacteremia May 2022 req carbapenem for tx given ESBL/resistance WBC 10.3k with left shift. Lactic 2.7--> 0.9 s/p 1L NSS CTAP noting thickening of the majority of the large bowel and rectum which may represent a nonspecific proctocolitis. Cholelithiasis. Internal hemorrhoids. Severely atrophic left kidney. No bowel obstruction or pneumoperitoneum. --> Biofire/cdiff testing NEGATIVE given abx use. Ceftriaxone 2gm IV daily (on day 3 of therapy). Probiotic added while on abx. Urine cx noting Klebsiella, resistance to Unasyn (?but sensitive to Augmentin) and intermediate to cefazolin Blood culture x 1 given already given abx, NGTD x 24 hrs but should have drawn in future prior to abx given hx bacteremia given repeat infections. Procal added, 0.11 (prior bacteremia w/ procal elevation to 7) Continue CTX 2gm for now--> can convert to PO abx to complete course 07/23 if Bcx NGTD x 48 hours Mag and potassium now wnl, improvement in PO intake. IVF discontinued 07/21 as ordered 3 bags to prevent overload. Appears improved hydration with tx UTI with stable BUN/Cr Pyridium as needed for pain/dysuria PT/OT consults pending DVT Proph: Lovenox SQ Hopeful dc 07/23 on PO abx pending therapy evals but ?if needing rehab pending recs (2) Renal insufficiency: Plan: BUN/Cr 19/1.21 on admission, anion gap 12. IVF hydration, abx for UTI DC IVF 07/21 as above. BUN/Cr stable on repeat with improvement in PO intake Renal dose meds/avoid nephrotoxins, renal dose PO abx as needed at dc Monitor BMP (3) Pancolitis: Plan: Noted on CTAP on admission BM x 2- --> checked biofire/cdiff given abx use. NEGATIVE. Added probiotic on abx and reports decreased diarrhea but to alert if any worsening on abx. Plan to transition to PO abx in AM. LFT wnl (4) Hypomagnesemia: Plan: LOW 1.5 on admission - suspected 2nd to poor PO intake/diarrhea as above and not on PPI at baseline Replacement ordered, repeat dosing 07/21 and normal on AM labs today with normalization of potassium and will monitor electrolytes/replacement as indicated but improvement in PO intake/decreased diarrhea as above (5) Hyperbilirubinemia: Plan: TB elevated w/ noted cholelithiasis on CTAP on admission. ?related to infection as no RUQ pain and normalized with IVF/abx for UTI. LFTs normalized on repeat but will need to monitor for any RUQ pain/issues for further eval Plan Chronic medical issues: 1. HTN - controlled, continue metoprolol tartrate 2. HLD - continue crestor 3. Peripheral neuropathy - gabapentin continued 300mg daily. given on metformin and prior B12 borderline in 2021 not on supplementation will check w/ AM labs 4. DMT2 - hold metformin. diabetic diet ordered. Accuchecks ordered, add short acting coverage with meals if BSG >180 5. Left shoulder pain - fell ~4 months ago, no bony step off, ?OA. Lidocaine patch added. Therapy consults in place. Tylenol as needed Dispo: continued inpatient stay on IV abx and plan to convert to PO in AM if blood cultures remain without growth DC pending final therapy evals if able to go home vs needing short inpatient rehab stay. CM to follow Admission and Anticipated Discharge Date Admission Date: July 20, 2024 Supervising Physician Co-Signing Physician Notes The patient was not seen by me. The chart was reviewed. Case discussed with JOHN Howard. Agree with assessment and plan Subjective Evaluated this morning, sitting up in bed. Feeling much better today. Had some burning this morning but improved from prior, will have RN give dose Pyridium. Electrolytes improved/stable, improvement in oral intake/dehydration status. Moved bowels overnight, no significant diarrhea and reports better. Had fallen several months ago and discomfort to her left shoulder, improved with some tylenol and reports had imaging that was negative in the past but having some discomfort. Waiting therapy evals, will add lidocaine patch for additional relief/monitor. To alert if any worsening/issues. No fever/chills, no chest pain/shortness of breath, nausea/vomiting. Questions/concerns addressed at this time. Physical Exam 2 Physical Exam: General: 88 yo female resting in bed, NAD, reports feeling better than yesterday, kitchen staff taking order for dinner HEENT: head atraumatic, normocephalic, mm IMPROVED, trachea midline Resp: even/unlabored, slightly diminished in the bases, no w/c/r, on room air CV: RRR, no significant m/r/g, no LE edema/calf tenderness GI: +BS, soft but slight distension (decreased), +suprapubic discomfort IMPROVED MSK/Neuro: generalized weakness but nonfocal and answering questions appropriately, moving all extremities, nonfocal Psych: AOx3, cooperative with exam Results & Data Results & Data Vital Signs (Past 12 Hours) Vital Signs Temp Pulse Resp BP Pulse Ox O2 Del Method 07/22/24 07:14 36.5 C 66 18 133/64 96 Room Air Laboratory Results 07/22/24 06:58 07/22/24 06:58 Mag 1.9 BNP 286 PG Care Time/CCT Total # of Minutes Spent Total Time Spent with Patient: Total time spent is greater than 50% in coordination of care (as documented) at patient's floor/unit and/or counseling patient: Coding Level of Care Code 36580 SUB INP/OBS CARE 3/50MIN Diagnoses Acute UTI N39.0 Renal insufficiency N28.9 Pancolitis K51.00 Hypomagnesemia E83.42 Hyperbilirubinemia E80.6
[2024-07-22] MEDS: PHENAZOPYRIDINE HCL 100 MG TAB PO PRN (10:16)
[2024-07-22] MEDS: LIDOCAINE 5% 1 PATCH TD SCH (11:34)
[2024-07-22] MEDS: CYANOCOBALAMIN (B-12) 500 MCG TABLET PO SCH (12:31)
--- NOTE | 2024-07-22 16:16 | Communication Note ---
Date of Service: July 22, 2024 Do note on review of patient's home medications in 88yo female with hx balance issues -- did check B12/borderline and PO replacement started and will plan to continue at [place] as on metformin once daily for hx DM. Did trial jardiance in past but too expensive however given patient w/ frequent/recurrent UTIs suspect NOT best medication for her for DM control. Is also on metoprolol tartrate 50mg BID for HTN, but given hx DM suspect probably better off on MATHEW/ARB and could help with her issues w/ potassium as on daily supplementation. No prior hx afib and TSH wnl x 3 in system in the past but given variability in HR in system with documented values 50s and 90s will discuss with patient given no reported palpitations to myself or PCP per notes about consideration for holter monitor at discharge to eval for any underlying arrhythmia/tachybrady but given without complaints at present time no need to move to monitored bed and has been longstanding issue. EKGs in system with sinus tachycardia as well as sinus bradycardia and suspect would benefit from at least event monitor to ensure no issues/referral to cards needed. Do not see any prior ECHO in system but no significant murmur/LE edema or hypoxia at this time and remains with [id number]% Again, will continue current medications as ordered per home medications but will further discuss with patient/recommend discussing about switching from metoprolol to mathew/arb to prevent hypotension/bradycardia and falls in elderly female patient.
[2024-07-22 19:43] VITALS: RESP 16; TEMP 97.9
[2024-07-23 07:41] VITALS: BP 121/68; PULSE 67; O2SAT 97
[2024-07-23 08:32] LABS: Calcium 8.6 mg/dl (8.6-10.3); Magnesium 1.7 mg/dl (1.7-2.4); Potassium 3.4 mmol/L (3.5-5.1)
--- NOTE | 2024-07-23 08:33 | Hospitalist Progress Note ---
Date of Service July 23, 2024 Assessment & Plan (1) Acute UTI: Plan: Reported generalized weakness for several weeks, convinced by son to come to ER for evaluation, poor PO intake at baseline despite efforts to stay hydrated per patient, also suspect diarrheal losses contributing given Mag 1.5 Acute/recurrent with this being her 3rd UTI in the past 3 months -Had been given abx w/ Keflex for UTI on 06/05, Bactrim on 06/21 and both cx w/ klebsiella x 2 (resistant to Unasyn, nitrofurantoin). --Hx bacteremia May 2022 req carbapenem for tx given ESBL/resistance WBC 10.3k with left shift. Lactic 2.7--> 0.9 s/p 1L NSS CTAP noting thickening of the majority of the large bowel and rectum which may represent a nonspecific proctocolitis. Cholelithiasis. Internal hemorrhoids. Severely atrophic left kidney. No bowel obstruction or pneumoperitoneum. --> Biofire/cdiff testing NEGATIVE given abx use. Ceftriaxone 2gm IV daily (on day 3 of therapy). Probiotic added while on abx. Urine cx noting Klebsiella, resistance to Unasyn (?but sensitive to Augmentin) and intermediate to cefazolin Blood culture x 1 given already given abx, NGTD x 24 hrs but should have drawn in future prior to abx given hx bacteremia given repeat infections. Procal added, 0.11 (prior bacteremia w/ procal elevation to 7) Continue CTX 2gm for now--> can convert to PO abx to complete course 07/23 if Bcx NGTD x 48 hours Mag and potassium now wnl, improvement in PO intake. IVF discontinued 07/21 as ordered 3 bags to prevent overload. Appears improved hydration with tx UTI with stable BUN/Cr Pyridium as needed for pain/dysuria PT/OT consults pending DVT Proph: Lovenox SQ Hopeful dc 07/23 on PO abx pending therapy evals but ?if needing rehab pending recs 07/23 - K 3.4, additional 10meq provided. 1gm IV mag for 1.7 and will start once daily slow mag/consider continuing at dc - PT/OT consulted, recs for home with home health (2) Renal insufficiency: Plan: BUN/Cr 19/1.21 on admission, anion gap 12. IVF hydration, abx for UTI DC IVF 07/21 as above. BUN/Cr stable on repeat with improvement in PO intake Renal dose meds/avoid nephrotoxins, renal dose PO abx as needed at dc Monitor BMP (3) Pancolitis: Plan: Noted on CTAP on admission BM x 2- --> checked biofire/cdiff given abx use. NEGATIVE. Added probiotic on abx and reports decreased diarrhea but to alert if any worsening on abx. Plan to transition to PO abx in AM. LFT wnl (4) Hypomagnesemia: Plan: LOW 1.5 on admission - suspected 2nd to poor PO intake/diarrhea as above and not on PPI at baseline Replacement ordered, repeat dosing 07/21 and normal on AM labs today with normalization of potassium and will monitor electrolytes/replacement as indicated but improvement in PO intake/decreased diarrhea as above (5) Hyperbilirubinemia: Plan: TB elevated w/ noted cholelithiasis on CTAP on admission. ?related to infection as no RUQ pain and normalized with IVF/abx for UTI. LFTs normalized on repeat but will need to monitor for any RUQ pain/issues for further eval (6) Hypertension: Plan: Do note on review of patient's home medications in 88yo female with hx balance issues -- did check B12/borderline and PO replacement started and will plan to continue at dc as on metformin once daily for hx DM. Did trial jardiance in past but too expensive however given patient w/ frequent/recurrent UTIs suspect NOT best medication for her for DM control. Is also on metoprolol tartrate 50mg BID for HTN, but given hx DM suspect probably better off on MATHEW/ARB and could help with her issues w/ potassium as on daily supplementation. No prior hx afib and TSH wnl x 3 in system in the past but given variability in HR in system with documented values 50s and 90s will discuss with patient given no reported palpitations to myself or PCP per notes about consideration for holter monitor at discharge to eval for any underlying arrhythmia/tachybrady but given without complaints at present time no need to move to monitored bed and has been longstanding issue. EKGs in system with sinus tachycardia as well as sinus bradycardia and suspect would benefit from at least event monitor to ensure no issues/referral to cards needed. Do not see any prior ECHO in system but no significant murmur/LE edema or hypoxia at this time and remains with [id number]% Again, will continue current medications as ordered per home medications but will further discuss with patient/recommend discussing about switching from metoprolol to mathew/arb to prevent hypotension/bradycardia and falls in elderly female patient. Plan Chronic medical issues: 1. HTN - controlled, continue metoprolol tartrate 2. HLD - continue crestor 3. Peripheral neuropathy - gabapentin continued 300mg daily. given on metformin and prior B12 borderline in 2021 not on supplementation will check w/ AM labs 4. DMT2 - hold metformin. diabetic diet ordered. Accuchecks ordered, add short acting coverage with meals if BSG >180 5. Left shoulder pain - fell ~4 months ago, no bony step off, ?OA. Lidocaine patch added. Therapy consults in place. Tylenol as needed Dispo: continued inpatient stay on IV abx and plan to convert to PO in AM if blood cultures remain without growth DC pending final therapy evals if able to go home vs needing short inpatient rehab stay. CM to follow Admission and Anticipated Discharge Date Admission Date: July 20, 2024 Results & Data Results & Data Vital Signs (Past 12 Hours) Vital Signs Temp Pulse Resp BP Pulse Ox O2 Del Method 07/23/24 07:40 36.6 C 67 16 121/68 97 Room Air PG Care Time/CCT Total # of Minutes Spent Total Time Spent with Patient: Total time spent is greater than 50% in coordination of care (as documented) at patient's floor/unit and/or counseling patient: Coding Diagnoses Acute UTI N39.0 Renal insufficiency N28.9 Pancolitis K51.00 Hypomagnesemia E83.42 Hyperbilirubinemia E80.6 Hypertension I10
[2024-07-23] MEDS: POTASSIUM CHLORIDE 10 MEQ TABCR PO STA (09:24)
[2024-07-23] MEDS: MAGNESIUM SULFATE / D5W 1 GM/100 ML BAG IV ONE (09:25)
[2024-07-23] MEDS: MAGNESIUM CHLORIDE W/CALCIUM 64MG DELAYED REL TAB PO SCH (10:17)
--- NOTE | 2024-07-23 11:13 | Discharge Summary ---
Discharge Summary Date of Service July 23, 2024 Principal Dx & Hospital Course #1 = Principal Diagnosis (1) Acute UTI: Reported generalized weakness for several weeks, convinced by son to come to ER for evaluation, poor PO intake at baseline despite efforts to stay hydrated per patient also suspect diarrheal losses contributing given Mag 1.5 Acute/recurrent with this being her 3rd UTI in the past 3 months -Had been given abx w/ Keflex for UTI on 06/05, Bactrim on 06/21 and both cx w/ klebsiella x 2 (resistant to Unasyn, nitrofurantoin). -Hx bacteremia May 2022 req carbapenem for tx given ESBL/resistance. Blood cultures obtained but did get dose of Ceftriaxone IV prior and discussed with patient if develops repeat sx/infection would obtain prior. NGTD x 48 hours. WBC not elevated but was borderline with L shift, lactic 2.7--> improved/norm alized 0.9 s/p 1L NSS CTAP noting nonspecific proctocolitis, cdiff/biofire NEGATIVE as obtained given recent abx use Provided with Ceftriaxone 2gm IV daily x 3 days and transitioning to BACTRIM for additional 4 days to complete course given urine cx w/ Klebsiella resistance to Unasyn (?but sensitive to Augmentin) and intermediate to cefazolin and instructed to f/u with PCP if needing extended. Encouraged adequate hydration, much improved and diarrhea slowed. Suspect some decreased PO intake with now in placement and possible some underlying depression but mood appeared stable and wanting to go home. Mag /k improved with decreased diarrhea and replacement however slightly low and additional repalcement ordered prior to dc. Did send rx for slow mag given lows to ensure K remaining stable on her 10meq daily dosing. WBC remained wnl and was without fever. Did use Pyridium for spasm/pains from dysuria and was effective and given rx for such at discharge. No stones noted but ? if continued issues Planning for dc this afternoon when ride available, urology referral placed for at discharge given repeat infections and did send rx for methenamine hippurate to discuss with PCP in follow up to start for proph once completing her course of abx. Encouraged continued PO intake/hydration to prevent onoging issues at dc. PT/OT consulted and rec'd to be able to return home with family support. (2) Renal insufficiency: Cr 1.2 on admission, IVF/hydration provided with normalization on repeat and discontinued BUN/Cr 22/1.05 prior to dc off IVF for >24 hours and improvement in PO intake reported. Encouraged continued PO inake/hydration Meds renally dosed/avoided nephrotoxins while inpatient F/u PCP, urology as outlined (3) Pancolitis: Noted on CTAP on admission BM x 2- --> checked biofire/cdiff given abx use. --> testing NEGATIVE. Added probiotic on abx and reports decreased diarrhea, can continue while on abx To alert if any worsened diarrhea on abx (4) Hypomagnesemia: LOW 1.5 on admission - suspected 2nd to poor PO intake/diarrhea as above and not on PPI at baseline and replacement ordered/normalized on repeat but 1.7 prior to discharge and decision to start once daily SLOW mag to keep stores replete/prevent worsened hypokalemia and is on 10meq daily at baseline. Additional 10meq provided for K 3.4 to prevent overcorrection as sending on PO Bactrim to complete course for UTI (5) Hyperbilirubinemia: TB elevated w/ noted cholelithiasis on CTAP on admission. ?related to infection as no RUQ pain and normalized with IVF/abx for UTI. LFTs normalized on repeat and no RUQ pain on exam (6) Hypertension: BPs stable, remained on metoprolol tartrate BID Given hx DM suspect probably better off on MATHEW/ARB and could help with her issues w/ potassium as on daily supplementation. No prior hx afib and TSH wnl x 3 in system in the past but given variability in HR in system with documented values 50s and 90s will discuss with patient given no reported palpitations (confirmed again today 07/23 no palpitations symptoms c/w tachy/marques) however to consider Holter/monitor w/ PCP vs trial switching to MATHEW/ARB for BP control to prevent falls in elderly patient w/ underlying DM Plan Chronic medical issues: 1. HTN - controlled, continue metoprolol tartrate. As above, f/u PCP about considering MATHEW/ARB for DM over BB therapy 2. HLD - continued crestor 3. Peripheral neuropathy - gabapentin continued 300mg daily. given on metformin and prior B12 borderline in 2021 not on supplementation will check w/ AM labs and was borderline 286 and rx for PO supplementation sent 4. DMT2 - hold metformin. diabetic diet ordered. Accuchecks ordered, add short acting coverage with meals if BSG >180 5. Left shoulder pain - fell ~4 months ago, no bony step off, ?OA. Lidocaine patch added. Therapy consults in place. Tylenol as needed with stable exam and can continue As above, consideration for event monitor in f/u with PCP Dispo: dc on Bactrim to complete course Notes For Next Care Provider Consideration to extend PO Bactrim another 3 days if needed Consider switching metoprolol to MATHEW/ARB, ?review of HR in systems with low/highs, consideration for event monitor however patient asymptomatic/no palpitations reported however do have EKGs in system w/ sinus tachy/marques in the past and did have reported fall on her L shoulder several months ago and could be considered Consideration to discuss/have patient start methenamine hippurate 1g BID for UTI proph. Did send rx for patient and arranging Urology f/u but instructed to discuss before taking Medication Changes From Visit Bactrim 1 tablet BID x 4 more days Pyridium prn Slow magnesium w/ ca for ongoing hypomagnesemia/hypokalemia issues to help with prevention of hypokalemia/weakness Pepcid daily for GI proph/reflux B12 1000mcg daily methenamine hippurate 1gm BID (to start once discussed/finished with PO Bactrim for UTI prevention) Admission HPI Per Admitting Provider Janis is an 88 yo F with a pmhx of HLD, HTN, NIDDM, gout, congenital neo itary functioning kidney and peripheral neuropathy who presents to the ER today c/o generalized weakness. She reports that this has been going on for the past few weeks but today her son came to the house and convinced her to seek evaluation in the ER. She endorses dysuria and frequency for the past few days in addition to watery diarrhea. She denies hematochezia or melena. She denies abdominal pain, fever, chills, nausea or vomiting. She reports poor oral intake. She has recently been treated twice for UTIs in the past 3 months, once in May and once in June of this year, both with klebsiella. Her work up in the ER today demonstrated a grossly infected appearing UA, normal wbc count, afebrile and otherwise hemodynamically stable. She is noted to have some renal insufficiency with a creatinine of 1.2 which is slightly above her baseline of 1.0. She has a mag of 1.2 and a total bilirubin of 1.6. Remaining LFTs normal. Her biofire was negative. She underwent CTAP and is noted to have bladder wall thickening in addition to pancolitis and cholelithiasis. She was treated with a dose of IV cefepime 1g x1, one liter of NSS, and a dose of Mag sulfate 1gx1. She is currently living alone as her was recently [facility] a jail. She has been referred for admission to the hospital medicine team. Admission Exam Per Admitting Provider GENERAL: 88 yo well-nourished elderly F. NAD. EYES: EOMI. PERRLA. Anicteric. HENT: Moist mucous membranes. No scleral icterus. No cervical lymphadenopathy. LUNGS: Clear to auscultation bilaterally. No W/R/R. CARDIOVASCULAR: Regular rate and rhythm. ABDOMEN: Soft, non-tender and non-distended. BS normoactive x 4 quad. -CVA tenderness. EXTREMITIES: No edema. Non-tender. Peripheral pulses +2/4. NEUROLOGIC: A&O x3. No focal neurological deficits. CN II-XII grossly intact. PSYCHIATRIC: Cooperative. Appropriate mood and affect. SKIN: Warm, dry, intact. No rashes or lesions. Discharge Exam General: 88 yo female sitting up in bed, appears much improved/wanting to go home if possible, NAD HEENT: head atraumatic, normocephalic, mm IMPROVED, trachea midline Resp: even/unlabored, no w/c/r, on room air 97% CV: RRR, no significant m/r/g, no LE edema/calf tenderness GI: +BS, soft, slight distension but improved, no significant tenderness, some suprapubic tenderness but significantly improved. MSK/Neuro: generalized weakness but nonfocal and answering questions appropriately, moving all extremities, nonfocal Psych: AOx3, cooperative with exam Discharge Plan Discharge Items Patient Disposition: Home - Home Health Services Reason For Visit: WEAKNESS, UTI, PANCOLITIS Discharge Diagnosis: Urinary Tract Infection Goals: You have been hospitalized for an acute medical problem. During your stay at [facility], we have made an effort to correct the problem that brought you to the hospital while keeping you as comfortable as possible. Medications were used to bring your condition under control and your discharge instructions will include directions for any medications you should take after leaving the hospital. Please make sure you see your Primary Care Provider as part of your follow up plan. Activity: As commented below Non-emergency contact: Primary Care Provider and Urologist Call non-emergency contact if: you have any medication questions, your symptoms worsen and your pain is not controlled Follow-up/Referrals: Jyoti Cornejo MD [Primary Care Provider] - 07/31/24 2:00 pm (Appointment will be with ) Elvin Bonner MD [Physician] - Diet: Carb Consistent or DM2 and Heart Healthy Addtl Attending Provider Instructions: You have been hospitalized for weakness and fatigue and found to have urinary tract infection. Cultures were obtained and you were provided with IV antibiotics and cultures showed klebsiella. You received 3 days of IV antibiotics and you are being sent home on bactrim one tablet twice daily for another 4 days. You also had low potassium and magnesium which are likely due to poor oral intake as well as diarrhea and replacement has been provided and normalized on repeat testing. You should continue to stay hydrated at discharge and drink 6-8 glasses of fluid daily to prevent dehydration which can cause UTIs. Pyridium has been used for bladder spasm/burning with urination and has been sent at discharge to use as needed up to three times daily. You may benefit from the addition of Premarin cream if dryness is an issue which can help as well and we are arranging for outpatient follow up referral to Urology for ongoing management/recommendations such as methenamine hippurate 1g by mouth twice daily which can be taken to prevent urinary tract infections. We have sent a prescription for this once finished your antibiotics and can follow up with primary care/urology for discussion prior to starting if desired. We did have therapy evaluate you while inpatient to ensure safe to return home and recommendations are for home health at discharge. I did send your primary care provider a message about your metoprolol use for your blood pressure and to follow up discussions about a possible Holter monitor given your heart rate does have fluctuations and can obtain monitor to ensure not having fast/slow rates that can contribute to falls and to consider if you are/are not having these issues to consider switching your metoprolol to medication like lisinopril/losartan given underlying diabetes which may be a better medication for you to prevent falls. Please follow up with primary care in the next 7-10 days after discharge to monitor your progress after hospitalization. Please return to the ER with any fever/chills, chest pain, shortness of breath, increased weakness, inability to keep up with oral hydration or for any other symptoms concerning for you. It has been a pleasure being a part of the medical team providing for you while you have been in the hospital. Take care! Pending Studies at Discharge: Yes Studies:: Blood cultures -- no growth to date at 48hours Stand-Alone Forms: My [facility], Smoking Cessation Medications and DC Order Prescriptions: New methenamine hippurate 1 gram tablet 1 g PO BID Qty: 60 0RF Rx Instructions: do not take until antibiotic therapy completed for UTI magnesium chloride [Mag 64] 64 mg Tablet,Delayed Release (Dr/Ec) 64 mg PO QAM Qty: 30 0RF sulfamethoxazole-trimethoprim [Bactrim DS] 800-160 mg tablet 1 tab PO BID 4 Days Qty: 8 0RF famotidine [Acid Public Health Clinical Nurse Specialist (famotidine)] 10 mg Tablet 10 mg PO QAM Qty: 30 0RF cyanocobalamin (vitamin B-12) 500 mcg Tablet 500 mcg PO QAM Qty: 30 0RF phenazopyridine [Pyridium] 100 mg Tablet 100 mg PO TID PRN (Reason: bladder spasms or pain) Qty: 20 0RF Continued metformin 500 mg tablet extended release 24 hr 500 mg PO DAILY 90 Days Qty: 90 3RF metoprolol tartrate 50 mg tablet 50 mg PO BID Qty: 180 3RF potassium chloride 10 mEq tablet extended release 10 meq PO DAILY Qty: 90 3RF rosuvastatin 5 mg tablet 5 mg PO DAILY 90 Days Qty: 90 3RF cholecalciferol (vitamin D3) 2,000 unit tablet 2,000 units PO DAILY gabapentin 300 mg capsule 300 mg PO DAILY Qty: 90 3RF multivitamin Tablet 1 tab PO DAILY doxycycline hyclate 50 mg capsule 50 mg PO BID 30 Days Qty: 60 2RF calcium carbonate-vitamin D3 [Calcium 600 + D(3)] 600 mg-10 mcg (400 unit) Tablet 1 tab PO DAILY Discontinued sulfamethoxazole-trimethoprim [Bactrim DS] 800-160 mg tablet 1 tab PO BID 10 Days Qty: 20 0RF Discharge Orders: Discharge Order (Routine); Ordered 07/23/24 Ordered By: Marleni Velasquez/Other Patient Handouts: Type 2 Diabetes Admission Data Admit Date/Time: 07/20/24 13:18 Attending Provider: Godfrey Levy Admit Provider: Dany Ta Primary Care Provider: Jyoti Cornejo Other Providers: Dany Ta Hospital Stay Data Consultations 07/20/24 16:05 ED Decision to Admit Stat 07/22/24 16:11 Consult [facility] skin former Routine Diagnostic Imagining Performed Chest X-Ray 07/20/24 09:54 XR chest 1V portable HISTORY: 88 years-old Female weakness COMPARISON: 06/04/2022 TECHNIQUE: AP view of the chest FINDINGS: Cardiomediastinal and hilar silhouettes are within normal limits. Atherosc lerosis of the aorta. No pneumothorax, pleural effusion or airspace consolidation. Bones appear grossly intact. IMPRESSION: No acute process. ACT 112: Negative or not required by law. The above report was generated using voice recognition software. It may contain grammatical, syntax or spelling errors. Electronically signed by: Liam Francis M.D. 07/20/2024 10:30 AM Abdomen/Pelvis CT 07/20/24 10:[address] WITH IV CONTRAST CT DOSE: 868.75 mGy.cm HISTORY: Acute upper quadrant abdominal pain ruq pain TECHNIQUE: Multiaxial CT images of the abdomen and pelvis were performed following the IV administration of 94 cc of Optiray, A dose lowering technique was utilized adhering to the principles of ALARA. COMPARISON STUDY: None. FINDINGS: Mild bibasilar atelectasis. No free air. 6 mm age-indeterminate, perisplenic collection posteriorly. Atrophic pancreas. Unremarkable adrenal glands. Cholelithiasis without evidence of acute cholecystitis. Unremarkable liver. The cortical thickening of the right kidney with subcentimeter indeterminate hypodense lesions in, likely cysts. Severely atrophic left kidney. Decompressed urinary bladder wall thickening. Atherosclerosis of the aorta and branch vessels with multifocal branch stenoses. Small hiatal hernia with distal esophageal wall thickening. Rectal varicosities. Circumferential wall thickening is noted throughout the majority of the rectum and sigmoid with mild adjacent inflammatory stranding. No acute fracture. IMPRESSION: 1. No bowel obstruction or pneumoperitoneum. 2. There is wall thickening of the majority of the large bowel and rectum which may represent a nonspecific proctocolitis. 3. Cholelithiasis. 4. Internal hemorrhoids. 5. Severely atrophic left kidney. 6. Additional findings as above. ACT 112: Negative or not required by law. The above report was generated using voice recognition software. It may contain grammatical, syntax or spelling errors. Electronically signed by: Liam Francis M.D. 07/20/2024 11:48 AM Pending Results Patient Have Any Pending Studies at Discharge: Yes Discharge Instructions Given to Patient (Per Discharging Provider) You have been hospitalized for weakness and fatigue and found to have urinary tract infection. Cultures were obtained and you were provided with IV antibiotics and cultures showed klebsiella. You received 3 days of IV antibiotics and you are being sent home on bactrim one tablet twice daily for another 4 days. You also had low potassium and magnesium which are likely due to poor oral intake as well as diarrhea and replacement has been provided and normalized on repeat testing. You should continue to stay hydrated at discharge and drink 6-8 glasses of fluid daily to prevent dehydration which can cause UTIs. Pyridium has been used for bladder spasm/burning with urination and has been sent at discharge to use as needed up to three times daily. You may benefit from the addition of Premarin cream if dryness is an issue which can help as well and we are arranging for outpatient follow up referral to Urology for ongoing management/recommendations such as methenamine hippurate 1g by mouth twice daily which can be taken to prevent urinary tract infections. We have sent a prescription for this once finished your antibiotics and can follow up with primary care/urology for discussion prior to starting if desired. We did have therapy evaluate you while inpatient to ensure safe to return home and recommendations are for home health at discharge. I did send your primary care provider a message about your metoprolol use for your blood pressure and to follow up discussions about a possible Holter monitor given your heart rate does have fluctuations and can obtain monitor to ensure not having fast/slow rates that can contribute to falls and to consider if you are/are not having these issues to consider switching your metoprolol to medication like lisinopril/losartan given underlying diabetes which may be a better medication for you to prevent falls. Please follow up with primary care in the next 7-10 days after discharge to monitor your progress after hospitalization. Please return to the ER with any fever/chills, chest pain, shortness of breath, increased weakness, inability to keep up with oral hydration or for any other symptoms concerning for you. It has been a pleasure being a part of the medical team providing for you while you have been in the hospital. Take care! Total Time Total Time Spent Total Time Spent (In Minutes): 45 Coding Level of Care Code 15996 INP/OBS DISCH >30 MIN Diagnoses Acute UTI N39.0 Renal insufficiency N28.9 Pancolitis K51.00 Hypomagnesemia E83.42 Hyperbilirubinemia E80.6 Hypertension I10
[2024-07-23] MEDS: INFLUENZA VACC TS2024-25(65y+)/PF (IIV3) 0.5mL Syr IM ONE (13:30)
== END 2024-07-23 14:15 | disposition home health service (06) | DRG 690 ==
LOC: ED 09:02 → SUATTDRO 13:18 → 3W 13:18

== ENCOUNTER 2024-08-17 16:39 | Inpatient (IN) ==
[2024-08-17 17:09] LABS: Basophils # (auto) 0.06 K/uL (0.00-0.20); Basophils % (auto) 0.8 %; Eosinophils # (auto) 0.08 K/uL (0.00-0.50); Hematocrit (blood only) 36.8 % (37.0-47.0); Hemoglobin 11.8 g/dl (12.0-16.0); Immature Granulocytes # (auto) 0.06 K/uL (0.01-0.20); Immature Granulocytes % (auto) 0.8 %; Lymphocytes # (auto) 2.06 K/uL (1.20-3.40); Lymphocytes % (auto) 26.9 %; Mean Corpuscular Hemoglobin 29.5 pg (25.0-34.0); Mean Corpuscular Hgb Conc 32.1 g/dL (32.0-36.0); Mean Platelet Volume 9.8 fL (9.4-12.4); Monocytes # (auto) 1.22 K/uL (0.11-0.59); Monocytes % (auto) 15.9 %; Neutrophils # (auto) 4.17 K/uL (1.40-6.50); Neutrophils % (auto) 54.6 %; Platelet Count 353 K/uL (130-400); RDW Coefficient of Variation 14.5 % (11.5-14.5); RDW Standard Deviation 48.8 fL (36.4-46.3); White Blood Count 7.65 K/ul (4.8-10.8)
[2024-08-17 17:13] LABS: Appearance Urine Cloudy (Clear); Bilirubin Urine Negative (Negative); Blood Urine 3+ (Negative); Color Urine Yellow; Glucose Urine UA Negative (Negative); Ketones Urine Negative (Negative); Leukocyte Esterase Urine 3+ (Negative); Nitrite Urine Positive (Negative); Protein Urine 3+ (Negative); Urobilinogen Urine Negative (Negative)
[2024-08-17 17:25] LABS: Albumin Globulin Ratio 1.2 (0.9-2); Albumin Level 4.2 gm/dl (3.4-5.0); BUN Creatinine Ratio 24.3 (10-20); Bilirubin,Total 0.4 mg/dl (0.2-1.0); Calcium 9.7 mg/dl (8.6-10.3); Creatinine Clr Calc Pharmacy 24.6 ml/min; Globulin 3.4 gm/dl (2.5-4.0); Potassium 3.2 mmol/L (3.5-5.1); Total Protein 7.6 gm/dl (6.0-8.3)
--- NOTE | 2024-08-17 17:40 | Emergency Department Note ---
Impression & Plan KATY (acute kidney injury), Complicated UTI (urinary tract infection), Acute dehydration, Congenital solitary kidney ED Provider Note Name: CALE YADAV Age: 88 Sex: Female Arrives Via: Walk-In Informant: Patient ED Provider: Rudy Pedersen MD Chief Complaint: Urinary symptoms Impression: As per impressions above Medical Decision Making: Pleasant 88-year-old female with 1 month of UTI symptoms and now with several days of lack of appetite. Following with PCP who noted increasing creatinine and continued Klebsiella UTI despite antibiotic management. Most recent Klebsiella for a few days ago susceptible to Rocephin thus given IV antibiotics here. I do not feel patient is currently septic nor does she have evidence of severe sepsis or septic shock nor are there indications for blood cultures at this time. Creatinine is starting to improve consistent with her KATY and increased hydration at home. Given solitary kidney elevated creatinine and failure of outpatient antibiotic treatment Klebsiella, hospitalizations indicated. Triage/Nursing Notes reviewed by Me External Chart Review by me: I did review PCP note from 08/16/2024 discussing difficulties with management of UTI and worsening creatinine. Differential:Infection, dehydration, metabolic abnormality, hypo/hyperglycemia, electrolyte disturbance, anemia, hypoxia, cardiac sources, intracerebral event, toxicologic, neurologic, as well as other pathologies. Vital Signs: reviewed and remarkable for no significant abnormalities Interventions: Rocephin 2 g IV, normal saline bolus 1 L IV Labs:ED labs Reviewed by me and remarkable for elevated creatinine though improved from the other day Consults:Discussed with hospitalist for further management and hospitalization Plan: Disposition: Hospitalization Condition: Good History of Present Illness: 88-year-old female arrives for evaluation of complicated UTI. Patient diagnosed with Klebsiella UTI about 1 month ago. She has had multiple rounds of antibiotics but continues to have urinary burning and frequency. Notes that she has not had much of an appetite. She was seen by her PCP a few days ago. Her creatinine was elevated at that time to 2.0. Urine continues to grow out Klebsiella. Patient states that she is feeling a bit better today after increasing her fluid intake. She states she still has some urinary burning though. Does have a bit of fatigue. Denies any fevers, chills, nausea, vomiting, syncope, abdominal pain, flank pain or other concerning signs of symptoms. Denies any [id number] medications such as Tylenol or Motrin use. She was advised to come to the ER for further evaluation by her PCP as she would require inpatient stay for antibiotics. Past Medical History:See Below Home Medications:See Below Allergies:See Below Vitals:Blood Pressure: 125/71, Pulse 68, RR 18, T 36.5C, O2 99% on RA Physical Exam: GENERAL: Patient is mildly dehydrated appearing and in no acute distress. RESPIRATORY: No dyspnea. Clear to auscultation and equal bilaterally. CARDIOVASCULAR: Regular rate and rhythm.No murmur appreciated. GASTROINTESTINAL: Abdomen soft, non-tender, no peritonitis. BACK: No midline tenderness, no CVA tenderness EXTREMITIES: Normal motion all extremities, no cyanosis, no edema. NEUROLOGIC: Alert and oriented. No focal neurologic deficits appreciated SKIN: No rash, no jaundice, no diaphoresis. 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 Hypertension (Chronic) Peripheral neuropathy (Chronic) Hyperlipidemia (Chronic) Gout (Chronic) 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, right knee Right knee DJD Anemia Medical History (Updated 08/19/24 @ 09:15 by Rudy Pedersen MD) Cysts of both ovaries Hyperbilirubinemia Elevated troponin Sepsis Surgical History H/O bilateral oophorectomy S/P appendectomy Family History Father Stroke Son Tonsil cancer Mother Ovarian cancer Other No pertinent family history Denies family history of Sudden Prostate cancer Diabetes Coronary heart disease Cerebral aneurysm Depression Heart disease Breast cancer Lung cancer Colorectal cancer Lung disease Social History Smoking Status: Never smoker Second Hand Exposure: No; Do You Dip or Chew Tobacco: No; Hx Alcohol Use: No Hx Substance Use: No Preferred Language: Lao Communication Ability: Effective Visual Impairment: Partially Limited Hearing Ability: Use of Hearing Aid Employment Trainer Required: No Beliefs That Will Affect Care: None marital status: Current Living Situation: Alone current occupational status: retired Feels Safe at Home: Yes Safety Concerns: Feels Safe At This Time Childhood Exposure to Second-Hand Smoke: Yes Diet: regular caffeine: No Physical Activity Frequency: 1-2 Times per Week Seatbelt Use: always Sunscreen Use: Yes Assistive Devices: Scooter/Electric Scooter, Walker and Wheelchair Allergies Allergies Allergy/AdvReac Type Severity Reaction Status Date / Time No Known Allergies Allergy Verified 07/31/24 14:00 Home Meds Home Medications Medication Instructions Recorded Confirmed cholecalciferol (vitamin D3) 50 2,000 units PO DAILY 06/11/19 07/31/24 mcg (2,000 unit) tablet calcium 600 mg (as 1 tab PO DAILY 06/04/22 07/31/24 carbonate)-vitamin D3 10 mcg (400 unit) tablet (Calcium 600 + D(3)) multivitamin 1 tab PO DAILY 08/23/22 07/31/24 Previous Rx's Medication Instructions Recorded metformin 500 mg tablet,extended 500 mg PO DAILY 90 days #90 tabs 12/20/23 release 24hr (osmotic) metoprolol tartrate 50 mg tablet 50 mg PO BID #180 tabs 02/24/24 gabapentin 300 mg capsule 300 mg PO DAILY #90 caps 03/13/24 doxycycline hyclate 50 mg capsule 50 mg PO BID 30 days #60 caps 03/30/24 potassium chloride 10 mEq 10 meq PO DAILY #90 tabs 05/17/24 tablet,extended release rosuvastatin 5 mg tablet 5 mg PO DAILY 90 days #90 tabs 05/17/24 cyanocobalamin (vitamin B-12) 1,000 mcg PO DAILY #30 caps 07/23/24 1,000 mcg capsule famotidine 20 mg tablet 20 mg PO DAILY #30 tabs 07/23/24 magnesium chloride 64 mg 64 mg PO QAM #30 tabs 07/23/24 (magnesium chloride) tablet,delayed release (Mag 64) methenamine hippurate 1 gram tablet 1 g PO BID #60 tabs 07/23/24 phenazopyridine 100 mg tablet 100 mg PO Q8H PRN pain #20 tabs 07/23/24 (Pyridium) Results & Data (ED) Vital Signs Vital Signs - 24 hr 08/17/24 16:43 08/17/24 17:03 08/17/24 17:12 Temperature 36.5 C Temperature Source Temporal Artery Scan Pulse Rate 76 68 Pulse Rate [Apical] 79 Respiratory Rate 20 18 Respiratory Effort / Characteristics Non-Labored Spontaneous Respiratory Depth Normal Respiratory Pattern Regular Blood Pressure 125/73 Blood Pressure [Right Arm] 125/71 Blood Pressure Mean 90 Blood Pressure Mean [Right Arm] 89 Pulse Oximetry 97 99 Oxygen Delivery Method Room Air Room Air Sepsis Recent Fever Within 48 Hours No Sepsis New/Unexplained Change in Mental Status N/A Sepsis Action Taken by Nursing No Action Required Laboratory Data 08/18/24 07:06 08/19/24 07:47 Lab Results 08/17/24 Range/Units 16:52 WBC 7.65 (4.8-10.8) K/ul RBC 4.00 L (4.20-5.40) M/uL Hgb 11.8 L (12.0-16.0) g/dl Hct 36.8 L (37.0-47.0) % MCV 92.0 (80.0-100.0) fL MCH 29.5 (25.0-34.0) pg MCHC 32.1 (32.0-36.0) g/dL RDW Std Deviation 48.8 H (36.4-46.3) fL RDW Coeff of [place] 14.5 (11.5-14.5) % Plt Count 353 (130-400) K/uL MPV 9.8 (9.4-12.4) fL Immature Gran % (Auto) 0.8 % Neut % (Auto) 54.6 % Lymph % (Auto) 26.9 % [place] % (Auto) 15.9 % Eos % (Auto) 1.0 % Baso % (Auto) 0.8 % Neut # (Auto) 4.17 (1.40-6.50) K/uL Lymph # (Auto) 2.06 (1.20-3.40) K/uL [place] # (Auto) 1.22 H (0.11-0.59) K/uL Eos # (Auto) 0.08 (0.00-0.50) K/uL Baso # (Auto) 0.06 (0.00-0.20) K/uL Immature Gran # (Auto) 0.06 (0.01-0.20) K/uL Sodium 139 (136-145) mmol/L Potassium 3.2 L (3.5-5.1) mmol/L Chloride 112 H (98-107) mmol/L Carbon Dioxide 18 L (21-32) mmol/L Anion Gap 9 (3-11) BUN 36 H (6-23) mg/dl Creatinine 1.48 H (0.6-1.2) mg/dl Est Cr Clr Drug Dosing 24.6 ml/min eGFR 34.28 BUN/Creatinine Ratio 24.3 H (10-20) Glucose 128 H (70-99(Fasting)) mg/dl Calcium 9.7 (8.6-10.3) mg/dl Total Bilirubin 0.4 (0.2-1.0) mg/dl AST 35 (13-39) U/L ALT 21 (7-52) U/L Alkaline Phosphatase 65 (34-104) U/L Total Protein 7.6 (6.0-8.3) gm/dl Albumin 4.2 (3.4-5.0) gm/dl Globulin 3.4 (2.5-4.0) gm/dl Albumin/Globulin Ratio 1.2 (0.9-2) Urine Color Yellow Urine Appearance Cloudy A (Clear) Urine pH 6.0 (4.5-7.5) Ur Specific [place] 1.020 (1.000-1.030) Urine Protein 3+ H (Negative) Urine Glucose (UA) Negative (Negative) Urine Ketones Negative (Negative) Urine Blood 3+ H (Negative) Urine Nitrite Positive A (Negative) Urine Bilirubin Negative (Negative) Urine Urobilinogen Negative (Negative) Ur Leukocyte Esterase 3+ H (Negative) Urine RBC Cancelled Urine WBC Cancelled Ur Epithelial Cells Cancelled Urine Bacteria Cancelled Administered Medications Calcium/Vitamin D (Calcium 600mg + Vit D 400 Iu Tab) 1 tab PO DAILY JULIETTE Stop: 09/17/24 08:59 Last Admin: 08/19/24 08:46 Dose: 1 tab Documented By: Admin: 08/18/24 08:12 Dose: 1 tab Documented By: BHUMIKA Famotidine (Famotidine 20 Mg Tab) 20 mg PO DAILY JULIETTE Stop: 09/17/24 08:59 Last Admin: 08/19/24 08:46 Dose: 20 mg Documented By: Admin: 08/18/24 08:12 Dose: 20 mg Documented By: BHUMIKA Gabapentin (Gabapentin 300 Mg Cap) 300 mg PO DAILY JULIETTE Stop: 09/17/24 08:59 Last Admin: 08/19/24 08:46 Dose: 300 mg Documented By: Admin: 08/18/24 08:12 Dose: 300 mg Documented By: BHUMIKA Heparin Sodium (Porcine) (Heparin Sod 5,000 Unit/0.5 Ml Vial) 5,000 units SQ Q12 JULIETTE Stop: 09/17/24 08:59 Last Admin: 08/19/24 08:46 Dose: Not Given Documented By: Admin: 08/18/24 20:12 Dose: 5,000 units Documented By: Admin: 08/18/24 08:16 Dose: 5,000 units Documented By: BHUMIKA Ceftriaxone Sodium (Rocephin) 2,000 mg in 50 mls @ 100 mls/hr IV Q24H JULIETTE Stop: 08/23/24 17:59 Last Infusion: 08/18/24 18:27 Dose: Infused Documented By: Admin: 08/18/24 17:58 Dose: 100 mls/hr Documented By: BHUMIKA Magnesium Chloride (Magnesium Chloride W/Calcium 64mg Delayed Rel Tab) 64 mg PO QAM JULIETTE Stop: 09/17/24 08:59 Last Admin: 08/19/24 08:45 Dose: 64 mg Documented By: Admin: 08/18/24 08:12 Dose: 64 mg Documented By: BHUMIKA Metformin HCl (Metformin Hcl Er 500 Mg Tabcr) 500 mg PO DAILY JULIETTE Stop: 09/17/24 08:59 Last Admin: 08/19/24 08:46 Dose: 500 mg Documented By: Admin: 08/18/24 08:11 Dose: 500 mg Documented By: BHUMIKA Metoprolol Tartrate (Metoprolol Tartrate 50 Mg Tab) 50 mg PO BID JULIETTE Stop: 09/16/24 22:14 Last Admin: 08/19/24 08:46 Dose: 50 mg Documented By: Admin: 08/18/24 20:11 Dose: 50 mg Documented By: Admin: 08/18/24 08:11 Dose: 50 mg Documented By: Admin: 08/17/24 23:06 Dose: 50 mg Documented By: VASYL Multivitamins (Multivitamin Tab) 1 tab PO DAILY JULIETTE Stop: 09/17/24 08:59 Last Admin: 08/19/24 08:46 Dose: 1 tab Documented By: Admin: 08/18/24 08:12 Dose: 1 tab Documented By: BHUMIKA Potassium Chloride (Potassium Chloride 10 Meq Tabcr) 10 meq PO DAILY JULIETTE Stop: 09/17/24 08:59 Last Admin: 08/19/24 08:47 Dose: 10 meq Documented By: Admin: 08/18/24 08:16 Dose: 10 meq Documented By: BHUMIKA Rosuvastatin Calcium (Rosuvastatin Calcium 5 Mg Tab) 5 mg PO DAILY JULIETTE Stop: 09/17/24 08:59 Last Admin: 08/19/24 08:46 Dose: 5 mg Documented By: Admin: 08/18/24 08:12 Dose: 5 mg Documented By: BHUMIKA Vitamin D (Cholecalciferol 25 Mcg (1000 Units) Tab) 50 mcg PO DAILY JULIETTE Stop: 09/17/24 08:59 Last Admin: 08/19/24 08:46 Dose: 50 mcg Documented By: Admin: 08/18/24 08:12 Dose: 50 mcg Documented By: BHUMIKA Discontinued Medications Sodium Chloride (Nss) 1,000 mls @ 999 mls/hr IV .Q1H1M ONE Stop: 08/17/24 18:26 Last Infusion: 08/17/24 18:13 Dose: Infused Documented By: Admin: 08/17/24 17:41 Dose: 999 mls/hr Documented By: PIETER Ceftriaxone Sodium (Rocephin) 2,000 mg in 50 mls @ 100 mls/hr IV NOW STA Stop: 08/17/24 17:55 Last Infusion: 08/17/24 18:13 Dose: Infused Documented By: Admin: 08/17/24 17:42 Dose: 100 mls/hr Documented By: PIETER Lactated Ringer's (Lr) 1,000 mls @ 999 mls/hr IV .Q1H1M ONE Stop: 08/17/24 19:06 Last Infusion: 08/17/24 20:36 Dose: Infused Documented By: Admin: 08/17/24 18:14 Dose: 999 mls/hr Documented By: PIETER Sodium Bicarbonate 150 meq/ (Dextrose) 1,150 mls @ 125 mls/hr IV .Q9H12M JULIETTE Stop: 08/18/24 07:56 Last Infusion: 08/18/24 12:02 Dose: Infused Documented By: Admin: 08/17/24 23:06 Dose: 125 mls/hr Documented By: VASYL Magnesium Sulfate/Dextrose (Magnesium Sulfate / D5w) 1 gm in 100 mls @ 50 mls/hr IV Q2H JULIETTE Stop: 08/18/24 14:44 Last Infusion: 08/18/24 14:58 Dose: Infused Documented By: Admin: 08/18/24 12:50 Dose: 50 mls/hr Documented By: Infusion: 08/18/24 12:50 Dose: Infused Documented By: Admin: 08/18/24 11:14 Dose: 50 mls/hr Documented By: BHUMIKA Loperamide HCl (Loperamide Hcl 2 Mg Cap) 2 mg PO NOW STA Stop: 08/18/24 18:37 Last Admin: 08/18/24 20:12 Dose: 2 mg Documented By: SILVA Potassium Chloride (Potassium Chloride Crtab 20 Meq Tabcr) 40 meq PO NOW STA Stop: 08/17/24 23:57 Last Admin: 08/18/24 00:21 Dose: 40 meq Documented By: VASYL Potassium Chloride (Potassium Chloride Crtab 20 Meq Tabcr) 40 meq PO NOW STA Stop: 08/18/24 10:37 Last Admin: 08/18/24 11:14 Dose: 40 meq Documented By: BHUMIKA Discharge Plan Visit Data Chief Complaint: Flank Pain Stated Complaint: KIDNEY INFECTION, SENT BY [facility] ED Provider: Rudy Pedersen Discharge Problem: KATY (acute kidney injury), Complicated UTI (urinary tract infection), Acute dehydration, Congenital solitary kidney Patient Disposition: Admitted As Inpatient Discharge Instructions Interventions: ED Discharge Assessment Last Done: 08/17/24 20:08
[2024-08-17] MEDS: SODIUM CHLORIDE 0.9% 1,000 ML IV ONE (17:41)
[2024-08-17] MEDS: cefTRIAXone SODIUM 2,000 MG/50 ML BAG IV STA (17:42)
[2024-08-17] MEDS: LACTATED RINGER'S 1,000 ML IV ONE (18:14)
[2024-08-17] MEDS ORDERED: ONDANSETRON INJ 2 MG/ML 2 ML VIAL IV PRN (20:35)
--- NOTE | 2024-08-17 22:08 | History & Physical Report ---
Date of Service August 17, 2024 Assessment & Plan (1) KATY (acute kidney injury): Plan: Suspected pre-renal with current UTI NSS stopped after 500ml given non anion gap metabolic acidosis and LR 1L bolus given Start sodium bicarb 150 meq D5 (no sterile water) @ 125ml/hr for 1L overnight (2) UTI (urinary tract infection): Plan: Pansensitive Klebsiella grew on 08/14 not yet treated, presumably the same as not yet treated Ongoing symptoms with dysuria Ceftriaxone 2g IV Follow up repeat urine culture (3) Metabolic acidosis with normal anion gap and bicarbonate losses: Plan: Secondary to KATY, Sodium bicarb 1L as above Consider PO sodium bicarb if persistent (4) 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 She reports ongoing symptoms of dysuria for the last month no fully relived with previous antibiotics during July admission when she was initially treated with ceftriaxone and discharged on Bactrim. She notes much worse over the last week and outpatient urine culture grew Klebsiella pneumonia on 08/14 which she has not yet started antibiotics for as her labs showed KATY. Given she has a solitary kidney she was referred to the ER for admission. She denies any flank pain, nausea, vomiting, abdominal pain, back pain, fever or chills. Allergies Allergy/AdvReac Type Severity Reaction Status Date / Time No Known Allergies Allergy Verified 07/31/24 14:00 Home Medications Medication Instructions Recorded Confirmed Type cholecalciferol (vitamin D3) 50 2,000 units PO DAILY 06/11/19 07/31/24 History mcg (2,000 unit) tablet calcium 600 mg (as 1 tab PO DAILY 06/04/22 07/31/24 History carbonate)-vitamin D3 10 mcg (400 unit) tablet (Calcium 600 + D(3)) multivitamin 1 tab PO DAILY 08/23/22 07/31/24 History metformin 500 mg tablet,extended 500 mg PO DAILY 90 days #90 tabs 12/20/23 07/31/24 Rx release 24hr (osmotic) metoprolol tartrate 50 mg tablet 50 mg PO BID #180 tabs 02/24/24 07/31/24 Rx gabapentin 300 mg capsule 300 mg PO DAILY #90 caps 03/13/24 07/31/24 Rx doxycycline hyclate 50 mg capsule 50 mg PO BID 30 days #60 caps 03/30/24 07/31/24 Rx potassium chloride 10 mEq 10 meq PO DAILY #90 tabs 05/17/24 07/31/24 Rx tablet,extended release rosuvastatin 5 mg tablet 5 mg PO DAILY 90 days #90 tabs 05/17/24 07/31/24 Rx cyanocobalamin (vitamin B-12) 1,000 mcg PO DAILY #30 caps 07/23/24 07/31/24 Rx 1,000 mcg capsule famotidine 20 mg tablet 20 mg PO DAILY #30 tabs 07/23/24 07/31/24 Rx magnesium chloride 64 mg 64 mg PO QAM #30 tabs 07/23/24 07/31/24 Rx (magnesium chloride) tablet,delayed release (Mag 64) methenamine hippurate 1 gram tablet 1 g PO BID #60 tabs 07/23/24 07/31/24 Rx phenazopyridine 100 mg tablet 100 mg PO Q8H PRN pain #20 tabs 07/23/24 07/31/24 Rx (Pyridium) Past Med/Surg History Problem List (Updated 08/18/24 @ 06:51 by Dany Ta MD) Metabolic acidosis with normal anion gap and bicarbonate losses KATY (acute kidney injury) UTI (urinary tract infection) Pancolitis Hypomagnesemia Renal insufficiency Acute UTI Acute seborrheic otitis externa 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 Hypertension (Chronic) Peripheral neuropathy (Chronic) Hyperlipidemia (Chronic) Gout (Chronic) 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, right knee Right knee DJD Anemia Medical History Hyperbilirubinemia Elevated troponin KATY (acute kidney injury) UTI (urinary tract infection) Sepsis Surgical History H/O bilateral oophorectomy S/P appendectomy Family History Father Stroke Son Tonsil cancer Mother Ovarian cancer Other No pertinent family history Denies family history of Sudden Prostate cancer Diabetes Coronary heart disease Cerebral aneurysm Depression Heart disease Breast cancer Lung cancer Colorectal cancer Lung disease Social History Smoking Status: Never smoker Second Hand Exposure: No; Do You Dip or Chew Tobacco: No; Hx Alcohol Use: No Hx Substance Use: No Preferred Language: Swedish Communication Ability: Effective Visual Impairment: Partially Limited Hearing Ability: Use of Hearing Aid Airset Caster Required: No Beliefs That Will Affect Care: None marital status: Current Living Situation: Alone current occupational status: retired Feels Safe at Home: Yes Safety Concerns: Feels Safe At This Time Childhood Exposure to Second-Hand Smoke: Yes Diet: regular caffeine: No Physical Activity Frequency: 1-2 Times per Week Seatbelt Use: always Sunscreen Use: Yes Assistive Devices: Denture - Lower and Hearing Aid - Bilateral Review of Systems Review of Systems: All systems reviewed & are unremarkable except as noted in HPI & below Physical Exam Constitutional: WD/WN, vitals as above ENMT: Mouth: oral mucous membranes not dry Respiratory: normal respiratory effort, lungs clear to auscultation Cardiovascular: RRR, no murmur, no edema Gastrointestinal (Abdomen): Inspection/Auscultation: abdomen normal to inspection; abdomen not distended Percussion/Palpation: abdomen soft; abdomen nontender, no guarding and abdomen not rigid Skin: no rashes, warm and dry Neurologic: moves all extremities and awake; not confused Psychiatric: A+Ox3, euthymic affect Genitourinary: no CVA tenderness Results & Data Results & Data Vital Signs (Past 12 Hours) Vital Signs Temp Pulse Pulse Resp BP BP Pulse Ox 08/17/24 20:00 72 19 99/66 L 08/17/24 19:30 59 L 19 99 08/17/24 19:30 112/53 L 08/17/24 19:15 62 18 97 08/17/24 19:00 61 19 97 08/17/24 19:00 115/52 L 08/17/24 19:00 60 17 115/52 L 99 08/17/24 18:51 59 L 24 98 08/17/24 18:45 60 21 99 08/17/24 18:33 62 23 99 08/17/24 18:30 116/52 L 08/17/24 18:15 56 L 21 100 08/17/24 18:01 106/57 L 08/17/24 17:54 61 24 100 08/17/24 17:51 62 22 100 08/17/24 17:45 67 22 99 08/17/24 17:30 110/61 08/17/24 17:27 70 25 H 98 08/17/24 17:12 64 14 100 08/17/24 17:12 68 08/17/24 17:03 79 18 125/71 99 08/17/24 16:43 36.5 C 76 20 125/73 97 O2 Del Method 08/17/24 20:00 08/17/24 19:30 08/17/24 19:30 08/17/24 19:15 08/17/24 19:00 08/17/24 19:00 08/17/24 19:00 08/17/24 18:51 08/17/24 18:45 08/17/24 18:33 08/17/24 18:30 08/17/24 18:15 08/17/24 18:01 08/17/24 17:54 08/17/24 17:51 08/17/24 17:45 08/17/24 17:30 08/17/24 17:27 08/17/24 17:12 08/17/24 17:12 08/17/24 17:03 Room Air 08/17/24 16:43 Room Air Laboratory Results Abnormal lab results 08/17/24 Range/Units 16:52 RBC 4.00 L (4.20-5.40) M/uL Hgb 11.8 L (12.0-16.0) g/dl Hct 36.8 L (37.0-47.0) % RDW Std Deviation 48.8 H (36.4-46.3) fL [place] # (Auto) 1.22 H (0.11-0.59) K/uL Potassium 3.2 L (3.5-5.1) mmol/L Chloride 112 H (98-107) mmol/L Carbon Dioxide 18 L (21-32) mmol/L BUN 36 H (6-23) mg/dl Creatinine 1.48 H (0.6-1.2) mg/dl BUN/Creatinine Ratio 24.3 H (10-20) Glucose 128 H (70-99(Fasting)) mg/dl Urine Appearance Cloudy A (Clear) Urine Protein 3+ H (Negative) Urine Blood 3+ H (Negative) Urine Nitrite Positive A (Negative) Ur Leukocyte Esterase 3+ H (Negative) Diagnostic Findings None Medications Administered ER Medications Given: Normal saline 1L bolus (stopped after 500ml given) Ceftriaxone 2g IV Code Status & VTE Plan Code Status Full VTE Prophylaxis Plan VTE Prophylaxis will be ordered: Yes PG Care Time/CCT Total # of Minutes Spent Total Time Spent with Patient: Total time spent is greater than 50% in coordination of care (as documented) at patient's floor/unit and/or counseling patient: Coding Level of Care Code 16078 INT INP/OBS CARE 2MIN Diagnoses KATY (acute kidney injury) N17.9 Acute cystitis with hematuria N30.01 Hematuria presence: with hematuria Urinary tract infection type: acute cystitis Metabolic acidosis with normal anion gap and bicarbonate losses E87.20 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
[2024-08-17] MEDS ORDERED: STAT IV/IM STA (22:11)
[2024-08-17] MEDS: SODIUM BICARBONATE 8.4% 150 MEQ in DEXTROSE 5% 1,000 ML IV SCH (23:06)
[2024-08-17] MEDS: METOPROLOL TARTRATE 50 MG TAB PO SCH (23:06)
[2024-08-18] MEDS: POTASSIUM CHLORIDE CRTAB 20 MEQ TABCR PO STA ×2 (00:21→11:14)
[2024-08-18 07:29] LABS: Basophils # (auto) 0.04 K/uL (0.00-0.20); Basophils % (auto) 0.7 %; Eosinophils # (auto) 0.09 K/uL (0.00-0.50); Eosinophils % (auto) 1.5 %; Hematocrit (blood only) 30.1 % (37.0-47.0); Hemoglobin 9.9 g/dl (12.0-16.0); Immature Granulocytes # (auto) 0.04 K/uL (0.01-0.20); Immature Granulocytes % (auto) 0.7 %; Lymphocytes # (auto) 1.33 K/uL (1.20-3.40); Lymphocytes % (auto) 22.8 %; Mean Corpuscular Hemoglobin 29.6 pg (25.0-34.0); Mean Corpuscular Hgb Conc 32.9 g/dL (32.0-36.0); Mean Corpuscular Volume 89.9 fL (80.0-100.0); Monocytes # (auto) 0.92 K/uL (0.11-0.59); Monocytes % (auto) 15.8 %; Neutrophils # (auto) 3.41 K/uL (1.40-6.50); Neutrophils % (auto) 58.5 %; Platelet Count 269 K/uL (130-400); RDW Coefficient of Variation 14.4 % (11.5-14.5); RDW Standard Deviation 47.4 fL (36.4-46.3); Red Blood Count 3.35 M/uL (4.20-5.40); White Blood Count 5.83 K/ul (4.8-10.8)
[2024-08-18 07:45] LABS: BUN Creatinine Ratio 22.9 (10-20); Calcium 8.5 mg/dl (8.6-10.3); Creatinine Clr Calc Pharmacy 33.3 ml/min; Magnesium 1.5 mg/dl (1.7-2.4); Phosphorus 2.3 mg/dl (2.5-4.9); Potassium 3.1 mmol/L (3.5-5.1)
[2024-08-18] MEDS: metFORMIN HCL ER 500 MG TABCR PO SCH (08:11)
[2024-08-18] MEDS: CALCIUM 600MG + VIT D 400 IU TAB PO SCH (08:12)
[2024-08-18] MEDS: MAGNESIUM CHLORIDE W/CALCIUM 64MG DELAYED REL TAB PO SCH (08:12)
[2024-08-18] MEDS: ROSUVASTATIN CALCIUM 5 MG TAB PO SCH (08:12)
[2024-08-18] MEDS: MULTIVITAMIN TAB PO SCH (08:12)
[2024-08-18] MEDS: FAMOTIDINE 20 MG TAB PO SCH (08:12)
[2024-08-18] MEDS: CHOLECALCIFEROL 25 MCG (1000 UNITS) TAB PO SCH (08:12)
[2024-08-18] MEDS: GABAPENTIN 300 MG CAP PO SCH (08:12)
[2024-08-18] MEDS: HEPARIN SOD 5,000 UNIT/0.5 ML VIAL SQ SCH (08:16)
[2024-08-18] MEDS: POTASSIUM CHLORIDE 10 MEQ TABCR PO SCH (08:16)
[2024-08-18] MEDS: MAGNESIUM SULFATE / D5W 1 GM/100 ML BAG IV SCH (11:14)
--- NOTE | 2024-08-18 11:27 | Hospitalist Progress Note ---
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 Lamas. In agreement with the documented findings as noted in the resident documentation with any exceptions or additions as noted here. Resting comfortably in bed without acute complaint at present. On examination, S1/S2 nl RRR no MCG. CTAB. Abd NT/ND BS+ve Urinary tract infection - continue ceftriaxone and follow up UCx KATY in the setting of CKDIIIb, solitary kidney - likely secondary to above. Continue hydration and trend creatinine daily. Else see resident documentation as noted. Subjective Patient seen and evaluated at bedside this morning. No acute events overnight. Reports feeling overall better today. Improvement in dysuria with antibiotics. Reporting increase in urinary frequency and some loose stools. Hypokalemic and hypomagnesemic this am. Cr improved to baseline. Review of Systems Review of Systems: reviewed, per HPI Physical Exam Physical Exam: Constitutional: well-appearing, no acute distress HEENT: NCAT, no conjunctival injection CV: regular rhythm, no murmur appreciated, extremities well-perfused, no LE edema Resp: CTABL, no wheezes/rales/rhonchi appreciated, no increased work of breathing GI: soft, nondistended, nontender, BS normoactive MSK: no gross deformities appreciated Skin: warm, dry, no rash appreciated Neuro: alert, oriented, no focal neurologic deficit appreciated Results & Data Results & Data Vital Signs (Past 12 Hours) Vital Signs Temp Pulse Resp BP Pulse Ox O2 Del Method 08/18/24 10:47 Room Air 08/18/24 08:00 36.6 C 69 16 122/73 97 Room Air Resident Activity Tracking Resident Involvement: Resident Care Provided Care Provided: Adult [facility] Medicine
[2024-08-18] MEDS: cefTRIAXone SODIUM 2,000 MG/50 ML BAG IV SCH (17:58)
[2024-08-18] MEDS: LOPERAMIDE HCL 2 MG CAP PO STA (20:12)
[2024-08-19 07:36] VITALS: TEMP 98.2
[2024-08-19 08:34] LABS: BUN Creatinine Ratio 17.3 (10-20); Calcium 8.6 mg/dl (8.6-10.3); Creatinine Clr Calc Pharmacy 34.9 ml/min; Potassium 3.1 mmol/L (3.5-5.1)
[2024-08-19 11:39] LABS: Adenovirus F 40/41 PCR Not Detected (NotDetected); Astrovirus PCR Not Detected (NotDetected); Campylobacter PCR Not Detected (NotDetected); Cryptosporidium PCR Not Detected (NotDetected); Cyclospora cayetanensis PCR Not Detected (NotDetected); Entamoeba histolytica PCR Not Detected (NotDetected); Enteroaggregative E.coli(EAEC) Not Detected (NotDetected); Enteropathogenic E.coli (EPEC) Not Detected (NotDetected); Enterotoxigenic E.coli (ETEC) Not Detected (NotDetected); Giardia lamblia PCR Not Detected (NotDetected); Norovirus GI/GII PCR Not Detected (NotDetected); Plesiomonas shigelloides PCR Not Detected (NotDetected); Rotavirus A PCR Not Detected (NotDetected); Salmonella PCR Not Detected (NotDetected); Sapovirus PCR Not Detected (NotDetected); Shiga-like Toxin E.coli (STEC) Not Detected (NotDetected); Shigella/Enteroinvasive E.coli Not Detected (NotDetected); Vibrio cholerae PCR Not Detected (NotDetected); Vibrio species PCR Not Detected (NotDetected); Yersinia enterocolitica PCR Not Detected (NotDetected)
[2024-08-19] MEDS: POTASSIUM CHLORIDE CRTAB 20 MEQ TABCR PO STA ×2 (11:52→12:17)
--- NOTE | 2024-08-19 12:04 | Discharge Summary ---
Date of Service August 19, 2024 Admission HPI Per Admitting Provider Janis Cam is an 88 year old female who presents to the ER due to outpatient labs showing acute kidney injury. She reports ongoing symptoms of dysuria for the last month no fully relived with previous antibiotics during July admission when she was initially treated with ceftriaxone and discharged on Bactrim. She notes much worse over the last week and outpatient urine culture grew Klebsiella pneumonia on 08/14 which she has not yet started antibiotics for as her labs showed KATY. Given she has a solitary kidney she was referred to the ER for admission. She denies any flank pain, nausea, vomiting, abdominal pain, back pain, fever or chills. Admission Exam Per Admitting Provider Constitutional: WD/WN, vitals as above ENMT: Mouth: oral mucous membranes not dry Respiratory: normal respiratory effort, lungs clear to auscultation Cardiovascular: RRR, no murmur, no edema Gastrointestinal (Abdomen): Inspection/Auscultation: abdomen normal to inspection; abdomen not distended Percussion/Palpation: abdomen soft; abdomen nontender, no guarding and abdomen not rigid Skin: no rashes, warm and dry Neurologic: moves all extremities and awake; not confused Psychiatric: A+Ox3, euthymic affect Genitourinary: no CVA tenderness Principal Diagnosis UTI/KATY Discharge Exam Constitutional: well-appearing, no acute distress HEENT: NCAT, no conjunctival injection CV: regular rhythm, no murmur appreciated, extremities well-perfused, no LE edema Resp: CTABL, no wheezes/rales/rhonchi appreciated, no increased work of breathing GI: soft, nondistended, nontender, BS normoactive MSK: no gross deformities appreciated Skin: warm, dry, no rash appreciated Neuro: alert, oriented, no focal neurologic deficit appreciated Discharge Data Allergies Allergy/AdvReac Type Severity Reaction Status Date / Time No Known Allergies Allergy Verified 07/31/24 14:00 Consultations 08/17/24 17:59 ED Decision to Admit Stat Hospital Course (1) Complicated UTI (urinary tract infection): Dysuria improved following ceftriaxone during admission Will discharge with additional 5 days cefuroxime Patient with ongoing urinary frequency, has not seen urology in the past. Will make referral for evaluation as an outpatient Patient also with ongoing diarrhea, but only nocturnal - stool studies inpatient negative. 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: HbA1C 6.7 [07/21/2024] Continue metformin 500mg PO daily (4) Hypomagnesemia: Improved following repletion Recheck along with BMP would not be unreasonable (5) Hypokalemia: Remained low throughout hospitalization despite repletion Will dc with 20mEq daily Suggest repeat BMP within one week Total Time Total Time Spent Total Time Spent (In Minutes): see attending documentation Discharge Plan Discharge Items Patient Disposition: Home - Self-Care Reason For Visit: KATY, UTI Discharge Diagnosis: UTI Activity: Resume your previous activity Activity Comment: as tolerated Non-emergency contact: Primary Care Provider Call non-emergency contact if: you have any medication questions and your symptoms worsen Follow-up/Referrals: Davion Moore DO [Physician] - (Urinary frequency, urgency, frequent UTI) Jyoti Cornejo MD [Primary Care Provider] - Diet: Carb Consistent or DM2 and Heart Healthy Addtl Attending Provider Instructions: You were admitted to the hospital for urinary tract infection and acute kidney injury. You were treated with fluids and antibiotics. Your kidney function normalized and your urinary symptoms improved. While you were here you developed diarrhea. We tested your stool and found no evidence of infection. Because you have urinary frequency and have not been evaluated by urology in the past we will refer you to them. When you leave the hospital you will continue to take antibiotics for an additional 5 days. A discharge summary will be sent to your primary care physician to ensure continuity of care. Please bring this discharge summary with you to your next office appointment so that your provider can review it at that time. Follow-up appointments: Make a follow-up appointment with your PCP within the next week. It is very important that you follow up with them shortly after discharge from the hospital. We have requested a follow-up appointment with [facility] within on e week of discharge. Please call their office at [phone] if you do not hear from them. Keep all your follow-up appointments as already scheduled. If you cannot make an appointment, notify your provider. Medications: Your medication list has been reviewed and reconciled upon discharge to ensure accuracy and continuity of care. An updated list of all your medications is included with your hospital discharge paperwork. Please review this list closely, and make note of any changes. We sent a new medication called cefuroxime to your pharmacy. Take cefuroxime (500mg) one tablet daily for 5 days. We will provide you with two doses to take home with with you. You should take the first around 9:00pm tonight. DO NOT TAKE YOUR FAMOTIDINE WHILE TAKING THIS MEDICATION We sent a new medication called potassium chloride to your pharmacy. Take potassium chloride (20mEq) one tablet daily. If you have any issues filling these prescriptions, please call [phone] and ask to leave a message for Dr. Clem Lamas. Take your medications as instructed; do not skip a dose of your medicines. Make sure all of your doctors know every medicine you are taking (including lapk-mul-zlcnbci medicines, vitamins, and supplements). Call your primary care provider before taking any new medicines (including ygul-czh-xvudkih medicines, vitamins, and supplements), because some of these may interact with your current medications, or may make your symptoms worse. Tell your primary care provider if you cannot afford your medications. CONTACT YOUR PRIMARY CARE PROVIDER if you experience any of the following: Increased urinary frequency or burning Your diarrhea does not resolve Difficulty following your treatment plan, or difficulty taking medications CALL 911 OR GO TO THE EMERGENCY DEPARTMENT if you experience any of the following: Sudden, severe abdominal pain or nausea/vomiting Severe chest pain, or chest pain that radiates (moves) to your jaw or arm Sudden, severe shortness of breath or difficulty breathing Thank you for allowing us to participate in your care. Pending Studies at Discharge: No Stand-Alone Forms: My [facility] Medications and DC Order Prescriptions: New cefuroxime axetil 500 mg tablet 500 mg PO BID Qty: 8 0RF Continued metformin 500 mg tablet extended release 24 hr 500 mg PO DAILY 90 Days Qty: 90 3RF metoprolol tartrate 50 mg tablet 50 mg PO BID Qty: 180 3RF potassium chloride 10 mEq tablet extended release 10 meq PO DAILY Qty: 90 3RF rosuvastatin 5 mg tablet 5 mg PO DAILY 90 Days Qty: 90 3RF cholecalciferol (vitamin D3) 2,000 unit tablet 2,000 units PO DAILY gabapentin 300 mg capsule 300 mg PO DAILY Qty: 90 3RF multivitamin Tablet 1 tab PO DAILY calcium carbonate-vitamin D3 [Calcium 600 + D(3)] 600 mg-10 mcg (400 unit) Tablet 1 tab PO DAILY magnesium chloride [Mag 64] 64 mg Tablet,Delayed Release (Dr/Ec) 64 mg PO QAM Qty: 30 0RF phenazopyridine [Pyridium] 100 mg tablet 100 mg PO Q8H PRN (Reason: pain) Qty: 20 0RF cyanocobalamin (vitamin B-12) 1,000 mcg capsule 1,000 mcg PO DAILY Qty: 30 0RF methenamine hippurate 1 gram tablet 1 g PO BID Qty: 60 0RF Rx Instructions: DO NOT START THIS MEDICATION UNTIL DISCUSSION WITH FAMILY DOCTOR AND AFTER DONE WITH ORAL ANTIBIOTICS Held famotidine 20 mg tablet 20 mg PO DAILY Qty: 30 0RF Hold Instructions: Resume on 08/24/24. Do not take while taking your antibiotics. Once you complete the antibiotics you may resume. Discontinued doxycycline hyclate 50 mg capsule 50 mg PO BID 30 Days Qty: 60 2RF Discharge Orders: Discharge Order (Routine); Ordered 08/19/24 Ordered By: Clem Lamas Admission Data Admit Date/Time: 08/17/24 18:12 Attending Provider: Camilo Stapleton Admit Provider: Dany Ta Primary Care Provider: Jyoti Cornejo Other Providers: aDny Ta Other Interventions: Discharge Summary Assessment (RN) Last Done: 08/19/24 14:43 Supervising Physician Co-Signing Physician Notes Attending attestation Pt seen and examined in concert with Dr. Lamas. In agreement with the documented findings as noted in the resident documentation with any exceptions or additions as noted here. Resting comfortably in bed without acute complaint at present. On examination, S1/S2 nl RRR no MCG. CTAB. Abd NT/ND BS+ve Urinary tract infection - UCx w/ sensitivity to cephalosporin, as well as FQ and TMP/SMX. Will transition to cefuroxime to complete course. Recommended referral to urology for ongoing polyuria w/ concern for anatomic cause. KATY in the setting of CKDIIIb, solitary kidney - secondary to above, resolved with hydration and infection management. Would recheck BMP to ensure electrolyte stability and baseline creatinine. Else see resident documentation as noted. Total attending physician time spent with this patient's care on the day of discharge: 32 minutes. Resident Activity Tracking Resident Involvement: Resident Care Provided Care Provided: Adult [facility] Medicine
[2024-08-19] MEDS ORDERED: cefUROXime axetil 500 MG TAB PO SCH ×2 (14:30→21:00)
[2024-08-19 14:45] VITALS: BP 115/67; PULSE 60; RESP 16; O2SAT 96
== END 2024-08-19 17:30 | disposition home or self-care (01) | DRG 683 ==
LOC: ED 16:39 → SUATTDRO 18:12 → 3N 18:12

== ENCOUNTER 2025-07-02 04:25 | Observation (INO) ==
--- NOTE | 2025-07-02 04:36 | Emergency Department Note ---
ED DC CONDITION Conditon at Discharge Condition at Discharge: Good Impression & Plan Thoracic back pain Discharge ED Provider Note HPI: History obtained from The patient is a 89-year-old female with history of type 2 diabetes, chronic kidney disease, hypertension, presents to the emergency department with a chief complaint of upper back pain. Patient states that she developed some pain in the right upper portion of her back that started last evening. Patient states the pain acutely worsened overnight while she was trying to sleep and she could not get comfortable and could not sleep. Patient states at times the pain radiates from her back to her chest and her arms. On arrival here to the ED the patient is hemodynamically stable, she is in mild distress secondary to pain at times with certain movement but states that when she is still the pain seems to be improved. ROS: - Per HPI Differential Diagnosis: Aortic dissection, pleuritis, pulmonary embolism, acute coronary syndrome, costochondritis, degenerative changes of the lumbar spine with radicular pain, pneumothorax, amongst other potential pathologies. *Outpatient medications and allergy history reviewed. 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 Lab work shows no leukocytosis, hemoglobin stable 11.4, platelet count is normal, CMP does not show any evidence of any critical findings. Creatinine is 1.32 which appears to be baseline for the patient. Troponin is negative x 1. There is no transaminitis, bilirubin is normal. Chest x-ray per my interpretation does not show any evidence of acute disease, EKG shows sinus rhythm without acute ischemic changes per my interpretation. Given the location and radiation of the patient's pain with radiation to the chest and bilateral arms, CT angiography of the chest was obtained. CT angiography of the chest does not show any evidence of PE, no dissection. On my reassessment the patient states her pain is improved from previous. I suspect that the patient's pain is musculoskeletal in nature, she will be placed on a course of prednisone and she will utilize Tylenol at home as needed for pain. Patient was advised to return to the ER if she develops any new or acutely worsening symptoms. Patient was in agreement to this plan and she was placed for discharged in stable condition. Disposition discussion held by myself with: - Patient Discharge prescriptions: - Prednisone Diagnosis: 1. Thoracic back pain, acute, right-sided Disposition: Discharge Advised outpatient follow up that was discussed with the patient: -Return to the ED immediately with any new or worsening symptoms -Follow up with a PCP in 2-3 Days Bassam Figueroa DO Emergency Medicine Past Med/Surg History Problem List (Updated 07/02/25 @ 06:13 by Bassam Figueroa DO) Thoracic back pain (Acute) Lymphocytic colitis KATY (acute kidney injury) (Acute) Atrophic vaginitis (Chronic) Renal cyst (Chronic) Recurrent UTI (urinary tract infection) (Chronic) Type 2 diabetes mellitus with microalbuminuria Congenital solitary kidney (Chronic) Hypertension Hypomagnesemia 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 Hypertension (Chronic) Peripheral neuropathy (Chronic) Hyperlipidemia (Chronic) Gout (Chronic) 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, right knee Right knee DJD Medical History Pancolitis Acute dehydration Complicated UTI (urinary tract infection) Cysts of both ovaries Hyperbilirubinemia Elevated troponin Sepsis Surgical History H/O bilateral oophorectomy S/P appendectomy Family History Father Stroke Son Tonsil cancer Mother Ovarian cancer Other No pertinent family history Denies family history of Sudden Prostate cancer Diabetes Coronary heart disease Cerebral aneurysm Depression Heart disease Breast cancer Lung cancer Colorectal cancer Lung disease Social History Smoking Status: Never smoker Second Hand Exposure: No; Do You Dip or Chew Tobacco: No; Hx Alcohol Use: No Hx Substance Use: No Preferred Language: Indonesian Communication Ability: Effective Visual Impairment: Partially Limited Hearing Ability: Use of Hearing Aid 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 Beliefs That Will Affect Care: None marital status: Current Living Situation: Alone current occupational status: retired Feels Safe at Home: Yes Childhood Exposure to Second-Hand Smoke: Yes Diet: regular caffeine: No Physical Activity Frequency: 1-2 Times per Week Seatbelt Use: always Sunscreen Use: Yes Assistive Devices: Cane, Scooter/Electric Scooter, Walker and Wheelchair Allergies Allergies Allergy/AdvReac Type Severity Reaction Status Date / Time No Known Allergies Allergy Verified 06/27/25 09:27 Home Meds Home Medications Medication Instructions Recorded Confirmed cholecalciferol (vitamin D3) 50 2,000 units PO DAILY 06/11/19 06/27/25 mcg (2,000 unit) tablet multivitamin 1 tab PO DAILY 08/23/22 06/27/25 calcium 600 mg (as 1 tab PO DAILY 08/20/24 06/27/25 carbonate)-vitamin D3 10 mcg (400 unit) tablet (Calcium 600 + D(3)) Previous Rx's Medication Instructions Recorded cyanocobalamin (vitamin B-12) 1,000 mcg PO DAILY #30 caps 08/20/24 1,000 mcg capsule metoprolol tartrate 50 mg tablet 50 mg PO BID #180 tabs 03/13/25 Saccharomyces boulardii 250 mg 250 mg PO BID #60 caps 03/19/25 capsule blood-glucose meter #1 ea 03/21/25 sitagliptin phosphate 25 mg tablet 25 mg PO DAILY 30 days #30 tabs 04/15/25 (Januvia) budesonide 3 mg See Rx Instructions .Route QAM #90 04/18/25 capsule,delayed,extended release ea gabapentin 300 mg capsule 300 mg PO DAILY #90 caps 04/18/25 potassium chloride 20 mEq 20 meq PO DAILY #90 tabs 06/10/25 tablet,extended release rosuvastatin 5 mg tablet 5 mg PO DAILY 90 days #90 tabs 06/18/25 hydrocodone-homatropine 5 mg-1.5 5 ml PO Q6H PRN cough #250 mL 06/27/25 mg/5 mL oral solution (Hydromet) amlodipine 2.5 mg tablet 2.5 mg PO DAILY #30 tabs 07/01/25 prednisone 20 mg tablet 20 mg PO BID 5 days #10 tabs 07/02/25 Results & Data (ED) Vital Signs Vital Signs - 24 hr 07/02/25 04:31 07/02/25 04:37 07/02/25 04:47 Temperature 37.6 C H Temperature Source Oral Pulse Rate 92 H 92 H 88 Pulse Rate [Apical] Pulse Rhythm Regular Regular Pulse Rhythm [Apical] Pulse Strength Normal Pulse Strength [Apical] Respiratory Rate 18 18 Respiratory Effort / Characteristics Non-Labored Spontaneous Respiratory Depth Normal Respiratory Pattern Regular Blood Pressure 117/75 Blood Pressure [Right Arm] Blood Pressure Mean 89 Blood Pressure Mean [Right Arm] Blood Pressure Position Lying Blood Pressure Position [Right Arm] Pulse Oximetry 96 95 Oxygen Delivery Method Room Air Room Air Oxygen Flow Rate Sepsis Recent Fever Within 48 Hours No Sepsis New/Unexplained Change in Mental Status No Sepsis Action Taken by Nursing No Action Required 07/02/25 05:00 07/02/25 06:00 Temperature Temperature Source Pulse Rate Pulse Rate [Apical] 74 77 Pulse Rhythm Pulse Rhythm [Apical] Regular Regular Pulse Strength Pulse Strength [Apical] Normal Normal Respiratory Rate 14 16 Respiratory Effort / Characteristics Non-Labored Spontaneous Non-Labored Spontaneous Respiratory Depth Normal Normal Respiratory Pattern Regular Regular Blood Pressure Blood Pressure [Right Arm] 105/68 103/50 L Blood Pressure Mean Blood Pressure Mean [Right Arm] 80 67 Blood Pressure Position Blood Pressure Position [Right Arm] Lying Lying Pulse Oximetry 92 97 Oxygen Delivery Method Room Air Nasal Cannula Oxygen Flow Rate 2 Sepsis Recent Fever Within 48 Hours Sepsis New/Unexplained Change in Mental Status Sepsis Action Taken by Nursing Laboratory Data 07/02/25 04:25 07/02/25 04:25 Lab Results 07/02/25 Range/Units 04:25 WBC 9.72 (4.8-10.8) K/ul RBC 3.99 L (4.20-5.40) M/uL Hgb 11.4 L (12.0-16.0) g/dl Hct 35.7 L (37.0-47.0) % MCV 89.5 (80.0-100.0) fL MCH 28.6 (25.0-34.0) pg MCHC 31.9 L (32.0-36.0) g/dL RDW Std Deviation 44.7 (36.4-46.3) fL RDW Coeff of [place] 13.7 (11.5-14.5) % Plt Count 382 (130-400) K/uL MPV 9.7 (9.4-12.4) fL Immature Gran % (Auto) 0.5 % Neut % (Auto) 70.6 % Lymph % (Auto) 15.2 % [place] % (Auto) 12.3 % Eos % (Auto) 1.0 % Baso % (Auto) 0.4 % Neut # (Auto) 6.85 H (1.40-6.50) K/uL Lymph # (Auto) 1.48 (1.20-3.40) K/uL [place] # (Auto) 1.20 H (0.11-0.59) K/uL Eos # (Auto) 0.10 (0.00-0.50) K/uL Baso # (Auto) 0.04 (0.00-0.20) K/uL Immature Gran # (Auto) 0.05 (0.01-0.20) K/uL PT Cancelled INR Cancelled Sodium 137 (136-145) mmol/L Potassium 3.9 (3.5-5.1) mmol/L Chloride 107 (98-107) mmol/L Carbon Dioxide 21 (21-32) mmol/L Anion Gap 9 (3-11) BUN 21 (6-23) mg/dl Creatinine 1.32 H (0.6-1.2) mg/dl Est Cr Clr Drug Dosing 29.2 ml/min eGFR 39.08 BUN/Creatinine Ratio 15.9 (10-20) Glucose 151 H (70-99(Fasting)) mg/dl Calcium 9.3 (8.6-10.3) mg/dl Total Bilirubin 0.8 (0.2-1.0) mg/dl AST 21 (13-39) U/L ALT 10 (7-52) U/L Alkaline Phosphatase 61 (34-104) U/L Troponin I High Sens 6.7 (0-14) pg/ml Total Protein 7.5 (6.0-8.3) gm/dl Albumin 3.6 (3.4-5.0) gm/dl Globulin 3.9 (2.5-4.0) gm/dl Albumin/Globulin Ratio 0.9 (0.9-2) Lipase 12 (11-82) U/L Administered Medications Discontinued Medications Sodium Chloride (Nss) 500 mls @ 999 mls/hr IV .Q31M STA Stop: 07/02/25 05:04 Last Infusion: 07/02/25 05:10 Dose: Infused Documented By: Admin: 07/02/25 04:39 Dose: 999 mls/hr Documented By: JOSE Ioversol (Optiray 320 125ml) 118 ml IV ONCE ONE Stop: 07/02/25 05:25 Last Admin: 07/02/25 05:24 Dose: 118 ml Documented By: GABE Morphine Sulfate (Morphine Sulfate 4 Mg/Ml 1 Ml Carp\Vial) 4 mg IV NOW STA Stop: 07/02/25 04:40 Last Admin: 07/02/25 04:43 Dose: 4 mg Documented By: JOSE Ondansetron HCl (Ondansetron Inj 2 Mg/Ml 2 Ml Vial) 4 mg IV NOW STA Stop: 07/02/25 04:40 Last Admin: 07/02/25 04:43 Dose: 4 mg Documented By: JOSE Imaging Data Radiologist's Impression: Chest X-Ray 07/02/25 04:34 EXAM: XR chest 1V portable CLINICAL HISTORY: Chest pain, nonspecific TECHNIQUE: An X-ray image of the chest was obtained in the anteroposterior (AP) projection. COMPARISON: Comparison is made with the prior examination dated 07/20/2024. FINDINGS: Pulmonary Parenchyma: The lungs are clear bilaterally. There is no evidence of consolidation, collapse, or focal opacities. No pulmonary nodules are identified. There is no evidence of pleural effusion or pleural thickening. Heart and Mediastinum: The heart size and shape are normal. There is no mediastinal widening or masses. No hilar or mediastinal lymphadenopathy is noted. The aorta is ectatic with atheromatous calcification of the aortic arch. There is bilateral hilar prominence, which may be related to vascular enlargement, unchanged since the prior examination. Bony Thorax: The bony thorax appears intact without fractures or deformities. Soft Tissues: The soft tissues overlying the chest wall are unremarkable. IMPRESSION: 1. No acute cardiopulmonary abnormalities are identified. 2. Stable bilateral hilar prominence, which may be related to vascular engorgement or congestion. 3. No interval changes. Electronically signed by Nahum Niño 07-02-2025 05:55 AM Chest CTA 07/02/25 04:39 EXAM: CT angio chest PE protocol CLINICAL HISTORY: PE TECHNIQUE: Contiguous axial images were obtained from the neck base through the upper abdomen following intravenous administration of iodinated contrast material. Angiographic images were processed, 3D MIP images were acquired for interpretation. If IV contrast material had not been administered, the likelihood of detecting abnormalities relevant to the patient's condition would have been substantially decreased. Coronal and sagittal 3-D MIPs were likewise performed and indicated to increase the sensitivity of detectin diffuse clinically relevant pathology. CT scan was performed according to ALARA (as low as reasonably achievable). COMPARISON: None. FINDINGS: Mild dilatation of pulmonary trunk ,bilateral main pulmonary artery up to subsegmental level with mild tortuosity - suggest possibility of pulmonary arterial hypertension. Diffuse ill-defined ground-glass opacities with superimposed smooth interlobular septal thickening are noted involving bilateral lungs - suggestive of pulmonary congestion Diffuse ground-glass haze with multiple area of air trapping are noted involving both lungs giving mosaic attenuation. Adequate contrast bolus without evidence of pulmonary embolism. The central airways are patent. No pleural effusion. The heart, aorta, and pulmonary arteries are of normal size and configuration. There are coronary artery and aortic atherosclerotic calcifications. No pericardial effusion is identified. The thyroid is unremarkable. No mediastinal, hilar, or axillary lymphadenopathy is noted. No suspicious lytic or sclerotic osseous lesions are identified. Uncomplicated cholelithiasis noted. Small left kidney with diffuse thinning of renal cortex. IMPRESSION: 1. Mild dilatation of pulmonary trunk ,bilateral main pulmonary artery up to subsegmental level with mild tortuosity - suggest possibility of pulmonary arterial hypertension. 2. Diffuse ill-defined ground-glass opacities with superimposed smooth interlobular septal thickening are noted involving bilateral lungs - suggestive of pulmonary congestion 3. Diffuse ground-glass haze with multiple area of air trapping are noted involving both lungs giving mosaic attenuation. 4. No pulmonary embolism. Electronically signed by Yoav Donahue 07-02-2025 06:02 AM Discharge Plan Visit Data Chief Complaint: Back Injury/Pain Stated Complaint: BACK PAIN, RADIATES INTO ARMS AND SOMETIMES CHEST ED Provider: Bassam Figueroa Discharge Problem: Thoracic back pain Patient Disposition: Home - Self-Care Condition: Good Discharge Instructions Krames/Other Patient Handouts: ED [facility] Back Pain Activity Restrictions/Additional Instructions: Please follow-up with your primary care doctor in 2 to 3 days for reassessment and further care. Please return to the emergency room if you develop any new or acutely worsening symptoms. Please take prednisone as prescribed. Please utilize Tylenol as needed for pain, please follow dosage instructions as indicated on the packaging. Forms Stand Alone Forms: [facility], Important Visit Information Prescriptions Prescriptions: New prednisone 20 mg tablet 20 mg PO BID 5 Days Qty: 10 0RF No Action calcium carbonate-vitamin D3 [Calcium 600 + D(3)] 600 mg-10 mcg (400 unit) tablet 1 tab PO DAILY Rx Instructions: 03/25- OTC unable to verify cyanocobalamin (vitamin B-12) 1,000 mcg capsule 1,000 mcg PO DAILY Qty: 30 0RF Rx Instructions: 03/25- OTC unable to verify metoprolol tartrate 50 mg tablet 50 mg PO BID Qty: 180 3RF (DME) blood-glucose meter Kit See Rx Instructions .Route Qty: 1 0RF Rx Instructions: Check blood glucose once daily Januvia 25 mg tablet 25 mg PO DAILY 30 Days Qty: 30 2RF gabapentin 300 mg capsule 300 mg PO DAILY Qty: 90 3RF potassium chloride 20 mEq tablet extended release 20 meq PO DAILY Qty: 90 1RF rosuvastatin 5 mg tablet 5 mg PO DAILY 90 Days Qty: 90 3RF amlodipine 2.5 mg tablet 2.5 mg PO DAILY Qty: 30 2RF cholecalciferol (vitamin D3) 2,000 unit tablet 2,000 units PO DAILY Rx Instructions: 03/25- OTC unable to verify multivitamin Tablet 1 tab PO DAILY Rx Instructions: 03/25- OTC unable to verify Saccharomyces boulardii 250 mg capsule 250 mg PO BID Qty: 60 0RF Rx Instructions: 03/25- OTC unable to verify budesonide 3 mg capsule,delayed,extend.release See Rx Instructions .ROUTE QAM Qty: 90 0RF Rx Instructions: 6 mg daily in the morning for 30 days, then 3 mg daily in the morning for 30 days then stop hydrocodone-homatropine [Hydromet] 5-1.5 mg/5 mL solution 5 ml PO Q6H PRN (Reason: cough) Qty: 250 0RF Referrals Referrals: Jyoti Cornejo MD [Primary Care Provider] -
[2025-07-02] MEDS: SODIUM CHLORIDE 0.9% 500 ML IV STA (04:39)
[2025-07-02] MEDS: ONDANSETRON INJ 2 MG/ML 2 ML VIAL IV STA (04:43)
[2025-07-02] MEDS: MoRPHine SULFATE 4 MG/ML 1 ML CARP\\VIAL IV STA (04:43)
[2025-07-02 04:58] LABS: Hematocrit (blood only) 35.7 % (37.0-47.0); Hemoglobin 11.4 g/dl (12.0-16.0); Immature Granulocytes # (auto) 0.05 K/uL (0.01-0.20); Immature Granulocytes % (auto) 0.5 %; Mean Corpuscular Hemoglobin 28.6 pg (25.0-34.0); Mean Corpuscular Volume 89.5 fL (80.0-100.0); Platelet Count 382 K/uL (130-400); RDW Standard Deviation 44.7 fL (36.4-46.3); Red Blood Count 3.99 M/uL (4.20-5.40); White Blood Count 9.72 K/ul (4.8-10.8)
[2025-07-02 05:16] LABS: Alanine Aminotransferase 10.0 U/L (7-52); Albumin Globulin Ratio 0.9 (0.9-2); Alkaline Phosphatase 61.0 U/L (34-104); Anion Gap 9.0 (3-11); Bilirubin,Total 0.8 mg/dl (0.2-1.0); Blood Urea Nitrogen 21.0 mg/dl (6-23); Calcium 9.3 mg/dl (8.6-10.3); Carbon Dioxide 21.0 mmol/L (21-32); Chloride 107.0 mmol/L (98-107); Creatinine Clr Calc Pharmacy 29.2 ml/min; Globulin 3.9 gm/dl (2.5-4.0); Glucose 151.0 mg/dl (70-99(Fasting)); Lipase 12.0 U/L (11-82); Potassium 3.9 mmol/L (3.5-5.1); Sodium 137.0 mmol/L (136-145); Total Protein 7.5 gm/dl (6.0-8.3)
[2025-07-02] MEDS: OPTIRAY 320 125ml IV ONE (05:24)
--- NOTE | 2025-07-02 05:55 | XRay Report ---
EXAM: XR chest 1V portable CLINICAL HISTORY: Chest pain, nonspecific TECHNIQUE: An X-ray image of the chest was obtained in the anteroposterior (AP) projection. COMPARISON: Comparison is made with the prior examination dated 07/20/2024. FINDINGS: Pulmonary Parenchyma: The lungs are clear bilaterally. There is no evidence of consolidation, collapse, or focal opacities. No pulmonary nodules are identified. There is no evidence of pleural effusion or pleural thickening. Heart and Mediastinum: The heart size and shape are normal. There is no mediastinal widening or masses. No hilar or mediastinal lymphadenopathy is noted. The aorta is ectatic with atheromatous calcification of the aortic arch. There is bilateral hilar prominence, which may be related to vascular enlargement, unchanged since the prior examination. Bony Thorax: The bony thorax appears intact without fractures or deformities. Soft Tissues: The soft tissues overlying the chest wall are unremarkable. IMPRESSION: 1. No acute cardiopulmonary abnormalities are identified. 2. Stable bilateral hilar prominence, which may be related to vascular engorgement or congestion. 3. No interval changes. Electronically signed by Nahum Niño 07-02-2025 05:55 AM
--- NOTE | 2025-07-02 06:02 | CT Scan Report ---
EXAM: CT angio chest PE protocol CLINICAL HISTORY: PE TECHNIQUE: Contiguous axial images were obtained from the neck base through the upper abdomen following intravenous administration of iodinated contrast material. Angiographic images were processed, 3D MIP images were acquired for interpretation. If IV contrast material had not been administered, the likelihood of detecting abnormalities relevant to the patient's condition would have been substantially decreased. Coronal and sagittal 3-D MIPs were likewise performed and indicated to increase the sensitivity of detectin diffuse clinically relevant pathology. CT scan was performed according to ALARA (as low as reasonably achievable). COMPARISON: None. FINDINGS: Mild dilatation of pulmonary trunk ,bilateral main pulmonary artery up to subsegmental level with mild tortuosity - suggest possibility of pulmonary arterial hypertension. Diffuse ill-defined ground-glass opacities with superimposed smooth interlobular septal thickening are noted involving bilateral lungs - suggestive of pulmonary congestion Diffuse ground-glass haze with multiple area of air trapping are noted involving both lungs giving mosaic attenuation. Adequate contrast bolus without evidence of pulmonary embolism. The central airways are patent. No pleural effusion. The heart, aorta, and pulmonary arteries are of normal size and configuration. There are coronary artery and aortic atherosclerotic calcifications. No pericardial effusion is identified. The thyroid is unremarkable. No mediastinal, hilar, or axillary lymphadenopathy is noted. No suspicious lytic or sclerotic osseous lesions are identified. Uncomplicated cholelithiasis noted. Small left kidney with diffuse thinning of renal cortex. IMPRESSION: 1. Mild dilatation of pulmonary trunk ,bilateral main pulmonary artery up to subsegmental level with mild tortuosity - suggest possibility of pulmonary arterial hypertension. 2. Diffuse ill-defined ground-glass opacities with superimposed smooth interlobular septal thickening are noted involving bilateral lungs - suggestive of pulmonary congestion 3. Diffuse ground-glass haze with multiple area of air trapping are noted involving both lungs giving mosaic attenuation. 4. No pulmonary embolism. Electronically signed by Yoav Donahue 07-02-2025 06:02 AM
[2025-07-02 06:31] LABS: INR 1.1 (0.9-1.1); Prothrombin Time 11.9 Seconds (9.0-12.0)
[2025-07-02] MEDS ORDERED: PHARMACY GLYCEMIC MGMT CONSULT PRN (08:46)
[2025-07-02] MEDS ORDERED: ONDANSETRON INJ 2 MG/ML 2 ML VIAL IV PRN (08:49)
[2025-07-02] MEDS ORDERED: ACETAMINOPHEN 325 MG TAB PO PRN (08:49)
[2025-07-02] MEDS: FUROSEMIDE 40 MG/4 ML VIAL IV ONE (09:44)
[2025-07-02] MEDS: METOPROLOL TARTRATE 50 MG TAB PO ONE (10:54)
[2025-07-02] MEDS: ROSUVASTATIN CALCIUM 5 MG TAB PO ONE (10:55)
[2025-07-02] MEDS: POTASSIUM CHLORIDE CRTAB 20 MEQ TABCR PO ONE (10:55)
[2025-07-02] MEDS: GABAPENTIN 300 MG CAP PO ONE (10:55)
--- NOTE | 2025-07-02 11:41 | History & Physical Report ---
Date of Service July 02, 2025 Assessment & Plan (1) Acute respiratory failure with hypoxia: Plan: -CT showing pulmonary hypertension and pulmonary vascular congestion -lasix 40mg IV given -echo -cardiology consulted (2) Thoracic back pain: Plan: -CTA negative for dissection -likely 2nd to musculoskeletal pain -pain control (3) Hypertension: Plan: -metoprolol (4) Hyperlipidemia: Plan: -crestor (5) Diabetes: Plan: -pharm consult for glycemic management Plan Heparin SQ for DVT px History of Present Illness Chief Complaint: back pain Primary Care Provider: Jyoti Cornejo MD Pt is an 89 y/o female with pmh of HTN,DM, HLD who presented to the ER with severe acute back pain that radiates down her left arm. Pt denies any trauma or physical strain. EKG and first set of troponin were negative. PT had a CTA chest which showed pulmonary HTN and pulmonary vascular congestion, negative for PE and aortic dissection. Pt was given morphine for her pain and shortly after was found to be tachypneic and hypoxic. She was placed on , observed and remained hypoxic. Pt was given a dose of lasix for treatment of possible pulmonary vascular congestion and will be admitted for further work up of her acute hypoxia. Allergies Allergy/AdvReac Type Severity Reaction Status Date / Time No Known Allergies Allergy Verified 06/27/25 09:27 Home Medications Medication Instructions Recorded Confirmed Type cholecalciferol (vitamin D3) 50 2,000 units PO DAILY 06/11/19 07/02/25 History mcg (2,000 unit) tablet multivitamin 1 tab PO DAILY 08/23/22 07/02/25 History calcium 600 mg (as 1 tab PO DAILY 08/20/24 07/02/25 History carbonate)-vitamin D3 10 mcg (400 unit) tablet (Calcium 600 + D(3)) cyanocobalamin (vitamin B-12) 1,000 mcg PO DAILY #30 caps 08/20/24 07/02/25 Rx 1,000 mcg capsule metoprolol tartrate 50 mg tablet 50 mg PO BID #180 tabs 03/13/25 07/02/25 Rx Saccharomyces boulardii 250 mg 250 mg PO BID #60 caps 03/19/25 07/02/25 Rx capsule blood-glucose meter #1 ea 03/21/25 06/27/25 Rx sitagliptin phosphate 25 mg tablet 25 mg PO DAILY 30 days #30 tabs 06/30/25 09/16/25 Rx (Januvia) gabapentin 300 mg capsule 300 mg PO DAILY #90 caps 04/18/25 07/02/25 Rx potassium chloride 20 mEq 20 meq PO DAILY #90 tabs 06/10/25 07/02/25 Rx tablet,extended release rosuvastatin 5 mg tablet 5 mg PO DAILY 90 days #90 tabs 06/18/25 07/02/25 Rx hydrocodone-homatropine 5 mg-1.5 5 ml PO Q6H PRN cough #250 mL 06/27/25 07/02/25 Rx mg/5 mL oral solution (Hydromet) amlodipine 2.5 mg tablet 2.5 mg PO DAILY #30 tabs 07/01/25 07/02/25 Rx budesonide 3 mg 3 mg PO QAM 07/02/25 07/02/25 History capsule,delayed,extended release prednisone 20 mg tablet 20 mg PO BID 5 days #10 tabs 07/02/25 Rx Past Med/Surg History Problem List (Updated 07/02/25 @ 11:40 by Nathan Javier MD) Diabetes Acute respiratory failure with hypoxia Thoracic back pain (Acute) Lymphocytic colitis KATY (acute kidney injury) (Acute) Atrophic vaginitis (Chronic) Renal cyst (Chronic) Recurrent UTI (urinary tract infection) (Chronic) Type 2 diabetes mellitus with microalbuminuria Congenital solitary kidney (Chronic) Hypertension Hypomagnesemia 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 Hypertension (Chronic) Peripheral neuropathy (Chronic) Gout (Chronic) 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, right knee Right knee DJD Medical History (Updated 07/02/25 @ 11:40 by Nathan Javier MD) Hyperlipidemia Pancolitis Acute dehydration Complicated UTI (urinary tract infection) Cysts of both ovaries Hyperbilirubinemia Elevated troponin Sepsis Surgical History H/O bilateral oophorectomy S/P appendectomy Family History Father Stroke Son Tonsil cancer Mother Ovarian cancer Other No pertinent family history Denies family history of Sudden Prostate cancer Diabetes Coronary heart disease Cerebral aneurysm Depression Heart disease Breast cancer Lung cancer Colorectal cancer Lung disease Social History Smoking Status: Never smoker Second Hand Exposure: No; Do You Dip or Chew Tobacco: No; Hx Alcohol Use: No Hx Substance Use: No Preferred Language: Korean Communication Ability: Effective Visual Impairment: Partially Limited Hearing Ability: Use of Hearing Aid Thermograph Operator Required: No Beliefs That Will Affect Care: None marital status: Current Living Situation: Alone current occupational status: retired Feels Safe at Home: Yes Childhood Exposure to Second-Hand Smoke: Yes Diet: regular caffeine: No Physical Activity Frequency: 1-2 Times per Week Seatbelt Use: always Sunscreen Use: Yes Assistive Devices: Cane, Scooter/Electric Scooter, Walker and Wheelchair Review of Systems Review of Systems: CONST: Negative for fever, body aches and chills. HENT: Negative for neck pain/stiffness, headache, congestion, sore throat, swelling. EYES: Negative for discharge/pain or vision changes. RESP: Negative for cough/hemoptysis and shortness of breath. CV: Negative chest pain, difficulty breathing, palpitations. ABD: Negative pain, nausea, vomiting. : Negative increase frequency, dysuria, blood in urine or stool. MUSC: Negative for muscle aches, edema. Back pain SKIN: Negative rash, lesions/sores. NEURO: Negative headache, dizziness, weakness. Physical Exam Physical Exam: GENERAL APPEARANCE NAD, activity normal for age, well developed/ well nourished, no cyanosis, pallor, or diaphoresis. EYES lids/conjunctiva normal. EARS/NOSE/THROAT Mucous membranes moist, nares normal, lips/teeth normal uvula midline without oral pharyngeal erythema, exud ate or swelling TMs normal bilaterally. No lymphangitis/lymphedema. HEAD/NECK normocephalic atraumatic, no facial trauma, neck is supple. RESPIRATORY respiratory effort normal, speaks in full sentences, no tripod position, no accessory muscle use. Lungs clear to auscultation without rhonchi, wheezes, rales CARDIAC Regular rate and rhythm, no edema. ABDOMINAL Soft, ND/NT. No evidence of fluid wave. No pulsatile masses on exam, rebound tenderness, Pineda sign or pain over Mcburney's point. MUSCLES/EXTREMITIES No abnormal range of motion, no swelling. SKIN Warm, pink and dry. No rashes, dermatoses, petechiae or lesions. NEUROLOGICAL Speech is clear and appropriate. Normal level of consciousness. Gait and coordination are normal. 5/5 strength in all extremities. PSYCH Normal mood and affect. Judgement/competence is appropriate Results & Data Results & Data Vital Signs (Past 12 Hours) Vital Signs Temp Pulse Pulse Resp BP BP Pulse Ox 07/02/25 10:38 79 16 121/69 94 07/02/25 09:02 74 22 115/61 95 07/02/25 07:43 88 L 07/02/25 07:28 93 07/02/25 07:09 88 L 07/02/25 07:00 74 27 H 102/57 L 92 07/02/25 06:00 77 16 103/50 L 97 07/02/25 05:00 74 14 105/68 92 07/02/25 04:47 88 07/02/25 04:37 92 H 18 95 07/02/25 04:31 37.6 C H 92 H 18 117/75 96 O2 Del Method O2 Flow Rate 07/02/25 10:38 Room Air 07/02/25 09:02 Nasal Cannula 1 07/02/25 07:43 Nasal Cannula 0 07/02/25 07:28 Room Air 07/02/25 07:09 Nasal Cannula 0 07/02/25 07:00 Room Air 07/02/25 06:00 Nasal Cannula 2 07/02/25 05:00 Room Air 07/02/25 04:47 07/02/25 04:37 Room Air 07/02/25 04:31 Room Air PG Care Time/CCT Total # of Minutes Spent Total Time Spent with Patient: Total time spent is greater than 50% in coordination of care (as documented) at patient's floor/unit and/or counseling patient: Coding Level of Care Code 07790 INT INP/OBS CARE 2/55MIN Diagnoses Acute respiratory failure with hypoxia J96.01 Thoracic back pain M54.6 Hypertension I10 Hyperlipidemia E78.5 Diabetes E11.9
[2025-07-02] MEDS: SACCHAROMYCES BOULARDII 250 MG CAP PO SCH (12:09)
[2025-07-02] MEDS: CHOLECALCIFEROL 25 MCG (1000 UNITS) TAB PO SCH (12:31)
[2025-07-02] MEDS: CYANOCOBALAMIN (B-12) 500 MCG TABLET PO SCH (12:31)
[2025-07-02] MEDS: CALCIUM 600MG + VIT D 400 IU TAB PO SCH (12:31)
[2025-07-02] MEDS: MULTIVITAMIN TAB PO SCH (12:31)
--- NOTE | 2025-07-02 12:31 | Cardiology Consultation ---
Date of Consultation July 02, 2025 Assessment & Plan (1) Pulmonary HTN: Plan -Possible pulm htn per CTA of chest; incidental finding -Pulm htn can be handled outpatient; would refer to pulm medicine -Would order an echocardiogram to further assess possible pulm htn along with any signs of heart failure due to possible pulm congestion. -consider ordering bnp History of Present Illness Attending Physician: Nathan Javier MD History of Present Illness Janis is an 89-year-old female with a past medical history of HTN, DM 2, CKD 3, peripheral neuropathy who presented to the ER today due to weakness. Patient states that over the last several days she has noticed an increase of weakness to her lower extremities and feels more tired than normal. She has had to, "furniture surf," to get around her house which is not her norm. She also endorses neck pain, but feels that she may have slept on it wrong. She denies any recent episodes of chest discomfort or shortness of breath with or without exertion. She denies any presyncopal/syncopal events. She does not endorse any lower extremity edema. She does not smoke or drink alcohol. She eats a fairly healthy, low salt/fat diet at home. EKG upon arrival did not show any acute concern for ischemia. HS Troponin negative. CTA of the chest showed the possibility of pulmonary hypertension and possible vascular congestion. She was ordered 40mg of IV lasix. Cardiology was consulted for possible pulm htn and vascular congestion. Allergies Allergy/AdvReac Type Severity Reaction Status Date / Time No Known Allergies Allergy Verified 06/27/25 09:27 Home Medications Medication Instructions Recorded Confirmed Type cholecalciferol (vitamin D3) 50 2,000 units PO DAILY 06/11/19 07/02/25 History mcg (2,000 unit) tablet multivitamin 1 tab PO DAILY 08/23/22 07/02/25 History calcium 600 mg (as 1 tab PO DAILY 08/20/24 07/02/25 History carbonate)-vitamin D3 10 mcg (400 unit) tablet (Calcium 600 + D(3)) cyanocobalamin (vitamin B-12) 1,000 mcg PO DAILY #30 caps 08/20/24 07/02/25 Rx 1,000 mcg capsule metoprolol tartrate 50 mg tablet 50 mg PO BID #180 tabs 03/13/25 07/02/25 Rx Saccharomyces boulardii 250 mg 250 mg PO BID #60 caps 03/19/25 07/02/25 Rx capsule blood-glucose meter #1 ea 03/21/25 06/27/25 Rx sitagliptin phosphate 25 mg tablet 25 mg PO DAILY 30 days #30 tabs 04/15/25 07/02/25 Rx (Januvia) gabapentin 300 mg capsule 300 mg PO DAILY #90 caps 04/18/25 07/02/25 Rx potassium chloride 20 mEq 20 meq PO DAILY #90 tabs 06/10/25 07/02/25 Rx tablet,extended release rosuvastatin 5 mg tablet 5 mg PO DAILY 90 days #90 tabs 06/18/25 07/02/25 Rx hydrocodone-homatropine 5 mg-1.5 5 ml PO Q6H PRN cough #250 mL 06/27/25 07/02/25 Rx mg/5 mL oral solution (Hydromet) amlodipine 2.5 mg tablet 2.5 mg PO DAILY #30 tabs 07/01/25 07/02/25 Rx budesonide 3 mg 3 mg PO QAM 07/02/25 07/02/25 History capsule,delayed,extended release prednisone 20 mg tablet 20 mg PO BID 5 days #10 tabs 07/02/25 Rx Patient History Medical History (Updated 07/02/25 @ 13:26 by AMANDA Clement) Hyperlipidemia Pancolitis Acute dehydration Complicated UTI (urinary tract infection) Cysts of both ovaries Hyperbilirubinemia Elevated troponin Sepsis Surgical History H/O bilateral oophorectomy S/P appendectomy Family History Father Stroke Son Tonsil cancer Mother Ovarian cancer Other No pertinent family history Denies family history of Sudden Prostate cancer Diabetes Coronary heart disease Cerebral aneurysm Depression Heart disease Breast cancer Lung cancer Colorectal cancer Lung disease Social History Smoking Status: Never smoker Second Hand Exposure: No; Do You Dip or Chew Tobacco: No; Hx Alcohol Use: No Hx Substance Use: No Preferred Language: Polish Communication Ability: Effective Visual Impairment: Partially Limited Hearing Ability: Use of Hearing Aid Uniform Room Attendant Required: No Beliefs That Will Affect Care: None marital status: Current Living Situation: Alone current occupational status: retired Feels Safe at Home: Yes Childhood Exposure to Second-Hand Smoke: Yes Diet: regular caffeine: No Physical Activity Frequency: 1-2 Times per Week Seatbelt Use: always Sunscreen Use: Yes Assistive Devices: Denture - Lower and Hearing Aid - Bilateral Review of Systems Review of Systems: Per HPI Physical Exam Physical Exam: Physical Exam: AOx3. Mood affect appear normal. All questions appropriately. HEENT: Sclerae are anicteric. Pupils are equal and reactive to light and accommodation. Extraocular movements were intact. Neuro: Cranial nerves intact Lungs: Lungs are clear to auscultation bilaterally. There are no rales wheezes or rhonchi. Normal respiratory effort without use of accessory muscles. Cardiac: The rhythm was regular. S1 and S2 were normal. There are no murmurs on examination. The PMI was not markedly displaced on palpation. Extremities: Patient has bilateral radial pulses that are equal in intensity. There is no evidence cyanosis or clubbing. There was no evidence of significant peripheral edema bilaterally. Skin: There are no rashes noted on examination today. Results & Data Vital Signs (Past 12 Hours) Vital Signs Temp Pulse Pulse Resp BP BP Pulse Ox 07/02/25 12:13 63 07/02/25 11:53 36.3 C L 65 18 133/66 99 07/02/25 11:34 81 15 104/62 95 07/02/25 10:38 79 16 121/69 94 07/02/25 09:02 74 22 115/61 95 07/02/25 07:43 88 L 07/02/25 07:28 93 07/02/25 07:09 88 L 07/02/25 07:00 74 27 H 102/57 L 92 07/02/25 06:00 77 16 103/50 L 97 07/02/25 05:00 74 14 105/68 92 07/02/25 04:47 88 07/02/25 04:37 92 H 18 95 07/02/25 04:31 37.6 C H 92 H 18 117/75 96 O2 Del Method O2 Flow Rate 07/02/25 12:13 07/02/25 11:53 Room Air 07/02/25 11:34 Room Air 07/02/25 10:38 Room Air 07/02/25 09:02 Nasal Cannula 1 07/02/25 07:43 Nasal Cannula 0 07/02/25 07:28 Room Air 07/02/25 07:09 Nasal Cannula 0 07/02/25 07:00 Room Air 07/02/25 06:00 Nasal Cannula 2 07/02/25 05:00 Room Air 07/02/25 04:47 07/02/25 04:37 Room Air 07/02/25 04:31 Room Air PG Care Time/CCT Total # of Minutes Spent Total Time Spent with Patient: Total time spent is greater than 50% in coordination of care (as documented) at patient's floor/unit and/or counseling patient: [place] [address] IN/OBS CONSULT LVL 3,45M Patient Type New History Problem Focused Exam Problem Focused Medical Decision Making Low Complexity Diagnoses Pulmonary HTN I27.20
[2025-07-02] MEDS ORDERED: DEXTROSE 50% 50 ML SYRINGE IV PRN (12:45)
[2025-07-02] MEDS ORDERED: GLUCAGON FOR INJ 1 MG VIAL SQ PRN (12:45)
[2025-07-02] MEDS ORDERED: GLUCOSE 40% GEL 15 GM TUBE PO PRN (12:45)
[2025-07-02] MEDS ORDERED: CARBOHYDRATES FOR HYPOGLYCEMIA PO PRN (12:45)
[2025-07-02] MEDS ORDERED: GLUCOSE 10 TAB/TUBE PO PRN (12:45)
--- NOTE | 2025-07-02 12:48 | Pharmacy Report ---
Pharmacy Glycemic Short Note 2 - Date of Service July 02, 2025 - Glycemic Short BSG Results (Last 24 hours): 07/02/25 07/02/25 04:25 12:35 Glucose 151 H POC Glucose 181 H OUTPATIENT ANTIDIABETIC REGIMEN: * Sitagliptin 25 mg PO daily HbA1c: 6.7% (04/15/25) ASSESSMENT: * CP is an 89 year old female who presents with acute respiratory failure w/ hypoxia * CT demonstrating pulmonary hypertension/vascular congestion * Received one-time 80 mg IV dose of methylprednisolone in ED * Well-controlled T2DM as an outpatient on sitagliptin only * Anticipating increased insulin needs initially due to steroids, but will likely need to reduce tomorrow since no ongoing steroids PLAN FOR INPATIENT GLYCEMIC CONTROL: * Hold outpatient oral diabetes medications * Basal insulin * Lantus 0-5-10 units SC HS (see EHR for details) * Bolus insulin * NovoLog per scale ACHS or Q6hrs while NPO * Goal Range: Low 120 mg/dL - High 150 mg/dL * Correction Factor: 30 mg/dL/unit * Nutritional / Prandial insulin per carb ratio of 1 unit per 8 grams CHO consumed
[2025-07-02] MEDS: INSULIN ASPART PER UNIT CHARGE SC SCH (13:07)
--- NOTE | 2025-07-02 17:22 | XCELERA ---
[id number]
[2025-07-02] MEDS: ACETAMINOPHEN 325 MG TAB PO PRN (18:48)
[2025-07-02] MEDS: LANTUS PER UNIT CHARGE SC SCH (20:29)
[2025-07-02] MEDS: METOPROLOL TARTRATE 50 MG TAB PO SCH (20:30)
[2025-07-03 08:38] VITALS: BP 109/65; RESP 16; TEMP 97.9; O2SAT 96
[2025-07-03] MEDS: BUDESONIDE EC 3 MG CAP PO SCH (09:26)
[2025-07-03] MEDS: GABAPENTIN 300 MG CAP PO SCH (09:27)
[2025-07-03] MEDS: ROSUVASTATIN CALCIUM 5 MG TAB PO SCH (09:27)
[2025-07-03] MEDS: POTASSIUM CHLORIDE CRTAB 20 MEQ TABCR PO SCH (09:28)
--- NOTE | 2025-07-03 10:17 | Cardiology Progress Note ---
Date of Service July 03, 2025 Assessment & Plan (1) Pulmonary HTN: Plan: -Echocardiogram was completed yesterday. No mention of pulmonary hypertension. There is no enlargement noted to the right atrium or ventricle. Mild tricuspid regurgitation with normal RVSP. Not indicative of Pulm htn. If concern persists refer to pulm med. R heart cath is the gold standard for diagnosis. Plan - Admission and Anticipated Discharge Date Admission Date: July 02, 2025 Subjective Patient seen and examined at bedside this morning, chart reviewed. She voices no complaints today and was told she may be discharged. Echocardiogram was completed yesterday. No mention of pulmonary hypertension. There is no enlargement noted to the right atrium or ventricle. Mild tricuspid regurgitation with normal RVSP. Review of Systems Review of Systems: Per HPI Physical Exam Physical Exam: Physical Exam: AOx3. Mood affect appear normal. All questions appropriately. HEENT: Sclerae are anicteric. Pupils are equal and reactive to light and accommodation. Extraocular movements were intact. Neuro: Cranial nerves intact Lungs: Lungs are clear to auscultation bilaterally. There are no rales wheezes or rhonchi. Normal respiratory effort without use of accessory muscles. Cardiac: The rhythm was regular. S1 and S2 were normal. There are no murmurs on examination. The PMI was not markedly displaced on palpation. Extremities: Patient has bilateral radial pulses that are equal in intensity. There is no evidence cyanosis or clubbing. There was no evidence of significant peripheral edema bilaterally. Skin: There are no rashes noted on examination today. Results & Data Vital Signs (Past 12 Hours) Vital Signs Temp Pulse Pulse Pulse Resp BP Pulse Ox 07/03/25 08:38 36.6 C 67 16 109/65 96 07/03/25 07:36 52 L 07/03/25 03:46 36.3 C L 65 18 108/60 97 07/03/25 02:11 57 L 07/02/25 23:02 36.4 C L 57 L 18 115/60 98 O2 Del Method 07/03/25 08:38 Room Air 07/03/25 07:36 07/03/25 03:46 Room Air 07/03/25 02:11 07/02/25 23:02 Room Air PG Care Time/CCT Total # of Minutes Spent Total Time Spent with Patient: Total time spent is greater than 50% in coordination of care (as documented) at patient's floor/unit and/or counseling patient: Coding [place] [address] SUB INP/OBS CARE 11/10MIN Patient Type Established Medical Decision Making Straight Forward Diagnoses Pulmonary HTN I27.20
--- NOTE | 2025-07-03 11:16 | Discharge Summary ---
Discharge Summary Date of Service July 03, 2025 Principal Dx & Hospital Course #1 = Principal Diagnosis (1) Acute respiratory failure with hypoxia: -CT showing pulmonary hypertension and pulmonary vascular congestion -lasix 40mg IV given -echo -cardiology consult appreciated -no evidence of ACS -symptoms resolved (2) Thoracic back pain: -CTA negative for dissection -likely 2nd to musculoskeletal pain -pain control (3) Hypertension: -metoprolol (4) Hyperlipidemia: -crestor (5) Diabetes: -pharm consult for glycemic management Plan Heparin SQ for DVT px Admission HPI Per Admitting Provider Pt is an 89 y/o female with pmh of HTN,DM, HLD who presented to the ER with severe acute back pain that radiates down her left arm. Pt denies any trauma or physical strain. EKG and first set of troponin were negative. PT had a CTA chest which showed pulmonary HTN and pulmonary vascular congestion, negative for PE and aortic dissection. Pt was given morphine for her pain and shortly after was found to be tachypneic and hypoxic. She was placed on 02, observed and remained hypoxic. Pt was given a dose of lasix for treatment of possible pulmonary vascular congestion and will be admitted for further work up of her acute hypoxi a. Discharge Exam GENERAL APPEARANCE NAD, activity normal for age, well developed/ well nourished, no cyanosis, pallor, or diaphoresis. EYES lids/conjunctiva normal. EARS/NOSE/THROAT Mucous membranes moist, nares normal, lips/teeth normal uvula midline without oral pharyngeal erythema, exudate or swelling TMs normal bilaterally. No lymphangitis/lymphedema. HEAD/NECK normocephalic atraumatic, no facial trauma, neck is supple. RESPIRATORY respiratory effort normal, speaks in full sentences, no tripod position, no accessory muscle use. Lungs clear to auscultation without rhonchi, wheezes, rales CARDIAC Regular rate and rhythm, no edema. ABDOMINAL Soft, ND/NT. No evidence of fluid wave. No pulsatile masses on exam, rebound tenderness, Pineda sign or pain over Mcburney's point. MUSCLES/EXTREMITIES No abnormal range of motion, no swelling. SKIN Warm, pink and dry. No rashes, dermatoses, petechiae or lesions. NEUROLOGICAL Speech is clear and appropriate. Normal level of consciousness. Gait and coordination are normal. 5/5 strength in all extremities. PSYCH Normal mood and affect. Judgement/competence is appropriate Discharge Plan Discharge Items Patient Disposition: Home - Self-Care Reason For Visit: HYPOXIA, PULM HTN, VASCULAR CONGETION Discharge Diagnosis: Musculoskeletal back pain, acute hypoxia Condition on Discharge: Good Activity: Resume your previous activity Non-emergency contact: Primary Care Provider Call non-emergency contact if: you have any medication questions Follow-up/Referrals: Jyoti Cornejo MD [Primary Care Provider] - Diet: Carb Consistent or DM2 Addtl Attending Provider Instructions: Follow up with PMD in 1 week Pending Studies at Discharge: No Stand-Alone Forms: [employer], Smoking Cessation Medications and DC Order Prescriptions: New prednisone 20 mg tablet 20 mg PO BID 5 Days Qty: 10 0RF Continued calcium carbonate-vitamin D3 [Calcium 600 + D(3)] 600 mg-10 mcg (400 unit) tablet 1 tab PO DAILY Patient Comments: 07/02-otc unable to verify Rx Instructions: 03/25- OTC unable to verify cyanocobalamin (vitamin B-12) 1,000 mcg capsule 1,000 mcg PO DAILY Qty: 30 0RF Patient Comments: 07/02-otc unable to verify Rx Instructions: 03/25- OTC unable to verify metoprolol tartrate 50 mg tablet 50 mg PO BID Qty: 180 3RF (DME) blood-glucose meter Kit See Rx Instructions .Route Qty: 1 0RF Rx Instructions: Check blood glucose once daily Januvia 25 mg tablet 25 mg PO DAILY 30 Days Qty: 30 2RF gabapentin 300 mg capsule 300 mg PO DAILY Qty: 90 3RF potassium chloride 20 mEq tablet extended release 20 meq PO DAILY Qty: 90 1RF rosuvastatin 5 mg tablet 5 mg PO DAILY 90 Days Qty: 90 3RF amlodipine 2.5 mg tablet 2.5 mg PO DAILY Qty: 30 2RF cholecalciferol (vitamin D3) 2,000 unit tablet 2,000 units PO DAILY Patient Comments: 07/02-otc unable to verify Rx Instructions: 03/25- OTC unable to verify multivitamin Tablet 1 tab PO DAILY Patient Comments: 07/02-otc unable to verify Rx Instructions: 03/25- OTC unable to verify Saccharomyces boulardii 250 mg capsule 250 mg PO BID Qty: 60 0RF Patient Comments: 07/02-otc unable to verify Rx Instructions: 03/25- OTC unable to verify hydrocodone-homatropine [Hydromet] 5-1.5 mg/5 mL solution 5 ml PO Q6H PRN (Reason: cough) Qty: 250 0RF budesonide 3 mg capsule,delayed,extend.release 3 mg PO QAM Patient Comments: last filled 04/22 30 day supply Rx Instructions: 6 mg daily in the morning for 30 days, then 3 mg daily in the morning for 30 days then stop Discharge Orders: Discharge Order (Routine); Ordered 07/03/25 Ordered By: Nathan Javier Admission Data Admit Date/Time: 07/02/25 08:49 Attending Provider: Nathan Javier Admit Provider: Nathan Javier Primary Care Provider: Jyoti Cornejo Other Providers: Nathan Javier; Ismael Suggs Hospital Stay Data Consultations 07/02/25 08:43 ED Decision to Admit Stat 07/02/25 08:48 Consult Cardiology Routine Diagnostic Imagining Performed 07/02/25 04:39 CT angio chest PE protocol Stat Pending Results Patient Have Any Pending Studies at Discharge: No Discharge Instructions Given to Patient (Per Discharging Provider) Follow up with PMD in 1 week Total Time Total Time Spent Total Time Spent (In Minutes): 50 Coding Level of Care Code 53502 INP/OBS DISCH >30 MIN Diagnoses Acute respiratory failure with hypoxia J96.01 Thoracic back pain M54.6 Hypertension I10 Hyperlipidemia E78.5 Diabetes E11.9
[2025-07-03 12:28] VITALS: PULSE 65
--- NOTE | 2025-07-06 08:48 | Electrocardiogram Report ---
Test Reason : Blood Pressure : */* mmHG Vent. Rate : 87 BPM Atrial Rate : 87 BPM P-R Int : 162 ms QRS Dur : 88 ms QT Int : 374 ms P-R-T Axes : 18 -21 7 degrees QTcB Int : 450 ms Normal sinus rhythm Minimal voltage criteria for LVH, may be normal variant ( R in aVL ) Borderline ECG When compared with ECG of 31-Mar-2025 08:06, Premature ventricular complexes are no longer Present T wave inversion now evident in Inferior leads Confirmed by Ismael Suggs ([id number]) on 07/06/2025 8:48:13 AM Referred By: REFERRED SELF Confirmed By: Ismael Suggs
== END 2025-07-03 12:57 | disposition home or self-care (01) ==
LOC: ED 04:25 → 2N 04:25